=== PATIENT | male | born 1960 | race Caucasian/White ===

== ENCOUNTER → 2017-02-03 | Outpatient (CLI) | payer MEDICARE, OTHER ==
--- NOTE | 2017-02-03 13:26 | XR ---
EXAMINATION TYPE: XR chest 2V DATE OF EXAM: 02/03/2017 1:07 PM COMPARISON: NONE HISTORY: COPD exacerbation, cough TECHNIQUE: Frontal and lateral views of the chest are obtained. FINDINGS: There is no focal air space opacity, pleural effusion, or pneumothorax seen. The cardiac silhouette size is within normal limits. Lung volumes are increased. The osseous structures are inta ct. IMPRESSION: No acute cardiopulmonary process.
== END | disposition home or self-care (01) ==
LOC: RADXRMAIN 12:55
PROVIDERS: ATTEND Nurse Practitioner Family
DX: J44.1 Chronic obstructive pulmonary disease with (acute) exacerbation (principal)
CPT/HCPCS: 71020

== ENCOUNTER → 2018-01-22 | Outpatient (CLI) | payer MEDICARE, OTHER ==
--- NOTE | 2018-01-22 08:31 | CT ---
EXAMINATION TYPE: CT chest w con DATE OF EXAM: 01/22/2018 COMPARISON: NONE HISTORY: Cough CT DLP: 235.2 mGycm Automated exposure control for dose reduction was used. CONTRAST: CT scan of the chest is performed with IV Contrast, patient injected with 100 mL of Omnipaque 300. FINDINGS: LUNGS: The lungs are grossly clear, there is no concerning parenchymal mass or nodule identified. Mi ld upper lobe emphysematous change. There is no pleural effusion or pneumothorax seen. The tracheobr onchial tree is patent. MEDIASTINUM: There are no greater than 1 cm hilar or mediastinal lymph nodes. No pericardial effusi on is seen. Thoracic aorta is of normal caliber. The heart is not enlarged. UPPER ABDOMEN: Posterior segment right hepatic lobe hemangioma measuring 1.3 cm. Nonspecific 1.1 cm l esion of decreased attenuation with peripheral enhancement anterior segment right hepatic lobe may re flect hemangioma. Consider complete evaluation with the CT of the liver with hemangioma protocol. Sma ll sliding-type hiatal hernia. Hepatic steatosis. OTHER: No additional significant abnormality is seen. IMPRESSION: 1. Mild upper lobe emphysematous changes. 2. Probable hepatic hemangiomas which can be further characterized with contrast-enhanced hemangioma protocol CT.
== END | disposition home or self-care (01) ==
LOC: RADCTMAIN 07:28
PROVIDERS: ATTEND Internal Medicine Hematology & Oncology
DX: J43.9 Emphysema, unspecified (principal); Z87.891 Personal history of nicotine dependence; Z88.0 Allergy status to penicillin; Z88.8 Allergy status to other drugs, medicaments and biological substances
CPT/HCPCS: 71260; Q9967

== ENCOUNTER 2018-02-03 12:09 | Day surgery (SDC) | payer MEDICARE, OTHER ==
[2018-02-02 11:05] VITALS: BMI 22.2
[~2018-02-03 12:09] MED LIST: LIDOCAINE 1% 20 ML VIAL (10MG/ML) FOR IV START INTRADERMA PRN
[2018-02-03 13:06] VITALS: RESP 18; TEMP 97.7
[2018-02-03] MEDS: LACTATED RINGERS 1,000 ML IV SCH ×2 (13:14→13:57)
[2018-02-03] MEDS ORDERED: LIDOCAINE 1% 20 ML VIAL (10MG/ML) FOR IV START INTRADERMA ONE (13:15)
[2018-02-03] MEDS ORDERED: PROPOFOL 10 MG/ML 20 ML VIAL IV ONE (13:59)
--- NOTE | 2018-02-03 15:04 | P.PCN ---
Date of Procedure: 02/03/18 Procedure(s) Performed: Procedure: Colonoscopy and biopsy and polypectomy. Preoperative diagnosis: History of polyps and history of colitis. Postoperative diagnosis: 1. Mild sigmoid diverticulosis with no evidence of acute diverticulitis or strictures. 2. No evidence of colitis endoscopically random biopsies obtained. 3. Thee small polyps snared but no large polyps or cancer. Preparation: HalfLytely prep. Sedation: Was provided by anesthesia. Brief clinical history: The patient is a 57-year-old male who is scheduled for this evaluation because of history of colitis and history of polyps. The patient has no abdominal complaints, bleeding or anemia. His last colonoscopy was around 7 years ago. Procedure: With the patient on his left lateral decubitus position and after informed consent and adequate sedation, the perianal area was inspected and it did not show any fissures or fistulas. There were no masses felt on digital rectal examination. The Olympus CFQ 160L video colonoscope was then inserted in the rectum in the usual fashion and advanced to the cecum. I intubated the ileocecal valve and examined the terminal ileum. Terminal ileum and colon appeared healthy with no edema, erythema, friability, ulceration, exudation or spontaneous bleeding. I obtained random colon biopsies because of his history of colitis. There was occasional diverticular orifice seen in the sigmoid but no evidence of acute diverticulitis or strictures. 3 small polyps were seen to around the hepatic flexure and one in the proximal sigmoid all where snared and retrieved by suction but there were no large polyps or cancer. I retroflexed the endoscope in the rectum before the endoscope was withdrawn. The patient tolerated the procedure well. Plan: The patient was reassured. Will await pathology results. I anticipate repeating his colonoscopy in 5 years. He will follow up with you as planned.
[2018-02-03 15:20] VITALS: BP 123/80; PULSE 81
== END 2018-02-03 15:36 | disposition home or self-care (01) ==
LOC: ORWHC2ENDO 12:09
DX: D12.3 Benign neoplasm of transverse colon (principal); D12.5 Benign neoplasm of sigmoid colon; K57.30 Diverticulosis of large intestine without perforation or abscess without bleeding; Z86.010 Personal history of colon polyps; F17.210 Nicotine dependence, cigarettes, uncomplicated; J44.9 Chronic obstructive pulmonary disease, unspecified; M06.9 Rheumatoid arthritis, unspecified; Z79.899 Other long term (current) drug therapy; Z88.0 Allergy status to penicillin
CPT/HCPCS: 88305; 45380; 45385; J2704

== ENCOUNTER 2018-02-16 10:44 | Day surgery (SDC) | payer MEDICARE, OTHER ==
[2018-02-12 12:17] VITALS: BMI 22.2
[~2018-02-16 10:44] MED LIST changes: +LACTATED RINGERS 1,000 ML IV SCH; -LIDOCAINE 1% 20 ML VIAL (10MG/ML) FOR IV START INTRADERMA PRN; +Pre Op ABX Message 1 EACH MISC MISCELLANE ONE
[2018-02-16] MEDS ORDERED: LIDOCAINE 1% INJ 10MG/ML (20 ML MDV) ONE (12:17)
[2018-02-16] MEDS ORDERED: MIDAZOLAM 2 MG/2 ML VIAL ONE (12:17)
[2018-02-16] MEDS ORDERED: PROPOFOL 10 MG/ML 20 ML VIAL IV ONE (12:17)
[2018-02-16] MEDS ORDERED: fentaNYL (PF) 50 MCG/ML 2 ML AMP ONE (12:17)
--- NOTE | 2018-02-16 12:53 | PCN ---
PROCEDURE NOTE DATE OF SERVICE: 02/16/2018 PROCEDURE: Bone marrow aspirate and biopsy. INDICATION: Leukocytosis and peripheral blood was positive for BCR/ABL translocation. After obtaining consent from the patient, the procedure was performed in the endoscopy suite under general anesthesia performed by anesthesia team. The patient was put in the left lateral decubitus position. The right posterior superior iliac crest was localized. Skin was cleansed with ChloraPrep. All sterile procedures were followed. About to 2 mL of 2% Xylocaine was used for local anesthetic. Monoject needle was inserted, 15 mL aspirate and a 2 cm core biopsy was obtained without any difficulties. Pressure applied afterwards. There was negligible blood loss. Patient tolerated the procedure very well without any immediate complications. MMODL / IJN: [id number] /
[2018-02-16 12:54] VITALS: RESP 18
[2018-02-16 13:00] VITALS: BP 110/82; PULSE 64
[2018-02-16 13:02] LABS: HCT 46.9 % (39.0-53.0); HGB 16.4 gm/dL (13.0-17.5); MCH 31.2 pg (25.0-35.0); MCV 89.2 fL (80.0-100.0); Mean Platelet Volume 8.1; Platelet Count 364 k/uL (150-450); RBC 5.25 m/uL (4.30-5.90); RDW 15.9 % (11.5-15.5)
[2018-02-16 13:07] LABS: WBC 28.8 k/uL (3.8-10.6)
[2018-02-16 13:57] LABS: Neutrophils % (M) 70 %
[2018-02-16 13:58] LABS: Band Neutrophils % 2 %; Eosinophils # (M) 0.29 k/uL (0-0.7); Metamyelocytes # (M) 1.15 k/uL (0); Metamyelocytes % 4 %; Monocytes # (M) 1.15 k/uL (0-1.0); Myelocytes # (M) 1.15 k/uL (0); Myelocytes % 4 %; Nucleated Red Blood Cells 0 /100 WBC (0-0); Total Cells Counted 200; Toxic Granulation Present
== END 2018-02-16 13:24 | disposition home or self-care (01) ==
LOC: OR 10:44
PROVIDERS: ATTEND Internal Medicine Hematology & Oncology
DX: D72.828 Other elevated white blood cell count (principal); D72.820 Lymphocytosis (symptomatic); D72.821 Monocytosis (symptomatic); R71.8 Other abnormality of red blood cells; J43.9 Emphysema, unspecified; F20.9 Schizophrenia, unspecified; F32.9 Major depressive disorder, single episode, unspecified; Z86.010 Personal history of colon polyps; Z88.0 Allergy status to penicillin; F17.210 Nicotine dependence, cigarettes, uncomplicated; Z79.51 Long term (current) use of inhaled steroids; Z79.899 Other long term (current) drug therapy
CPT/HCPCS: 38222; 85025; J2250; J2001; J3010; J2704

== ENCOUNTER → 2019-02-02 | Outpatient (CLI) | payer MEDICARE, OTHER ==
--- NOTE | 2019-02-03 07:54 | XR ---
EXAMINATION TYPE: XR hand complete LT DATE OF EXAM: 02/02/2019 CLINICAL HISTORY: Fifth digit pain after remote injury. TECHNIQUE: Frontal, lateral and oblique images of the left hand are obtained. COMPARISON: None. FINDINGS: There is no acute fracture/dislocation evident in the left hand. Chronic fracture deformit y of the distal fifth metacarpal is noted. The joint spaces in the left hand appear within normal lockett its. The overlying soft tissue appears unremarkable. IMPRESSION: There is no acute fracture or dislocation in the left hand. Chronic fracture deformity o f the fifth distal left metacarpal.
== END | disposition home or self-care (01) ==
LOC: RADXRMAIN 16:52
PROVIDERS: ATTEND Pediatrics
DX: M84.442A Pathological fracture, left hand, initial encounter for fracture (principal)

== ENCOUNTER 2019-04-02 08:51 | Inpatient (IN) | payer MEDICARE, OTHER ==
[2019-04-02] MEDS ORDERED: methylPREDNISolone SOD SUCCI 125 MG/2 ML VIAL IV STA (09:09)
[2019-04-02] MEDS ORDERED: ALBUTEROL NEBULIZED 2.5 MG/3 ML INHALATION STA (09:09)
[2019-04-02] MEDS ORDERED: IPRATROPIUM 0.5 MG/2.5 ML NEBU INHALATION STA (09:09)
--- NOTE | 2019-04-02 09:12 | ED ---
General Adult HPI - General Chief complaint: Shortness of Breath Stated complaint: SOB Time Seen by Provider: 04/02/19 09:05 Source: patient, RN notes reviewed, old records reviewed Mode of arrival: ambulatory Limitations: no limitations - History of Present Illness Initial comments: 59-year-old male presents with 5 day history of cough and dyspnea. Patient has had productive cough which has worsened over the past 5 days. He was seen by his primary care physician and prescribed antibiotic and steroids. This is felt to improve his symptoms. He does endorse subjective fever and chills. No history DVT or PE. He has current history of leukemia and is being treated by oncology. Denies chest pain. Denies abdominal pain or nausea vomiting. Denies lower extremity pain or swelling. - Related Data Home Medications Medication Instructions Recorded Confirmed Sertraline HCl [Zoloft] 100 mg PO DAILY 02/02/18 04/02/19 Diphenox-Atrop 2.5-0.025 mg 1 tab PO 5XD PRN 04/02/19 04/02/19 [Lomotil] Imatinib Mesylate 400 mg PO DAILY 04/02/19 04/02/19 Allergies Allergy/AdvReac Type Severity Reaction Status Date / Time Penicillins Allergy Anaphylaxis Verified 04/02/19 09:36 Review of Systems ROS Statement: Those systems with pertinent positive or pertinent negative responses have been documented in the HPI. ROS Other: All systems not noted in ROS Statement are negative. Past Medical History Past Medical History: Cancer, COPD, Rheumatoid Arthritis (RA) Additional Past Medical History / Comment(s): SKIN CANCER, "chronic leukemia" per pt. History of Any Multi-Drug Resistant Organisms: None Reported Past Surgical History: Orthopedic Surgery Additional Past Surgical History / Comment(s): LEFT LEG- WITH OSEI, recent colonoscopy Past Anesthesia/Blood Transfusion Reactions: No Reported Reaction Past Psychological History: Depression, Schizophrenia Smoking Status: Current every day smoker Past Alcohol Use History: None Reported Past Drug Use History: None Reported - Past Family History Father Family Medical History: Cancer Additional Family Medical History / Comment(s): LEUKEMIA Brother(s) Family Medical History: Deep Vein Thrombosis (DVT) General Exam Limitations: no limitations General appearance: alert, in no apparent distress Head exam: Present: atraumatic, normocephalic Eye exam: Present: normal appearance, PERRL ENT exam: Present: normal exam Neck exam: Present: normal inspection. Absent: tenderness, meningismus Respiratory exam: Present: respiratory distress, wheezes, decreased breath sounds, prolonged expiratory Cardiovascular Exam: Present: regular rate, normal rhythm GI/Abdominal exam: Present: soft. Absent: distended, tenderness Extremities exam: Present: normal inspection, normal capillary refill. Absent: pedal edema, calf tenderness Neurological exam: Present: alert, oriented X3, CN II-XII intact. Absent: motor sensory deficit Psychiatric exam: Present: normal affect, normal mood Skin exam: Present: warm, dry, intact. Absent: cyanosis, diaphoretic Course Vital Signs 04/02/19 04/02/19 04/02/19 08:55 09:30 09:47 Temperature 97.5 F L Pulse Rate 88 77 85 Respiratory 20 20 Rate Blood Pressure 134/80 123/76 O2 Sat by Pulse 89 L 97 Oximetry 04/02/19 04/02/19 04/02/19 10:00 10:10 10:30 Temperature Pulse Rate 88 101 H 96 Respiratory 15 18 Rate Blood Pressure 113/78 122/71 O2 Sat by Pulse 99 95 Oximetry 04/02/19 10:59 Temperature Pulse Rate 94 Respiratory 16 Rate Blood Pressure 123/70 O2 Sat by Pulse 94 L Oximetry EKG Findings - EKG Comments: EKG Findings:: EKG: Normal sinus rhythm rate of 81, ND interval 148, QRS duration 102, QTC 441, suspect atrial enlargement, no ST segment elevation Medical Decision Making - Medical Decision Making 59-year-old male with cough and dyspnea. Patient has hypoxia on initial evaluation, he is wheezing and rhonchi throughout both lung thomas. Chest x-ray is obtained, negative for focal infiltrate, he has leukocytosis with a white blood cell count 15, MiraLAX and abnormalities which are replaced in the emergency department including hypokalemia and hypomagnesemia. CT is performed secondary to elevated d-dimer which shows concern for developing multifocal pneumonia. He is started on IV antibiotics. Will be admitted for COPD exacerbation. - Lab Data Result diagrams: 04/02/19 09:20 04/02/19 09:20 Lab Results 04/02/19 04/02/19 04/02/19 Range/Units 09:20 09:20 09:20 WBC 15.0 H (3.8-10.6) k/uL RBC 3.78 L (4.30-5.90) m/uL Hgb 11.9 L (13.0-17.5) gm/dL Hct 35.5 L (39.0-53.0) % MCV 93.9 (80.0-100.0) fL MCH 31.5 (25.0-35.0) pg MCHC 33.5 (31.0-37.0) g/dL RDW 15.5 (11.5-15.5) % Plt Count 343 (150-450) k/uL Neutrophils % 93 % Lymphocytes % 3 % Monocytes % 3 % Eosinophils % 1 % Basophils % 0 % Neutrophils # 14.0 H (1.3-7.7) k/uL Lymphocytes # 0.4 L (1.0-4.8) k/uL Monocytes # 0.5 (0-1.0) k/uL Eosinophils # 0.1 (0-0.7) k/uL Basophils # 0.0 (0-0.2) k/uL PT 10.2 (9.0-12.0) sec INR 0.9 (<1.2) APTT 27.2 (22.0-30.0) sec D-Dimer 0.68 H (<0.60) mg/L FEU Sodium 135 L (137-145) mmol/L Potassium 3.2 L (3.5-5.1) mmol/L Chloride 93 L (98-107) mmol/L Carbon Dioxide 35 H (22-30) mmol/L Anion Gap 7 mmol/L BUN 45 H (9-20) mg/dL Creatinine 0.45 L (0.66-1.25) mg/dL Est GFR (CKD-EPI)AfAm >90 (>60 ml/min/1.73 sqM) Est GFR (CKD-EPI)NonAf >90 (>60 ml/min/1.73 sqM) Glucose 142 H (74-99) mg/dL Plasma Lactic Acid Ortiz (0.7-2.0) mmol/L Calcium 9.6 (8.4-10.2) mg/dL Magnesium 1.5 L (1.6-2.3) mg/dL Total Bilirubin 0.3 (0.2-1.3) mg/dL AST 87 H (17-59) U/L ALT 48 (21-72) U/L Alkaline Phosphatase 51 (38-126) U/L Troponin I (0.000-0.034) ng/mL NT-Pro-B Natriuret Pep pg/mL Total Protein 6.1 L (6.3-8.2) g/dL Albumin 4.1 (3.5-5.0) g/dL 04/02/19 04/02/19 04/02/19 Range/Units 09:20 09:20 09:20 WBC (3.8-10.6) k/uL RBC (4.30-5.90) m/uL Hgb (13.0-17.5) gm/dL Hct (39.0-53.0) % MCV (80.0-100.0) fL MCH (25.0-35.0) pg MCHC (31.0-37.0) g/dL RDW (11.5-15.5) % Plt Count (150-450) k/uL Neutrophils % % Lymphocytes % % Monocytes % % Eosinophils % % Basophils % % Neutrophils # (1.3-7.7) k/uL Lymphocytes # (1.0-4.8) k/uL Monocytes # (0-1.0) k/uL Eosinophils # (0-0.7) k/uL Basophils # (0-0.2) k/uL PT (9.0-12.0) sec INR (<1.2) APTT (22.0-30.0) sec D-Dimer (<0.60) mg/L FEU Sodium (137-145) mmol/L Potassium (3.5-5.1) mmol/L Chloride (98-107) mmol/L Carbon Dioxide (22-30) mmol/L Anion Gap mmol/L BUN (9-20) mg/dL Creatinine (0.66-1.25) mg/dL Est GFR (CKD-EPI)AfAm (>60 ml/min/1.73 sqM) Est GFR (CKD-EPI)NonAf (>60 ml/min/1.73 sqM) Glucose (74-99) mg/dL Plasma Lactic Acid Ortiz 1.2 (0.7-2.0) mmol/L Calcium (8.4-10.2) mg/dL Magnesium (1.6-2.3) mg/dL Total Bilirubin (0.2-1.3) mg/dL AST (17-59) U/L ALT (21-72) U/L Alkaline Phosphatase (38-126) U/L Troponin I 0.031 (0.000-0.034) ng/mL NT-Pro-B Natriuret Pep 847 pg/mL Total Protein (6.3-8.2) g/dL Albumin (3.5-5.0) g/dL Disposition Clinical Impression: Acute exacerbation of chronic obstructive airways disease, Community acquired pneumonia Disposition: ADMITTED IP TO THIS HOSP Condition: Stable Is patient prescribed a controlled substance at d/c from ED?: No Referrals: Chava Manzo MD [Primary Care Provider] - 1-2 days Decision to Admit Reason: Admit from EC Decision Date: 04/02/19 Decision Time: 11:58
[2019-04-02 09:48] LABS: Basophils % (A) 0 %; Eosinophils # (A) 0.1 k/uL (0-0.7); Eosinophils % (A) 1 %; HCT 35.5 % (39.0-53.0); HGB 11.9 gm/dL (13.0-17.5); Lymphocytes # (A) 0.4 k/uL (1.0-4.8); Lymphocytes % (A) 3 %; MCH 31.5 pg (25.0-35.0); MCHC 33.5 g/dL (31.0-37.0); MCV 93.9 fL (80.0-100.0); Mean Platelet Volume 6.8; Monocytes # (A) 0.5 k/uL (0-1.0); Monocytes % (A) 3 %; Neutrophils % (A) 93 %; Platelet Count 343 k/uL (150-450); RBC 3.78 m/uL (4.30-5.90); RDW 15.5 % (11.5-15.5)
[2019-04-02 10:02] LABS: INR 0.9 (<1.2); Partial Thromboplastin Time 27.2 sec (22.0-30.0); Prothrombin Time 10.2 sec (9.0-12.0)
[2019-04-02 10:04] LABS: ALT 48 U/L (21-72); AST 87 U/L (17-59); Albumin 4.1 g/dL (3.5-5.0); Alkaline Phosphatase 51 U/L (38-126); Anion Gap 7 mmol/L; Blood Urea Nitrogen 45 mg/dL (9-20); Calcium 9.6 mg/dL (8.4-10.2); Carbon Dioxide 35 mmol/L (22-30); Chloride 93 mmol/L (98-107); Glucose 142 mg/dL (74-99); Magnesium 1.5 mg/dL (1.6-2.3); Potassium 3.2 mmol/L (3.5-5.1); Sodium 135 mmol/L (137-145); Total Bilirubin 0.3 mg/dL (0.2-1.3); Total Protein 6.1 g/dL (6.3-8.2)
[2019-04-02 10:30] LABS: D-Dimer 0.68 mg/L FEU (<0.60)
[2019-04-02] MEDS ORDERED: POTASSIUM CHLORIDE ER 20 MEQ TAB.ER PO STA (10:30)
[2019-04-02] MEDS ORDERED: AZITHROMYCIN 500 MG in SODIUM CHLORIDE 0.9% 250 ML IVPB STA (10:30)
--- NOTE | 2019-04-02 10:34 | XR ---
EXAMINATION TYPE: XR chest 2V DATE OF EXAM: 04/02/2019 COMPARISON: 02/03/2017 HISTORY: Shortness of breath TECHNIQUE: Frontal and lateral views of the chest are obtained. FINDINGS: Scattered senescent parenchymal changes noted. Hyperinflation compatible with COPD. No evidence for infiltrate. No evidence for atelectasis. Heart size is stable. Mediastinal structures are stable and grossly unremarkable. No evidence for hilar prominence. Degenerative changes dorsal spine. IMPRESSION: 1. No evidence for acute pulmonary disease.
--- NOTE | 2019-04-02 11:38 | CT ---
EXAMINATION TYPE: CT angio chest DATE OF EXAM: 04/02/2019 COMPARISON: CT chest January 22, 2018 HISTORY: Shortness of breath on exertion CT DLP: 266.1 mGycm. Automated Exposure Control for Dose Reduction was Utilized. CONTRAST: CTA scan of the thorax is performed with IV Contrast, patient injected with 100 mL of Isovue 370, pul monary embolism protocol. MIP Images are created on CT scanner and reviewed. FINDINGS: LUNGS: Moderate underlying emphysematous change is present most prominent in the lung apices. There i s nodular consolidation with small nodularity anterior inferior left lower lobe axial image 60 measur ing in total roughly 1.4 x 0.8 cm though the nodular component is smaller at roughly 4 mm coronal manas ge 58 for reference. Additional area of focal reticulonodular infiltrate left lower lobe posteriorly axial image 127 is noted. This is new from prior study. There is respiratory motion artifact degradat ion anterior right lung base limiting evaluation for subcentimeter nodularity. There is some compress sarah atelectasis in the posterior aspect of both lower lungs just above diaphragm axial image 147 for reference. No pleural effusion or pneumothorax is evident. Mild central peribronchial wall thickening is noted bilaterally. MEDIASTINUM: There is satisfactory enhancement of the pulmonary artery and its branches, there is no CT evidence for pulmonary embolism. There are no greater than 1 cm hilar or mediastinal lymph nodes. Prominent but subcentimeter prevascular lymph node axial image 62 is stable or slightly more promine nt from prior study image 23. No cardiomegaly or pericardial effusion is seen. OTHER: There is 1.9 cm low dense lesion right hepatic lobe axial image 149. Right greater than left b ilateral subareolar gynecomastia is redemonstrated. IMPRESSION: 1. No CT evidence for acute pulmonary embolism. 2. Mild to moderate underlying emphysematous change with suggestion of small areas of multifocal acut e infiltrate involving the left lower lobe, correlate clinically for developing pneumonia. Because of slight small nodularity, advise CT follow-up in 6 months time after treatment to reassess.
[2019-04-02] MEDS ORDERED: MAGNESIUM SULFATE-D5W PMX 1 GM in DEXTROSE/WATER 1 100ML.BAG IVPB ONE (11:44)
[2019-04-02] MEDS ORDERED: IPRATROPIUM-ALBUTEROL 3 ML NEB INHALATION PRN (11:55)
[2019-04-02] MEDS: methylPREDNISolone SOD SUCCI 125 MG/2 ML VIAL IV SCH ×2 (11:59→18:21)
[2019-04-02] MEDS: IPRATROPIUM-ALBUTEROL 3 ML NEB INHALATION SCH ×4 (12:10→23:54)
[2019-04-02] MEDS ORDERED: LEVOFLOXACIN 500MG-D5W PMX 500 MG in DEXTROSE/WATER 1 100ML.BAG IVPB SCH (13:00)
[2019-04-02] MEDS ORDERED: PNEUMOCOCCAL VACC-PNEUMOVAX 23 25 MCG/0.5 ML VIAL IM ONE (14:51)
[2019-04-02] MEDS: NICOTINE 21MG/24HR PATCH TRANSDERM SCH (22:13)
[2019-04-02] MEDS: ENOXAPARIN 40 MG/0.4 ML SYRINGE SQ SCH (22:27)
[2019-04-02] MEDS: guaiFENesin 600 MG TABLET.ER PO SCH (22:27)
[2019-04-02] MEDS: BUDESONIDE 1 MG/2 ML NEBU INHALATION SCH (23:54)
[2019-04-02] MEDS ORDERED: IPRATROPIUM-ALBUTEROL 3 ML NEB ONE (23:59)
[2019-04-03] MEDS: methylPREDNISolone SOD SUCCI 125 MG/2 ML VIAL IV SCH ×5 (00:18→23:54)
[2019-04-03] MEDS: IPRATROPIUM-ALBUTEROL 3 ML NEB INHALATION SCH ×6 (00:20→20:32)
--- NOTE | 2019-04-03 07:22 | HP ---
HISTORY AND PHYSICAL DATE OF ADMISSION: April 02, 2019 DATE OF SERVICE: April 02, 2019 PRESENTING COMPLAINT: Short of breath, cough. HISTORY OF PRESENT ILLNESS: Pleasant 59-year-old patient of Dr. Manzo. Chronic stable medical conditions include rheumatoid arthritis, CML, depression. Longstanding COPD who has continued to smoke. The patient started off a few days of increasing cough, shortness of breath, went down to Dr. Manzo's office, was given steroids, antibiotics, really did not get better. The patient was really wheezing quite a bit, very short of breath at rest. The cough is green sputum. He has had some fever, though no chills. Appetite is very poor. Admitted with COPD exacerbation. REVIEW OF SYSTEMS: CONSTITUTIONAL: Weak, tired, fever. HEENT: None. RESPIRATORY as above. CARDIOVASCULAR: None. GASTROINTESTINAL: None. GENITOURINARY: None. MUSCULOSKELETAL: Some pain in joints. DERMATOLOGICAL, HEMATOLOGIC, LYMPHATIC: None. PSYCHIATRY: Anxious. NEUROLOGICAL: None. PAST MEDICAL HISTORY: Rheumatoid arthritis, CML, schizophrenia, depression, COPD, benign colon polyps, skin cancer. PAST SURGICAL HISTORY: Surgical history of skin cancer removed, left upper leg with rods. PSYCH HISTORY: Schizophrenia, depression. SOCIAL HISTORY: Lives by himself. Smoking 1 1/2 packs a day since 1976. Alcohol none. FAMILY HISTORY: Of leukemia. HOME MEDICATIONS: 1. Zoloft 100 mg daily. 2. Imatinib 400 mg p.o. daily. 3. Lomotil 1 tab 5 times a day p.r.n. ALLERGIES: PENICILLIN. PHYSICAL EXAMINATION: VITAL SIGNS: Vital signs on presentation, temperature 97.5, pulse 88. Respiratory rate 20, blood pressure 134/80, pulse ox 89 percent on room air. GENERAL APPEARANCE: Thin build, sitting up, short of breath, somewhat dishevelled. EYES: Pupils equal. Conjunctivae normal. HEENT: External appearance of nose and ears normal. Oral cavity normal. NECK: JVD not raised. Mass not palpable. RESPIRATORY: Effort increased. LUNGS: Diminished breath sounds. Prolonged expiration, accessory muscles are working, not able to speak to speak in full sentences. CARDIOVASCULAR: 1st and 2nd sounds normal. No edema. ABDOMEN: Soft, nontender. Liver and spleen not palpable. LYMPHATIC: No lymph nodes palpable in the neck and axilla. PSYCHIATRY: Alert and oriented x3. Mood and affect anxious-appearing. NEUROLOGICAL: Pupils equal. Cranial nerves grossly intact. Power and sensation grossly intact. INVESTIGATIONS: White count 15, hemoglobin 11.9. Increased neutrophils. Potassium 3.2, BUN 45, creatinine 0.45, albumin poor 4.1. EKG tracing personally reviewed by me shows normal sinus rhythm. Chest x-ray film, personally reviewed by me shows severe hyperinflation. No obvious infiltrate. Chest CTA report is not seen. ASSESSMENT: 1. Acute severe chronic obstructive pulmonary disease exacerbation in a current smoker. 2. Chronic nicotine dependence patient is a cigarette smoker. 3. Acute tracheobronchitis. 4. Chronic rheumatoid arthritis. 5. Chronic myeloid leukemia takes oral pill for the same. 6. Depression, not otherwise specified. 7. Acute hypoxic respiratory failure underlying chronic obstructive pulmonary disease. PLAN: Patient will be started on nebulized bronchodilators, IV steroids, inhaled steroids. Also put the patient on oral antibiotics. We will consult Pulmonary and Hematology. The patient is advised against smoking. Given a nicotine patch. Lovenox for DVT prophylaxis. Copy to Dr. Manzo. MMROSINAL / DAYAN: [id number] /
[2019-04-03] MEDS: BUDESONIDE 1 MG/2 ML NEBU INHALATION SCH ×2 (08:38→20:32)
[2019-04-03 08:52] LABS: Basophils % (A) 0 %; Eosinophils % (A) 0 %; HCT 35.7 % (39.0-53.0); HGB 11.6 gm/dL (13.0-17.5); Lymphocytes # (A) 0.4 k/uL (1.0-4.8); Lymphocytes % (A) 4 %; MCH 31.1 pg (25.0-35.0); MCHC 32.6 g/dL (31.0-37.0); MCV 95.4 fL (80.0-100.0); Mean Platelet Volume 6.9; Monocytes # (A) 0.3 k/uL (0-1.0); Monocytes % (A) 3 %; Neutrophils # (A) 10.3 k/uL (1.3-7.7); Neutrophils % (A) 93 %; Platelet Count 350 k/uL (150-450); RBC 3.74 m/uL (4.30-5.90); RDW 15.9 % (11.5-15.5); WBC 11.1 k/uL (3.8-10.6)
[2019-04-03] MEDS ORDERED: CEFDINIR 300 MG CAP PO SCH (09:00)
[2019-04-03 09:14] LABS: ALT 49 U/L (21-72); AST 58 U/L (17-59); Albumin 3.7 g/dL (3.5-5.0); Alkaline Phosphatase 44 U/L (38-126); Anion Gap 7 mmol/L; Blood Urea Nitrogen 23 mg/dL (9-20); Carbon Dioxide 38 mmol/L (22-30); Chloride 91 mmol/L (98-107); Glucose 205 mg/dL (74-99); Magnesium 1.7 mg/dL (1.6-2.3); Potassium 3.1 mmol/L (3.5-5.1); Sodium 136 mmol/L (137-145); Total Bilirubin 0.3 mg/dL (0.2-1.3); Total Protein 5.7 g/dL (6.3-8.2)
[2019-04-03] MEDS: NICOTINE 21MG/24HR PATCH TRANSDERM SCH (10:13)
[2019-04-03] MEDS: IMATINIB MESYLATE 400 MG PO SCH ×2 (10:13→13:38)
[2019-04-03] MEDS: ENOXAPARIN 40 MG/0.4 ML SYRINGE SQ SCH (10:16)
[2019-04-03] MEDS: SERTRALINE 100 MG TAB PO SCH (10:16)
[2019-04-03] MEDS: guaiFENesin 600 MG TABLET.ER PO SCH ×2 (10:16→21:13)
[2019-04-03] MEDS ORDERED: Potassium Replacement Protocol 1 EACH MISC MISCELLANE PRN ×2 (10:45→13:07)
[2019-04-03] MEDS: FORMOTEROL FUMARATE 20 MCG/2 ML NEBU INHALATION SCH ×2 (11:49→20:32)
--- NOTE | 2019-04-03 12:01 | P.CNPUL ---
History of Present Illness Consult date: 04/03/19 Reason for consult: dyspnea, COPD Chief complaint: Shortness of breath History of present illness: This is a 59-year-old gentleman who presented emergency department complaining of shortness of breath and wheezing. He states he went to his primary care physician's office and they did a breathing treatment and gave him antibiotics and steroids. He states it did not seem to help him and he was becoming more short of breath. The patient does not wear home oxygen. He states he has been told he has COPD in the past but has never had a pulmonary function test. He was on Ventolin inhaler at home but states he ran out of it. He does have a nebulizer at home that he just got a few days ago. He states he stopped smoking 4 days ago when he started feeling bad. He used to smoke 1-1/2 packs per day since 15 years old. He states that many years ago he was in the hospital and on the ventilator because of a penicillin ALLERGY. The patient currently does not wear he is on disability. However he states that he was exposed to asbestos insulation when he was younger and working. He does have seasonal ALLERGIES as well. He has 1 dog that is mostly outdoor dog. Review of Systems All systems: negative Past Medical History Past Medical History: Cancer, COPD, Rheumatoid Arthritis (RA) Additional Past Medical History / Comment(s): CML-takes oral chemo, skin cancer with removals, benign colon polyps History of Any Multi-Drug Resistant Organisms: None Reported Past Surgical History: Orthopedic Surgery Additional Past Surgical History / Comment(s): Colonoscopy/benign polypectomy, skin cancer removals, L upper leg with kira, BMB. Past Anesthesia/Blood Transfusion Reactions: No Reported Reaction, Motion S ickness Smoking Status: Current every day smoker - Past Family History Father Family Medical History: Cancer Additional Family Medical History / Comment(s): LEUKEMIA Brother(s) Family Medical History: Deep Vein Thrombosis (DVT) Mother Family Medical History: No Reported History Additional Family Medical History / Comment(s): Mother was healthy. Medications and Allergies Home Medications Medication Instructions Recorded Confirmed Type Sertraline HCl [Zoloft] 100 mg PO DAILY 02/02/18 04/02/19 History Diphenox-Atrop 2.5-0.025 mg 1 tab PO 5XD PRN 04/02/19 04/02/19 History [Lomotil] Imatinib Mesylate 400 mg PO DAILY 04/02/19 04/02/19 History Allergies Allergy/AdvReac Type Severity Reaction Status Date / Time Penicillins Allergy Anaphylaxis Verified 04/02/19 09:36 Physical Exam Osteopathic Statement: *. No significant issues noted on an osteopathic structural exam other than those noted in the History and Physical/Consult. Vitals: Vital Signs Temp Pulse Pulse Resp BP BP Pulse Ox 04/03/19 11:49 88 04/03/19 08:56 87 04/03/19 08:38 86 04/03/19 05:03 92 04/03/19 04:45 98.7 F 83 24 135/74 96 04/03/19 00:42 96 04/03/19 00:29 96 97 04/02/19 20:52 100 04/02/19 20:40 100 04/02/19 20:10 98.2 F 77 22 122/61 97 04/02/19 16:33 96 04/02/19 16:20 96 04/02/19 13:18 98.1 F 91 17 115/69 93 L 04/02/19 12:30 99 18 110/68 04/02/19 12:22 92 04/02/19 12:10 87 04/02/19 12:00 85 20 115/66 Intake and Output 04/02/19 04/03/19 04/03/19 22:59 06:59 14:59 Intake Total 590 Balance 590 Intake: Oral 590 Other: Voiding Method Toilet Toilet Urinal Urinal # Voids 1 2 # Bowel Movements 1 Gen.: Patient is alert and oriented 3, no acute distress Cardiovascular: Regular rate and rhythm, S1/S2 Lungs: Diminished breath sounds bilaterally with scattered expiratory wheezing Abdomen: Soft nontender nondistended positive bowel sounds Extremities: No edema Results - Laboratory Findings CBC and BMP: 04/03/19 08:21 04/03/19 08:21 PT/INR, D-dimer PT 10.2 sec (9.0-12.0) 04/02/19 09:20 INR 0.9 (<1.2) 04/02/19 09:20 D-Dimer 0.68 mg/L FEU (<0.60) H 04/02/19 09:20 Abnormal lab findings: Abnormal Labs 04/02/19 04/02/19 04/02/19 09:20 09:20 09:20 WBC 15.0 H RBC 3.78 L Hgb 11.9 L Hct 35.5 L RDW Neutrophils # 14.0 H Lymphocytes # 0.4 L D-Dimer 0.68 H Sodium 135 L Potassium 3.2 L Chloride 93 L Carbon Dioxide 35 H BUN 45 H Creatinine 0.45 L Glucose 142 H Magnesium 1.5 L AST 87 H Total Protein 6.1 L 04/03/19 04/03/19 08:21 08:21 WBC 11.1 H RBC 3.74 L Hgb 11.6 L Hct 35.7 L RDW 15.9 H Neutrophils # 10.3 H Lymphocytes # 0.4 L D-Dimer Sodium 136 L Potassium 3.1 L Chloride 91 L Carbon Dioxide 38 H BUN 23 H Creatinine 0.42 L Glucose 205 H Magnesium AST Total Protein 5.7 L - Diagnostic Findings Chest x-ray: report reviewed, image reviewed CT scan - chest: report reviewed, image reviewed Assessment and Plan Assessment: Acute hypoxic respiratory failure Acute exacerbation of COPD/emphysema Leukocytosis Left lower lobe she was 80 acquired pneumonia Pulmonary nodules Active tobacco abuse Chronic rheumatoid arthritis, could be contributing to pulmonary nodules Chronic myeloid leukemia Depression Normochromic normocytic anemia Hyponatremia with dehydration Hypokalemia Hypomagnesemia O2 to maintain saturation greater than or equal to 90% Pulmicort and Perforomist Duo nebs Singulair Steroid taper Incentive spirometry and pulmonary hygiene Sputum culture Mucinex Antibiotics: Levaquin Replace K and Mg IVF hydration, monitor Na GI and DVT prophylaxis Check leginella, mycoplasma, IgE, allergy panel, A1AT Outpatient pulmonary function test Smoking cessation is highly recommended, patient asking to try Patria Thank you for this consultation we'll continue to follow along
[2019-04-03] MEDS ORDERED: SODIUM CHLORIDE 0.9% 1,000 ML IV SCH (12:15)
[2019-04-03] MEDS: LEVOFLOXACIN 500MG-D5W PMX 500 MG in DEXTROSE/WATER 1 100ML.BAG IVPB SCH (13:17)
[2019-04-03] MEDS: POTASSIUM CHLORIDE ER 20 MEQ TAB.ER PO SCH ×3 (13:40→17:49)
[2019-04-03] MEDS ORDERED: DIPHENOX-ATROP 2.5-0.025 MG 1 EACH TAB PO PRN (14:55)
[2019-04-03 16:03] VITALS: BMI 20.5
[2019-04-03 16:56] LABS: Potassium 3.1 mmol/L (3.5-5.1)
[2019-04-03 17:11] LABS: Glucose,Whole Blood 182 mg/dL (75-99)
[2019-04-03] MEDS: INSULIN ASPART (NovoLOG) 100 UNIT/ML VIAL SQ SCH ×2 (17:49→21:12)
[2019-04-03] MEDS: 0.9% NACL WITH KCL 40 MEQ/L 1,000 ML IV SCH (17:57)
--- NOTE | 2019-04-03 18:33 | PN ---
PROGRESS NOTE DATE OF SERVICE: 04/03/2019 59-year-old gentleman admitted with COPD acute exacerbation also had possibly acute purulent tracheobronchitis. Patient on penicillin. Chest CTA showed no acute CT evidence of pulmonary embolus, but the patient had small areas of focal pneumonia in the left lower lobe and also clinically developed pneumonia. Patient on broad- spectrum IV antibiotics. PAST MEDICAL HISTORY: Reviewed. REVIEW OF SYSTEMS: CARDIOVASCULAR: No angina or palpitations. RESPIRATION: As mentioned earlier. GI: As mentioned earlier. : No dysuria. CENTRAL NERVOUS SYSTEM: No numbness or weakness. CURRENT MEDICATIONS: Reviewed and include: 1. DuoNeb q.i.d. and p.r.n. 2. Pulmicort 1 mg b.i.d. 3. Lovenox 40 mg subcu. 4. Perforomist 20 mg b.i.d. 5. Levaquin. 6. Solu-Medrol 60 IV q.6h. 7. Replacement protocols. PHYSICAL EXAM: Patient is alert, oriented x3. Pulse is 99, blood pressure 120/70, respirations 16, temperature 98.2, pulse ox 98% on 2 L. HEENT is conjunctivae normal. Oral mucosa moist. NECK is no jugular venous distention. No carotid bruit. No lymph node enlargement. CARDIOVASCULAR: S1, S2 muffled. RESPIRATORY: Breath sounds diminished in the bases. Bilateral scattered rhonchi and crackles. ABDOMEN: Soft, nontender. LEGS are no edema, no swelling. CENTRAL NERVOUS SYSTEM: No focal deficits. LAB STUDIES: WBC 11.8, hemoglobin ntd, sodium 130, potassium 3.1, glucose 205, magnesium is 1.7. ASSESSMENT: 1. Chronic obstructive pulmonary disease exacerbation with acute left lower pneumonia with acute hypoxic respiratory failure present on admission. 2. Hypokalemia. 3. History of nicotine dependence. 4. Chronic rheumatoid arthritis. 5. Chronic myeloid leukemia. 6. Depression. 7. Hyponatremia. 8. Increased WBC. 9. History of depression. 10.Schizophrenia. 11.Continued ongoing nicotine dependence. RECOMMENDATIONS AND DISCUSSION: This 59-year-old gentleman who presented with multiple complex medical issues, we will monitor the patient closely. Continue the current medications, management and symptomatic treatment. Continue the IV steroids. I would recommend broad- spectrum IV antibiotics. Otherwise, closely follow with Pulmonary. Repeat lytes. Guarded prognosis because of multiple complex medical issues. Further recommendations to follow. Repeat potassium. Repeat lytes, repeat magnesium. MMODL / IJN: [id number] / RAFAEL
[2019-04-03 20:14] LABS: Appearance,Urine Clear (Clear); Bilirubin,Urine Negative (Negative); Blood,Urine Negative (Negative); Color,Urine Yellow; Glucose,Urine (UA) 3+ (Negative); Ketones,Urine Negative (Negative); Leukocyte Esterase,Urine Negative (Negative); Nitrite,Urine Negative (Negative); PH, Urine 6.5 (5.0-8.0); Protein,Urine Trace (Negative); Specific Gravity,Urine 1.023 (1.001-1.035); Urobilinogen,Urine <2.0 mg/dL (<2.0)
[2019-04-03 20:52] LABS: Glucose,Whole Blood 194 mg/dL (75-99)
--- NOTE | 2019-04-03 23:37 | P.CONS ---
History of Present Illness - Reason for Consult Consult date: 04/03/19 CML on Gleevec. Acute respiratory failure - History of Present Illness The patient is a 9-year-old white male, well known to our service. The patient was initially evaluated in 02/09 for persistent leukocytosis, and diagnosed with chronic myeloid leukemia, chronic phase. He was placed on Gleevec, and achieved CHR an MMR. He continues on the same with good tolerance. The patient has a known history of COPD, and chronic smoking, 1.5 packs per day. He does have an inhaler, but ran out of it recently. He does not use oxygen at home, and does not have any regular follow-up with pulmonary medicine. The patient has been having increasing shortness of breath over the past week, with increased cough. He did not respond to outpatient steroids and antibiotics and therefore came into the hospital where he was admitted for further management. Chest x-ray was negative. CTA was negative for PE but showed COPD, with possible developing infiltrate in the left lower lobe. WBC has noted to be mildly increased, with normal differential. Hemoglobin and platelets were normal. Review of Systems Constitutional: Reports fatigue Eyes: denies blurred vision, denies pain Ears: deny: decreased hearing, ear discharge, earache, tinnitus Ears, nose, mouth and throat: Denies headache, Denies sore throat Cardiovascular: Reports dyspnea on exertion Respiratory: Reports cough, Reports dyspnea Gastrointestinal: Denies abdominal pain, Denies diarrhea, Denies nausea, Denies vomiting Genitourinary: Reports as per HPI Musculoskeletal: Reports muscle weakness, Denies myalgias Integumentary: Denies pruritus, Denies rash Neurological: Reports weakness, Denies numbness Psychiatric: Denies anxiety, Denies depression Endocrine: Denies fatigue, Denies weight change Hematologic/Lymphatic: Reports as per HPI Past Medical History Past Medical History: Cancer, COPD, Rheumatoid Arthritis (RA) Additional Past Medical History / Comment(s): CML-takes oral chemo, skin cancer with removals, benign colon polyps History of Any Multi-Drug Resistant Organisms: None Reported Past Surgical History: Orthopedic Surgery Additional Past Surgical History / Comment(s): Colonoscopy/benign polypectomy, skin cancer removals, L upper leg with kira, BMB. Past Anesthesia/Blood Transfusion Reactions: No Reported Reaction, Motion Sickness Smoking Status: Current every day smoker - Past Family History Father Family Medical History: Cancer Additional Family Medical History / Comment(s): LEUKEMIA Brother(s) Family Medical History: Deep Vein Thrombosis (DVT) Mother Family Medical History: No Reported History Additional Family Medical History / Comment(s): Mother was healthy. Medications and Allergies Home Medications Medication Instructions Recorded Confirmed Type Sertraline HCl [Zoloft] 100 mg PO DAILY 02/02/18 04/02/19 History Diphenox-Atrop 2.5-0.025 mg 1 tab PO 5XD PRN 04/02/19 04/02/19 History [Lomotil] Imatinib Mesylate 400 mg PO DAILY 04/02/19 04/02/19 History Allergies Allergy/AdvReac Type Severity Reaction Status Date / Time Penicillins Allergy Anaphylaxis Verified 04/02/19 09:36 Physical Exam Vitals: Vital Signs Temp Pulse Pulse Resp BP Pulse Ox 04/03/19 16:52 90 18 04/03/19 16:42 84 18 04/03/19 13:29 98.3 F 99 16 120/70 92 L 04/03/19 12:01 90 04/03/19 11:49 88 04/03/19 08:56 87 04/03/19 08:38 86 04/03/19 05:03 92 04/03/19 04:45 98.7 F 83 24 135/74 96 04/03/19 00:42 96 04/03/19 00:29 96 97 04/02/19 20:52 100 04/02/19 20:40 100 Intake and Output 04/03/19 04/03/19 04/03/19 06:59 14:59 22:59 Intake Total 1100 Balance 1100 Intake: Oral 1100 Other: Voiding Method Toilet Toilet Toilet Urinal Urinal Urinal # Voids 2 3 1 Weight 64.864 kg - Constitutional General appearance: mild distress - EENT Eyes: EOMI, PERRLA ENT: hearing grossly normal, normal oropharynx - Neck Neck: no lymphadenopathy Thyroid: bilateral: normal size - Respiratory Respiratory: bilateral: diminished, wheezing, prolonged expiration - Cardiovascular Rhythm: regular Heart sounds: normal: S1, S2 - Gastrointestinal General gastrointestinal: normal bowel sounds, soft - Integumentary Integumentary: normal - Neurologic Neurologic: CNII-XII intact - Musculoskeletal Musculoskeletal: generalized weakness, strength equal bilaterally - Psychiatric Psychiatric: A&O x's 3, appropriate affect Results CBC & Chem 7: 04/03/19 08:21 04/03/19 16:35 Labs: Abnormal Lab Results - Last 24 Hours (Table) 04/03/19 04/03/19 04/03/19 Range/Units 08:21 08:21 08:21 WBC 11.1 H (3.8-10.6) k/uL RBC 3.74 L (4.30-5.90) m/uL Hgb 11.6 L (13.0-17.5) gm/dL Hct 35.7 L (39.0-53.0) % RDW 15.9 H (11.5-15.5) % Neutrophils # 10.3 H (1.3-7.7) k/uL Lymphocytes # 0.4 L (1.0-4.8) k/uL Sodium 136 L (137-145) mmol/L Potassium 3.1 L (3.5-5.1) mmol/L Chloride 91 L (98-107) mmol/L Carbon Dioxide 38 H (22-30) mmol/L BUN 23 H (9-20) mg/dL Creatinine 0.42 L (0.66-1.25) mg/dL Glucose 205 H (74-99) mg/dL POC Glucose (mg/dL) (75-99) mg/dL Total Protein 5.7 L (6.3-8.2) g/dL IgE 256.00 H (0.00-114.00) IU/mL 04/03/19 04/03/19 Range/Units 16:35 17:08 WBC (3.8-10.6) k/uL RBC (4.30-5.90) m/uL Hgb (13.0-17.5) gm/dL Hct (39.0-53.0) % RDW (11.5-15.5) % Neutrophils # (1.3-7.7) k/uL Lymphocytes # (1.0-4.8) k/uL Sodium 134 L (137-145) mmol/L Potassium 3.1 L (3.5-5.1) mmol/L Chloride 90 L (98-107) mmol/L Carbon Dioxide 36 H (22-30) mmol/L BUN (9-20) mg/dL Creatinine (0.66-1.25) mg/dL Glucose (74-99) mg/dL POC Glucose (mg/dL) 182 H (75-99) mg/dL Total Protein (6.3-8.2) g/dL IgE (0.00-114.00) IU/mL Microbiology - Last 24 Hours (Table) 04/03/19 00:37 Gram Stain - Preliminary Sputum Sputum Culture - Preliminary 04/02/19 09:20 Blood Culture - Preliminary Blood No Growth after 24 hours Chest x-ray: report reviewed CT scan - chest: report reviewed ( ) Assessment and Plan (1) Acute exacerbation of chronic obstructive airways disease Narrative/Plan: The patient has a known history of COPD, as described. He has not been compliant with optimal treatment. He is presenting with COPD exacerbation with possible left-sided pneumonia. This is unrelated to his CML, or CML treatment. Defer to the admitting service and pulmonary medicine for continued management Current Visit: Yes Status: Acute Code(s): J44.1 - CHRONIC OBSTRUCTIVE PULMONARY DISEASE W (ACUTE) EXACERBATION SNOMED Code(s): 176930214 (2) CML (chronic myelocytic leukemia) Narrative/Plan: patient is currently on Gleevec, in remission. He reports good compliance with his medication. As noted, his current presentation is unrelated to his CML or CML treatment. WBC is mildly elevated, with predominant neutrophilia, due to acute illness and steroid use. The patient was advised that this does not represent CML recurrence. There is no cord medication to the patient continuing Gleevec while in the hospital. He can use his own supply from home. This was discussed with nursing. Current Visit: No Status: Acute Code(s): C92.10 - CHRONIC MYELOID LEUK, BCR /ABL-POSITIVE, NOT ACHIEVE REMIS SNOMED Code(s): 38513376
[2019-04-04] MEDS: IPRATROPIUM-ALBUTEROL 3 ML NEB INHALATION SCH ×7 (00:28→23:51)
[2019-04-04] MEDS: methylPREDNISolone SOD SUCCI 125 MG/2 ML VIAL IV SCH ×2 (06:11→12:23)
[2019-04-04 06:49] LABS: Glucose,Whole Blood 173 mg/dL (75-99)
[2019-04-04] MEDS: FORMOTEROL FUMARATE 20 MCG/2 ML NEBU INHALATION SCH ×2 (07:53→19:11)
[2019-04-04] MEDS: BUDESONIDE 1 MG/2 ML NEBU INHALATION SCH ×2 (08:01→19:11)
[2019-04-04 08:08] LABS: Basophils % (A) 0 %; Eosinophils % (A) 0 %; HCT 36.4 % (39.0-53.0); HGB 11.6 gm/dL (13.0-17.5); Lymphocytes # (A) 0.6 k/uL (1.0-4.8); Lymphocytes % (A) 5 %; MCH 30.3 pg (25.0-35.0); MCV 94.8 fL (80.0-100.0); Mean Platelet Volume 6.4; Monocytes # (A) 0.4 k/uL (0-1.0); Monocytes % (A) 4 %; Neutrophils # (A) 10.9 k/uL (1.3-7.7); Neutrophils % (A) 90 %; Platelet Count 396 k/uL (150-450); RBC 3.84 m/uL (4.30-5.90); RDW 15.8 % (11.5-15.5)
[2019-04-04 08:26] LABS: Anion Gap 7 mmol/L; Blood Urea Nitrogen 19 mg/dL (9-20); Carbon Dioxide 36 mmol/L (22-30); Chloride 92 mmol/L (98-107); Glucose 160 mg/dL (74-99); Magnesium 1.6 mg/dL (1.6-2.3); Sodium 135 mmol/L (137-145)
[2019-04-04] MEDS: guaiFENesin 600 MG TABLET.ER PO SCH ×2 (09:54→20:23)
[2019-04-04] MEDS: SERTRALINE 100 MG TAB PO SCH (09:54)
[2019-04-04] MEDS: INSULIN ASPART (NovoLOG) 100 UNIT/ML VIAL SQ SCH ×4 (09:55→20:23)
[2019-04-04] MEDS: ENOXAPARIN 40 MG/0.4 ML SYRINGE SQ SCH (09:55)
[2019-04-04] MEDS: PANTOPRAZOLE 40 MG TABLET PO SCH (09:55)
[2019-04-04] MEDS: NICOTINE 21MG/24HR PATCH TRANSDERM SCH (09:56)
[2019-04-04] MEDS: IMATINIB MESYLATE 400 MG PO SCH (09:56)
[2019-04-04 11:33] LABS: Glucose,Whole Blood 163 mg/dL (75-99)
[2019-04-04] MEDS: 0.9% NACL WITH KCL 40 MEQ/L 1,000 ML IV SCH (12:22)
[2019-04-04] MEDS: LEVOFLOXACIN 500MG-D5W PMX 500 MG in DEXTROSE/WATER 1 100ML.BAG IVPB SCH (12:23)
--- NOTE | 2019-04-04 12:36 | P.PN ---
Subjective Progress Note Date: 04/04/19 04/04/2018: Patient seen and examined. Patient states he is feeling a little bit better but he is still coughing and bringing up phlegm. The patient states he thought his pneumonia would be gone by now. It is explained to the patient that he could take several weeks for pneumonia to clear up and for him to feel back to self. The patient complains of continued wheezing. He is currently doing a breathing treatment. Objective - Vital Signs Vital signs: Vital Signs Temp 98.4 F 04/04/19 06:00 Pulse 90 04/04/19 12:21 Resp 20 04/04/19 06:00 BP 112/71 04/04/19 06:00 Pulse Ox 90 L 04/04/19 12:21 Intake & Output 04/03/19 04/04/19 04/04/19 18:59 06:59 18:59 Intake Total 1100 800 Balance 1100 800 Weight 64.864 kg Intake: Intake, IV Titration 450 Amount 0.9% NaCl with KCl 40 Meq 450 /l 1,000 ml @ 50 mls/hr IV .Q20H [facility] Rx#: [id number] Oral 1100 350 Other: Voiding Method Toilet Toilet Toilet Urinal Urinal Urinal # Voids 3 1 - Exam Gen.: Patient is alert and oriented 3, no acute distress Cardiovascular: Regular rate and rhythm, S1/S2 Lungs: Diminished breath sounds bilaterally with diffuse bilateral expiratory wheezing Abdomen: Soft nontender nondistended positive bowel sounds Extremities: No edema - Labs CBC & Chem 7: 04/04/19 07:26 04/04/19 07:26 Labs: Abnormal Lab Results - Last 24 Hours (Table) 04/03/19 04/03/19 04/03/19 Range/Units 08:21 14:55 16:35 WBC (3.8-10.6) k/uL RBC (4.30-5.90) m/uL Hgb (13.0-17.5) gm/dL Hct (39.0-53.0) % RDW (11.5-15.5) % Neutrophils # (1.3-7.7) k/uL Lymphocytes # (1.0-4.8) k/uL Sodium 134 L (137-145) mmol/L Potassium 3.1 L (3.5-5.1) mmol/L Chloride 90 L (98-107) mmol/L Carbon Dioxide 36 H (22-30) mmol/L Creatinine (0.66-1.25) mg/dL Glucose (74-99) mg/dL POC Glucose (mg/dL) (75-99) mg/dL Urine Protein Trace H (Negative) Urine Glucose (UA) 3+ H (Negative) IgE 256.00 H (0.00-114.00) IU/mL 04/03/19 04/03/19 04/04/19 Range/Units 17:08 20:51 06:47 WBC (3.8-10.6) k/uL RBC (4.30-5.90) m/uL Hgb (13.0-17.5) gm/dL Hct (39.0-53.0) % RDW (11.5-15.5) % Neutrophils # (1.3-7.7) k/uL Lymphocytes # (1.0-4.8) k/uL Sodium (137-145) mmol/L Potassium (3.5-5.1) mmol/L Chloride (98-107) mmol/L Carbon Dioxide (22-30) mmol/L Creatinine (0.66-1.25) mg/dL Glucose (74-99) mg/dL POC Glucose (mg/dL) 182 H 194 H 173 H (75-99) mg/dL Urine Protein (Negative) Urine Glucose (UA) (Negative) IgE (0.00-114.00) IU/mL 04/04/19 04/04/19 04/04/19 Range/Units 07:26 07:26 11:31 WBC 12.0 H (3.8-10.6) k/uL RBC 3.84 L (4.30-5.90) m/uL Hgb 11.6 L (13.0-17.5) gm/dL Hct 36.4 L (39.0-53.0) % RDW 15.8 H (11.5-15.5) % Neutrophils # 10.9 H (1.3-7.7) k/uL Lymphocytes # 0.6 L (1.0-4.8) k/uL Sodium 135 L (137-145) mmol/L Potassium (3.5-5.1) mmol/L Chloride 92 L (98-107) mmol/L Carbon Dioxide 36 H (22-30) mmol/L Creatinine 0.46 L (0.66-1.25) mg/dL Glucose 160 H (74-99) mg/dL POC Glucose (mg/dL) 163 H (75-99) mg/dL Urine Protein (Negative) Urine Glucose (UA) (Negative) IgE (0.00-114.00) IU/mL Microbiology - Last 24 Hours (Table) 04/02/19 09:20 Blood Culture - Preliminary Blood No Growth after 48 hours 04/03/19 14:50 Gram Stain - Preliminary Sputum 04/03/19 00:37 Gram Stain - Preliminary Sputum Sputum Culture - Preliminary Assessment and Plan Assessment: Acute hypoxic respiratory failure Acute exacerbation of COPD/emphysema Leukocytosis Left lower lobe she was 80 acquired pneumonia Pulmonary nodules Elevated IgE at 256 Active tobacco abuse Chronic rheumatoid arthritis, could be contributing to pulmonary nodules Chronic myeloid leukemia Depression Normochromic normocytic anemia Hyponatremia with dehydration Hypokalemia Hypomagnesemia O2 to maintain saturation greater than or equal to 90% Pulmicort and Perforomist Duo nebs Singulair Steroid taper Incentive spirometry and pulmonary hygiene Sputum culture Mucinex Antibiotics: Levaquin Replace K and Mg IVF hydration, monitor Na GI and DVT prophylaxis Check legionella, mycoplasma, allergy panel, A1AT Outpatient pulmonary function test Smoking cessation is highly recommended, patient asking to try Zyban
[2019-04-04] MEDS: buPROPion SR 150 MG TABLET.ER PO SCH (12:47)
[2019-04-04 17:08] LABS: Glucose,Whole Blood 284 mg/dL (75-99)
[2019-04-04] MEDS: methylPREDNISolone SOD SUCCI 40 MG/ML 1 ML VIAL IV SCH (17:46)
--- NOTE | 2019-04-04 18:49 | XR ---
EXAMINATION TYPE: XR chest 1V portable DATE OF EXAM: 04/04/2019 COMPARISON: 04/02/2019 HISTORY: Short of breath TECHNIQUE: Single frontal view of the chest is obtained. FINDINGS: Heart and mediastinum are normal. Lungs are clear of infiltrate. There is no heart failure . There are mild emphysematous changes in the upper lobes. There is no pleural effusion. Bony thorax is intact. IMPRESSION: No active cardiopulmonary disease. There is probably COPD. No change.
[2019-04-04 19:59] LABS: Glucose,Whole Blood 131 mg/dL (75-99)
--- NOTE | 2019-04-04 20:57 | PN ---
PROGRESS NOTE DATE OF SERVICE: 04/04/2019 This is a 59-year-old gentleman who was admitted with COPD acute exacerbation, also possible left lower lobe pneumonia. The patient clinically appears to be improving. The patient is started on IV antibiotics now. No chest pain. No palpitations. No fever. EXAM: Alert and oriented x3. Pulse 91, blood pressure 130/60, respirations 17, temperature 98.8, pulse ox 98% on 2 L. After walking the pulse ox drops to 86. HEENT: Conjunctivae normal. Oral mucosa moist. NECK: No jugular venous distention. No lymph node enlargement. CARDIOVASCULAR: S1, S2. RESPIRATORY: Diminished breath sounds at the bases. Bilateral scattered rhonchi and crackles. ABDOMEN: Soft, nontender. LEGS: No swelling. NERVOUS SYSTEM: No focal deficits. LABS: WBC 12, hemoglobin 11.2, sodium 135. ASSESSMENT: 1. Chronic obstructive pulmonary disease acute exacerbation with acute left lower lobe pneumonia with acute hypoxic respiratory present on admission. 2. Possible chronic hypoxic respiratory failure. 3. Hypokalemia. 4. History of nicotine dependence. 5. History of rheumatoid arthritis. 6. History of chronic myeloid leukemia. 7. Depression. 8. Hypernatremia. 9. Increased WBC. 10.History of depression. 11.Schizophrenia. 12.Continued ongoing nicotine dependence. RECOMMENDATIONS AND DISCUSSION: Recommend to continue current management, continue symptomatic treatment, continue with bronchodilators, continue empiric antibiotics. I would also recommend to continue to monitor for oxygen, patient might qualify for home O2 because of the chronic hypoxic respiratory failure, which was demonstrated by pulse ox of 86% on ambulation. Prognosis guarded. Repeat chest x-ray. Possible home within the next 24-48 hours if he continues to improve. MMODL / IJN: [id number] /
[2019-04-05] MEDS: methylPREDNISolone SOD SUCCI 40 MG/ML 1 ML VIAL IV SCH ×2 (00:04→05:52)
[2019-04-05] MEDS: IPRATROPIUM-ALBUTEROL 3 ML NEB INHALATION SCH ×3 (03:54→11:03)
[2019-04-05 04:17] LABS: Mycoplasma IgM Antibody 0.16 INDEX (<=0.90)
[2019-04-05 05:52] VITALS: BP 104/66; TEMP 97.7
[2019-04-05] MEDS: 0.9% NACL WITH KCL 40 MEQ/L 1,000 ML IV SCH (05:53)
[2019-04-05 07:19] LABS: Glucose,Whole Blood 144 mg/dL (75-99)
[2019-04-05] MEDS: BUDESONIDE 1 MG/2 ML NEBU INHALATION SCH (07:35)
[2019-04-05] MEDS: FORMOTEROL FUMARATE 20 MCG/2 ML NEBU INHALATION SCH (07:35)
[2019-04-05 08:00] LABS: Anisocytosis Slight; Basophils % (A) 0 %; Eosinophils % (A) 0 %; HCT 35.3 % (39.0-53.0); HGB 11.8 gm/dL (13.0-17.5); Lymphocytes # (A) 0.8 k/uL (1.0-4.8); Lymphocytes % (A) 6 %; MCH 31.1 pg (25.0-35.0); MCHC 33.5 g/dL (31.0-37.0); Mean Platelet Volume 6.8; Monocytes # (A) 0.4 k/uL (0-1.0); Monocytes % (A) 3 %; Neutrophils # (A) 11.1 k/uL (1.3-7.7); Neutrophils % (A) 89 %; Platelet Count 373 k/uL (150-450); RBC 3.79 m/uL (4.30-5.90); RDW 16.3 % (11.5-15.5); WBC 12.5 k/uL (3.8-10.6)
[2019-04-05] MEDS: INSULIN ASPART (NovoLOG) 100 UNIT/ML VIAL SQ SCH (08:08)
[2019-04-05] MEDS: guaiFENesin 600 MG TABLET.ER PO SCH (08:08)
[2019-04-05] MEDS: PANTOPRAZOLE 40 MG TABLET PO SCH (08:08)
[2019-04-05] MEDS: ENOXAPARIN 40 MG/0.4 ML SYRINGE SQ SCH (08:09)
[2019-04-05] MEDS: buPROPion SR 150 MG TABLET.ER PO SCH (08:09)
[2019-04-05] MEDS: IMATINIB MESYLATE 400 MG PO SCH (08:09)
[2019-04-05] MEDS: SERTRALINE 100 MG TAB PO SCH (08:10)
[2019-04-05] MEDS: NICOTINE 21MG/24HR PATCH TRANSDERM SCH (08:18)
[2019-04-05 08:22] LABS: Anion Gap 3 mmol/L; Blood Urea Nitrogen 19 mg/dL (9-20); Calcium 8.6 mg/dL (8.4-10.2); Carbon Dioxide 35 mmol/L (22-30); Chloride 91 mmol/L (98-107); Glucose 133 mg/dL (74-99); Sodium 129 mmol/L (137-145)
[2019-04-05 10:47] VITALS: RESP 17
[2019-04-05 11:06] LABS: Glucose,Whole Blood 162 mg/dL (75-99)
[2019-04-05 11:39] VITALS: PULSE 92
[2019-04-05] MEDS ORDERED: LEVOFLOXACIN 500 MG TAB PO SCH (13:00)
--- NOTE | 2019-04-05 14:14 | P.PN ---
Subjective Progress Note Date: 04/05/19 Principal diagnosis: Acute hypoxic respiratory failure, acute COPD exacerbation, pulmonary nodules, rheumatoid arthritis, CML, chronic anemia, hypo-magnesium you and hypokalemia 04/05/2019, patient seen and evaluated during the rounds clinically she is doing much better cough congestion improved he wants to quit his smoking he has been smoking free since his been admitted into the hospital, further plan of care has been discussed with the patient will follow-up in the office This is a 59-year-old gentleman who presented emergency department complaining of shortness of breath and wheezing. He states he went to his primary care physician's office and they did a breathing treatment and gave him antibiotics and steroids. He states it did not seem to help him and he was becoming more short of breath. The patient does not wear home oxygen. He states he has been told he has COPD in the past but has never had a pulmonary function test. He was on Ventolin inhaler at home but states he ran out of it. He does have a nebulizer at home that he just got a few days ago. He states he stopped smoking 4 days ago when he started feeling bad. He used to smoke 1-1/2 packs per day since 15 years old. He states that many years ago he was in the hospital and on the ventilator because of a penicillin ALLERGY. The patient currently does not wear he is on disability. However he states that he was exposed to asbestos insulation when he was younger and working. He does have seasonal ALLERGIES as well. He has 1 dog that is mostly outdoor dog. Objective - Vital Signs Vital signs: Vital Signs Temp 97.7 F 04/05/19 05:51 Pulse 92 04/05/19 11:38 Resp 17 04/05/19 07:30 BP 104/66 04/05/19 05:51 Pulse Ox 96 04/05/19 05:51 Intake & Output 04/04/19 04/05/19 04/05/19 18:59 06:59 18:59 Intake Total 1200 1240 Balance 1200 1240 Intake: Intake, IV Titration 400 400 Amount 0.9% NaCl with KCl 40 Meq 400 400 /l 1,000 ml @ 50 mls/hr IV .Q20H RAYMUNDO Rx#: [id number] Oral 800 840 Other: Voiding Method Toilet Toilet Toilet Urinal # Voids 1 - Exam Gen.: Patient is alert and oriented 3, no acute distress Cardiovascular: Regular rate and rhythm, S1/S2 Lungs: Diminished breath sounds bilaterally with scattered expiratory wheezing Abdomen: Soft nontender nondistended positive bowel sounds Extremities: No edema - Labs CBC & Chem 7: 04/05/19 07:39 04/05/19 07:39 Labs: Abnormal Lab Results - Last 24 Hours (Table) 04/03/19 04/04/19 04/04/19 Range/Units 08:21 17:04 19:58 WBC (3.8-10.6) k/uL RBC (4.30-5.90) m/uL Hgb (13.0-17.5) gm/dL Hct (39.0-53.0) % RDW (11.5-15.5) % Neutrophils # (1.3-7.7) k/uL Lymphocytes # (1.0-4.8) k/uL Sodium (137-145) mmol/L Chloride (98-107) mmol/L Carbon Dioxide (22-30) mmol/L Creatinine (0.66-1.25) mg/dL Glucose (74-99) mg/dL POC Glucose (mg/dL) 284 H 131 H (75-99) mg/dL Mycoplasma pneumon IgG 1.18 H (<=0.90) INDEX 04/05/19 04/05/19 04/05/19 Range/Units 07:17 07:39 07:39 WBC 12.5 H (3.8-10.6) k/uL RBC 3.79 L (4.30-5.90) m/uL Hgb 11.8 L (13.0-17.5) gm/dL Hct 35.3 L (39.0-53.0) % RDW 16.3 H (11.5-15.5) % Neutrophils # 11.1 H (1.3-7.7) k/uL Lymphocytes # 0.8 L (1.0-4.8) k/uL Sodium 129 L (137-145) mmol/L Chloride 91 L (98-107) mmol/L Carbon Dioxide 35 H (22-30) mmol/L Creatinine 0.48 L (0.66-1.25) mg/dL Glucose 133 H (74-99) mg/dL POC Glucose (mg/dL) 144 H (75-99) mg/dL Mycoplasma pneumon IgG (<=0.90) INDEX 04/05/19 Range/Units 11:04 WBC (3.8-10.6) k/uL RBC (4.30-5.90) m/uL Hgb (13.0-17.5) gm/dL Hct (39.0-53.0) % RDW (11.5-15.5) % Neutrophils # (1.3-7.7) k/uL Lymphocytes # (1.0-4.8) k/uL Sodium (137-145) mmol/L Chloride (98-107) mmol/L Carbon Dioxide (22-30) mmol/L Creatinine (0.66-1.25) mg/dL Glucose (74-99) mg/dL POC Glucose (mg/dL) 162 H (75-99) mg/dL Mycoplasma pneumon IgG (<=0.90) INDEX Microbiology - Last 24 Hours (Table) 04/02/19 09:20 Blood Culture - Preliminary Blood No Growth after 72 hours 04/03/19 14:50 Gram Stain - Final Sputum Sputum Culture - Final 04/03/19 00:37 Gram Stain - Preliminary Sputum Sputum Culture - Preliminary Streptococcus pneumoniae Assessment and Plan Assessment: Acute hypoxic respiratory failure Acute exacerbation of COPD Purulent tracheobronchitis related to his strep pneumonia repeat his sputum cultures are negative Leukocytosis Pulmonary nodules Elevated IgE at 256 Active tobacco abuse Chronic rheumatoid arthritis, could be contributing to pulmonary nodules Chronic myeloid leukemia Depression Normochromic normocytic anemia Hyponatremia with dehydration Hypokalemia Hypomagnesemia Plan: Overall plan includes Patient will not require home oxygen as saturation is over 93% in addition patient does not want to smoke anymore Continue Pulmicort and Perforomist Continue Duo nebs Singulair Steroid taper can be done as outpatient setting Incentive spirometry and pulmonary hygiene Sputum culture results reviewed Continue Levaquin Replace K and Mg Time with Patient: Greater than 30
--- NOTE | 2019-04-06 06:15 | DS ---
DISCHARGE SUMMARY DATE OF SERVICE: 04/05/2019 FINAL DIAGNOSES: 1. Chronic obstructive pulmonary disease acute exacerbation with acute left lower lobe pneumonia with acute hypoxic respiratory failure, present on admission. 2. Possible chronic hypoxic respiratory failure. 3. Hypokalemia. 4. History of nicotine dependence. 5. History of rheumatoid arthritis. 6. History of chronic myeloid leukemia. 7. Depression. 8. Hyponatremia. 9. Increased WBC. 10.History of depression. 11.History of schizophrenia. 12.Continued ongoing nicotine dependence. DISCHARGE DISPOSITION: The patient will be discharged in stable condition with guarded prognosis. HISTORY OF PRESENT ILLNESS: This 59-year-old gentleman with a past medical history of multiple medical problems was admitted with multiple complex medical issues. Patient treated with antibiotics. Patient improved significantly. On exam, vitals are stable. CARDIOVASCULAR: S1, S2 muffled. RESPIRATORY: A few scattered rhonchi. ABDOMEN: Soft. NERVOUS SYSTEM: No focal deficits. DISCHARGE ADVICE: 1. Diet is cardiac. 2. Activity limited until followup. 3. Follow up with Dr. Manzo in 2 to 3 days. 4. Follow up with Dr. Jacobson in one week. Medications are: 1. Imatinib 400 mg p.o. daily. 2. Lomotil 1 p.o. q. p.r.n. 5 times p.r.n. 3. Zoloft 100 mg p.o. daily. 4. DuoNeb q.8. 5. Habitrol 21 daily. 6. Levaquin 500 mg p.o. daily. 7. Mucinex 1200 mg p.o. b.i.d. 8. Prednisone 40 mg daily for 3 days, 30 for 3 days, 20 for 3 days, and 10 for 3 days. 9. Symbicort 160/4.5 one puff b.i.d. 10.Wellbutrin SR 150 mg p.o. daily. Once again, the patient will be discharged in stable condition with guarded prognosis. MMODL / IJN: [id number] /
== END 2019-04-05 14:50 | disposition home or self-care (01) | DRG 190 ==
LOC: EC 08:51 → 3NMEDONC 11:55
PROVIDERS: ADMIT Hospitalist; ATTEND Hospitalist
DX: J44.1 Chronic obstructive pulmonary disease with (acute) exacerbation (principal); J18.9 Pneumonia, unspecified organism; J96.21 Acute and chronic respiratory failure with hypoxia; C92.10 Chronic myeloid leukemia, BCR/ABL-positive, not having achieved remission; E87.1 Hypo-osmolality and hyponatremia; J44.0 Chronic obstructive pulmonary disease with (acute) lower respiratory infection; J20.9 Acute bronchitis, unspecified; D64.9 Anemia, unspecified; E83.42 Hypomagnesemia; E86.0 Dehydration; E87.6 Hypokalemia; F17.210 Nicotine dependence, cigarettes, uncomplicated; F20.9 Schizophrenia, unspecified; F32.9 Major depressive disorder, single episode, unspecified; J30.2 Other seasonal allergic rhinitis; M06.9 Rheumatoid arthritis, unspecified; Z77.090 Contact with and (suspected) exposure to asbestos; Z79.899 Other long term (current) drug therapy; Z80.6 Family history of leukemia; Z85.828 Personal history of other malignant neoplasm of skin; Z86.010 Personal history of colon polyps; Z88.0 Allergy status to penicillin; Z91.19 Patient's noncompliance with other medical treatment and regimen; Z60.2 Problems related to living alone; Z83.2 Family history of diseases of the blood and blood-forming organs and certain disorders involving the immune mechanism; R91.8 Other nonspecific abnormal finding of lung field
CPT/HCPCS: 36415; 71045; 71046; 71275; 80048; 80051; 80053; 81003; 82103; 82785; 83605; 83735; 83880; 84484; 85025; 85379; 85610; 85730; 86001; 86003; 86606; 86609; 86738; 87040; 87070; 87077; 87186; 87205; 87449; 93005; 94640; 94667; 94760; 96365; 96366; 96368; 96375; 99285

== ENCOUNTER → 2019-09-27 | Outpatient (CLI) | payer MEDICARE, OTHER ==
--- NOTE | 2019-09-27 15:04 | XR ---
EXAMINATION TYPE: XR chest 2V DATE OF EXAM: 09/27/2019 COMPARISON: 04/04/2019 HISTORY: Presurgical evaluation. Tobacco abuse. TECHNIQUE: Frontal and lateral views of the chest are obtained. FINDINGS: There is no focal air space opacity, pleural effusion, or pneumothorax seen. COPD is seen with flattening of the diaphragms laterally and pulmonary hyperinflation. Right apical nodule measure s 4 mm. The cardiac silhouette size is within normal limits. The osseous structures are intact. IMPRESSION: 1. No acute cardiopulmonary process. 2. Radiographic sequela of COPD. 3. 4 mm right apical pulmonary nodule. This could be further evaluated with CT.
== END | disposition home or self-care (01) ==
LOC: RADXRMAIN 14:45
PROVIDERS: ATTEND Pediatrics
DX: Z01.818 Encounter for other preprocedural examination (principal); R91.1 Solitary pulmonary nodule
CPT/HCPCS: 71046

== ENCOUNTER → 2019-10-28 | Outpatient (CLI) | payer MEDICARE, OTHER ==
[2019-10-28 17:16] LABS: African American GFR (CKD) >90 (>60 ml/min/1.73 sqM); Blood Urea Nitrogen 18 mg/dL (9-20); Non-African American GFR(CKD) >90 (>60 ml/min/1.73 sqM)
--- NOTE | 2019-10-28 21:28 | CT ---
EXAMINATION TYPE: CT chest w con DATE OF EXAM: 10/28/2019 COMPARISON: CT chest April 02, [address] January 22, 2018 HISTORY: Solitary pulmonary nodule. Hx leukemia CT DLP: 212.70 mGycm. Automated Exposure Control for Dose Reduction was Utilized. TECHNIQUE: CT scan of the thorax is performed following with IV Contrast, patient injected with 100 mL of Isovue 300. FINDINGS: LUNGS: Background moderate underlying emphysematous change is redemonstrated. There is interval impro vement in nodular infiltrate left midlung and more prominent reticulonodular infiltrates bilateral lo wer lungs. No new or persistent greater than 4 mm parenchymal nodules are present bilaterally. No ple ural effusion or pneumothorax is noted. MEDIASTINUM: There are no new greater than 1 cm hilar or mediastinal lymph nodes. Diminished size to prominent prevascular lymph node on prior study. No cardiomegaly or pericardial effusion is seen. Th ere is fairly diffuse wall thickening of the esophagus most prominent mid to distal aspects. OTHER: Bilateral subareolar gynecomastia is redemonstrated. Stable nearly 2 cm hypodense lesion hepat ic lobe axial image 60. Persistent stable size left adrenal mass axial image 61. IMPRESSION: Moderate emphysematous change with resolved left mid lung and bilateral lower lung infilt rates. No new or persistent suspicious nodules. Moderate to severe diffuse wall thickening mid to dis shari esophagus. Correlate clinically for possible esophagitis. Consider direct visualization as neopla sm though felt less likely is not entirely excluded.
== END | disposition home or self-care (01) ==
LOC: RADCTMAIN 16:15
PROVIDERS: ATTEND Pediatrics
DX: J43.9 Emphysema, unspecified (principal); K22.8 Other specified diseases of esophagus; C95.12 Chronic leukemia of unspecified cell type, in relapse
CPT/HCPCS: 82565; 84520; 71260; 36415; Q9967

== ENCOUNTER 2020-02-08 11:03 | Day surgery (SDC) | payer MEDICARE, OTHER ==
[2020-02-04 10:32] VITALS: BMI 20.7
[~2020-02-08 11:03] MED LIST changes: -Pre Op ABX Message 1 EACH MISC MISCELLANE ONE
[2020-02-08 11:28] VITALS: TEMP 98.3
[2020-02-08] MEDS ORDERED: LIDOCAINE 1% (10MG/ML) FOR IV START INTRADERMA ONE (11:42)
[2020-02-08] MEDS ORDERED: PROPOFOL 10 MG/ML 20 ML VIAL IV ONE (12:02)
[2020-02-08] MEDS ORDERED: MIDAZOLAM 2 MG/2 ML VIAL ONE (12:02)
[2020-02-08] MEDS ORDERED: KETAMINE 10 MG/ML 20 ML VIAL ONE (12:02)
[2020-02-08 12:41] VITALS: BP 126/78; PULSE 77; RESP 18
[2020-02-08 13:46] LABS: Basophils % (A) 0 %; Eosinophils # (A) 0.1 k/uL (0-0.7); Eosinophils % (A) 1 %; HCT 41.2 % (39.0-53.0); HGB 13.8 gm/dL (13.0-17.5); Lymphocytes # (A) 1.3 k/uL (1.0-4.8); Lymphocytes % (A) 19 %; MCH 31.9 pg (25.0-35.0); MCHC 33.5 g/dL (31.0-37.0); MCV 95.3 fL (80.0-100.0); Mean Platelet Volume 7.5; Monocytes # (A) 0.3 k/uL (0-1.0); Monocytes % (A) 4 %; Neutrophils # (A) 5.3 k/uL (1.3-7.7); Neutrophils % (A) 75 %; Platelet Count 379 k/uL (150-450); RBC 4.32 m/uL (4.30-5.90); RDW 15.2 % (11.5-15.5)
[2020-02-08 18:46] LABS: Reticulocyte % 0.89 % (0.10-1.80)
--- NOTE | 2020-02-08 21:49 | OP ---
OPERATIVE REPORT PROCEDURE: Bone marrow aspirate and biopsy. INDICATION: Chronic myelogenous leukemia. The patient lost molecular response and a bone marrow biopsy is done to assess cytogenetic response. DESCRIPTION OF THE PROCEDURE: After obtaining consent from the patient, the procedure was performed in the endoscopy suite under anesthesia performed by the anesthesia team. The patient was put in left lateral decubitus position. The right posterior iliac crest was localized. Skin was cleansed with ChloraPrep. All sterile procedures were followed. Two milliliters of 2% Xylocaine was used for local anesthetic. Then the bone marrow needle was inserted, and 10 mL aspirate and 1.5 cm core biopsy was obtained without any difficulties. Pressure was applied afterwards. There was negligible blood loss. Patient tolerated the procedure very well without any immediate complications. MMODL / IJN: [id number] /
== END 2020-02-08 13:02 | disposition home or self-care (01) ==
LOC: OR 11:03
PROVIDERS: ATTEND Internal Medicine Hematology & Oncology
DX: C92.11 Chronic myeloid leukemia, BCR/ABL-positive, in remission (principal); J43.9 Emphysema, unspecified; K63.5 Polyp of colon; F20.9 Schizophrenia, unspecified; F32.9 Major depressive disorder, single episode, unspecified; J30.1 Allergic rhinitis due to pollen; F17.210 Nicotine dependence, cigarettes, uncomplicated; Z88.0 Allergy status to penicillin; Z79.899 Other long term (current) drug therapy; Z79.51 Long term (current) use of inhaled steroids; Z98.890 Other specified postprocedural states; Z86.19 Personal history of other infectious and parasitic diseases; Z87.19 Personal history of other diseases of the digestive system; Z80.6 Family history of leukemia; Z97.2 Presence of dental prosthetic device (complete) (partial)
CPT/HCPCS: 38222; 85025; 85045; J2250; J2704

== ENCOUNTER 2020-09-06 17:35 | Inpatient (IN) | payer MEDICARE, OTHER ==
--- NOTE | 2020-09-06 17:55 | ED ---
General Adult HPI - General Chief complaint: Psychiatric Symptoms Stated complaint: Mental Health Time Seen by Provider: 09/06/20 17:37 Source: patient, EMS, RN notes reviewed Mode of arrival: EMS Limitations: no limitations - History of Present Illness Initial comments: Patient is a pleasant 60-year-old male presenting to the emergency Department with concerns for depression. Patient states he has been off his medications for months. Patient states he feels paranoid. Patient states he has a difficult time concentrating. Patient does have suicidal thoughts without plan. Patient denies hallucinations. Patient has a history of alcohol and drug use however none in years. No new physical complaints. - Related Data Home Medications Medication Instructions Recorded Confirmed Sertraline HCl [Zoloft] 100 mg PO DAILY 02/02/18 09/06/20 Imatinib Mesylate [Gleevec] 400 mg PO DAILY 02/04/20 09/06/20 Albuterol Sulfate [Ventolin HFA] 1 - 2 puff INHALATION RT-QID PRN 09/06/20 09/06/20 Haloperidol Decanoate [Haldol D] 50 mg IM Q28D 09/06/20 09/06/20 Allergies Allergy/AdvReac Type Severity Reaction Status Date / Time Penicillins Allergy Anaphylaxis Verified 09/06/20 20:01 Review of Systems ROS Statement: Those systems with pertinent positive or pertinent negative responses have been documented in the HPI. ROS Other: All systems not noted in ROS Statement are negative. Constitutional: Denies: fever Eyes: Denies: eye pain ENT: Denies: ear pain Respiratory: Denies: cough Cardiovascular: Denies: chest pain Endocrine: Denies: fatigue Gastrointestinal: Denies: abdominal pain Genitourinary: Denies: dysuria Musculoskeletal: Denies: back pain Skin: Denies: rash Neurological: Denies: weakness Psychiatric: Reports: depression, suicidal thoughts Past Medical History Past Medical History: Cancer, COPD, Rheumatoid Arthritis (RA) Additional Past Medical History / Comment(s): CML-takes oral chemo, skin cancer with removals, benign colon polyps History of Any Multi-Drug Resistant Organisms: None Reported Past Surgical History: Orthopedic Surgery Additional Past Surgical History / Comment(s): Colonoscopy/benign polypectomy, skin cancer removals, L upper leg with kira, Bone marrow bx. Past Anesthesia/Blood Transfusion Reactions: Motion Sickness Past Psychological History: Depression, Schizophrenia Smoking Status: Current every day smoker, Heavy tobacco smoker Past Alcohol Use History: None Reported Past Drug Use History: None Reported - Past Family History Father Family Medical History: Cancer Additional Family Medical History / Comment(s): LEUKEMIA Brother(s) Family Medical History: Deep Vein Thrombosis (DVT) Mother Family Medical History: No Reported History Additional Family Medical History / Comment(s): Mother was healthy. General Exam Limitations: no limitations General appearance: alert, in no apparent distress, other (Disheveled appearance) Head exam: Present: normocephalic Eye exam: Present: normal appearance Neck exam: Present: normal inspection Respiratory exam: Present: normal lung sounds bilaterally Cardiovascular Exam: Present: regular rate, normal rhythm GI/Abdominal exam: Present: soft. Absent: tenderness Extremities exam: Present: normal inspection Neurological exam: Present: alert Psychiatric exam: Present: normal affect, normal mood Skin exam: Present: other (Nicotine stained fingers) Course Vital Signs 09/06/20 09/06/20 09/06/20 17:39 17:40 20:30 Temperature 99.1 F Pulse Rate 75 87 Respiratory 16 16 Rate Blood Pressure 113/80 113/80 98/65 O2 Sat by Pulse 95 95 Oximetry 09/06/20 21:00 Temperature Pulse Rate 99 Respiratory 18 Rate Blood Pressure 103/71 O2 Sat by Pulse 97 Oximetry Medical Decision Making - Medical Decision Making Patient daughter arrived and was more concerned about patient's generalized weakness rather than his mental health and didn't want patient to be checked for possible exacerbation of his CML. Blood work was done. I did attempt to talk to daughter twice however she was not present. Patient was reevaluated and updated. Case was discussed with Dr. Valenzuela, who will admit for hospital call. Case also discussed with Dr. Lovelace who does request 3% sodium 4 25 mL per hour and then recheck and call her back at that time. She also requests urine osmolarity and urine sodium. - Lab Data Result diagrams: 09/06/20 19:58 09/06/20 19:58 Lab Results 09/06/20 09/06/20 09/06/20 Range/Units 19:46 19:51 19:58 WBC 11.8 H (3.8-10.6) k/uL RBC 3.99 L (4.30-5.90) m/uL Hgb 12.9 L (13.0-17.5) gm/dL Hct 37.1 L (39.0-53.0) % MCV 92.9 (80.0-100.0) fL MCH 32.4 (25.0-35.0) pg MCHC 34.8 (31.0-37.0) g/dL RDW 13.7 (11.5-15.5) % Plt Count 225 (150-450) k/uL Neutrophils % 68 % Lymphocytes % 24 % Monocytes % 6 % Eosinophils % 0 % Basophils % 1 % Neutrophils # 8.1 H (1.3-7.7) k/uL Lymphocytes # 2.8 (1.0-4.8) k/uL Monocytes # 0.7 (0-1.0) k/uL Eosinophils # 0.1 (0-0.7) k/uL Basophils # 0.1 (0-0.2) k/uL PT (9.0-12.0) sec INR (<1.2) APTT (22.0-30.0) sec Sodium (137-145) mmol/L Potassium (3.5-5.1) mmol/L Chloride (98-107) mmol/L Carbon Dioxide (22-30) mmol/L Anion Gap mmol/L BUN (9-20) mg/dL Creatinine (0.66-1.25) mg/dL Est GFR (CKD-EPI)AfAm (>60 ml/min/1.73 sqM) Est GFR (CKD-EPI)NonAf (>60 ml/min/1.73 sqM) Glucose (74-99) mg/dL Plasma Lactic Acid Ortiz (0.7-2.0) mmol/L Calcium (8.4-10.2) mg/dL Phosphorus (2.5-4.5) mg/dL Magnesium (1.6-2.3) mg/dL Total Bilirubin (0.2-1.3) mg/dL AST (17-59) U/L ALT (4-49) U/L Alkaline Phosphatase (38-126) U/L Troponin I (0.000-0.034) ng/mL Total Protein (6.3-8.2) g/dL Albumin (3.5-5.0) g/dL Urine Color Yellow Urine Appearance Clear (Clear) Urine pH 6.5 (5.0-8.0) Ur Specific [place] 1.006 (1.001-1.035) Urine Protein Negative (Negative) Urine Glucose (UA) Negative (Negative) Urine Ketones Negative (Negative) Urine Blood Negative (Negative) Urine Nitrite Negative (Negative) Urine Bilirubin Negative (Negative) Urine Urobilinogen <2.0 (<2.0) mg/dL Ur Leukocyte Esterase Negative (Negative) Urine Opiates Screen Not Detected (NotDetected) Ur Oxycodone Screen Not Detected (NotDetected) Urine Methadone Screen Not Detected (NotDetected) Ur Propoxyphene Screen Not Detected (NotDetected) Ur Barbiturates Screen Not Detected (NotDetected) U Tricyclic Antidepress Not Detected (NotDetected) Ur Phencyclidine Scrn Not Detected (NotDetected) Ur Amphetamines Screen Not Detected (NotDetected) U Methamphetamines Scrn Not Detected (NotDetected) U Benzodiazepines Scrn Not Detected (NotDetected) Urine Cocaine Screen Not Detected (NotDetected) U Marijuana (THC) Screen Not Detected (NotDetected) 09/06/20 09/06/20 09/06/20 Range/Units 19:58 19:58 19:58 WBC (3.8-10.6) k/uL RBC (4.30-5.90) m/uL Hgb (13.0-17.5) gm/dL Hct (39.0-53.0) % MCV (80.0-100.0) fL MCH (25.0-35.0) pg MCHC (31.0-37.0) g/dL RDW (11.5-15.5) % Plt Count (150-450) k/uL Neutrophils % % Lymphocytes % % Monocytes % % Eosinophils % % Basophils % % Neutrophils # (1.3-7.7) k/uL Lymphocytes # (1.0-4.8) k/uL Monocytes # (0-1.0) k/uL Eosinophils # (0-0.7) k/uL Basophils # (0-0.2) k/uL PT 10.1 (9.0-12.0) sec INR 1.0 (<1.2) APTT 26.0 (22.0-30.0) sec Sodium 113 L* (137-145) mmol/L Potassium 2.4 L* (3.5-5.1) mmol/L Chloride 67 L* (98-107) mmol/L Carbon Dioxide 39 H (22-30) mmol/L Anion Gap 7 mmol/L BUN 9 (9-20) mg/dL Creatinine 0.58 L (0.66-1.25) mg/dL Est GFR (CKD-EPI)AfAm >90 (>60 ml/min/1.73 sqM) Est GFR (CKD-EPI)NonAf >90 (>60 ml/min/1.73 sqM) Glucose 109 H (74-99) mg/dL Plasma Lactic Acid Ortiz 2.4 H* (0.7-2.0) mmol/L Calcium 8.7 (8.4-10.2) mg/dL Phosphorus 3.3 (2.5-4.5) mg/dL Magnesium 1.4 L (1.6-2.3) mg/dL Total Bilirubin 0.8 (0.2-1.3) mg/dL AST 127 H (17-59) U/L ALT 105 H (4-49) U/L Alkaline Phosphatase 62 (38-126) U/L Troponin I (0.000-0.034) ng/mL Total Protein 5.4 L (6.3-8.2) g/dL Albumin 3.7 (3.5-5.0) g/dL Urine Color Urine Appearance (Clear) Urine pH (5.0-8.0) Ur Specific [place] (1.001-1.035) Urine Protein (Negative) Urine Glucose (UA) (Negative) Urine Ketones (Negative) Urine Blood (Negative) Urine Nitrite (Negative) Urine Bilirubin (Negative) Urine Urobilinogen (<2.0) mg/dL Ur Leukocyte Esterase (Negative) Urine Opiates Screen (NotDetected) Ur Oxycodone Screen (NotDetected) Urine Methadone Screen (NotDetected) Ur Propoxyphene Screen (NotDetected) Ur Barbiturates Screen (NotDetected) U Tricyclic Antidepress (NotDetected) Ur Phencyclidine Scrn (NotDetected) Ur Amphetamines Screen (NotDetected) U Methamphetamines Scrn (NotDetected) U Benzodiazepines Scrn (NotDetected) Urine Cocaine Screen (NotDetected) U Marijuana (THC) Screen (NotDetected) 09/06/20 Range/Units 19:58 WBC (3.8-10.6) k/uL RBC (4.30-5.90) m/uL Hgb (13.0-17.5) gm/dL Hct (39.0-53.0) % MCV (80.0-100.0) fL MCH (25.0-35.0) pg MCHC (31.0-37.0) g/dL RDW (11.5-15.5) % Plt Count (150-450) k/uL Neutrophils % % Lymphocytes % % Monocytes % % Eosinophils % % Basophils % % Neutrophils # (1.3-7.7) k/uL Lymphocytes # (1.0-4.8) k/uL Monocytes # (0-1.0) k/uL Eosinophils # (0-0.7) k/uL Basophils # (0-0.2) k/uL PT (9.0-12.0) sec INR (<1.2) APTT (22.0-30.0) sec Sodium (137-145) mmol/L Potassium (3.5-5.1) mmol/L Chloride (98-107) mmol/L Carbon Dioxide (22-30) mmol/L Anion Gap mmol/L BUN (9-20) mg/dL Creatinine (0.66-1.25) mg/dL Est GFR (CKD-EPI)AfAm (>60 ml/min/1.73 sqM) Est GFR (CKD-EPI)NonAf (>60 ml/min/1.73 sqM) Glucose (74-99) mg/dL Plasma Lactic Acid Ortiz (0.7-2.0) mmol/L Calcium (8.4-10.2) mg/dL Phosphorus (2.5-4.5) mg/dL Magnesium (1.6-2.3) mg/dL Total Bilirubin (0.2-1.3) mg/dL AST (17-59) U/L ALT (4-49) U/L Alkaline Phosphatase (38-126) U/L Troponin I 0.027 (0.000-0.034) ng/mL Total Protein (6.3-8.2) g/dL Albumin (3.5-5.0) g/dL Urine Color Urine Appearance (Clear) Urine pH (5.0-8.0) Ur Specific [place] (1.001-1.035) Urine Protein (Negative) Urine Glucose (UA) (Negative) Urine Ketones (Negative) Urine Blood (Negative) Urine Nitrite (Negative) Urine Bilirubin (Negative) Urine Urobilinogen (<2.0) mg/dL Ur Leukocyte Esterase (Negative) Urine Opiates Screen (NotDetected) Ur Oxycodone Screen (NotDetected) Urine Methadone Screen (NotDetected) Ur Propoxyphene Screen (NotDetected) Ur Barbiturates Screen (NotDetected) U Tricyclic Antidepress (NotDetected) Ur Phencyclidine Scrn (NotDetected) Ur Amphetamines Screen (NotDetected) U Methamphetamines Scrn (NotDetected) U Benzodiazepines Scrn (NotDetected) Urine Cocaine Screen (NotDetected) U Marijuana (THC) Screen (NotDetected) - Radiology Data Radiology results: image reviewed (Chest x-ray shows no acute process) Critical Care Time Critical Care Time: Yes Total Critical Care Time: 31 Disposition Clinical Impression: Hyponatremia, Hypokalemia Disposition: ADMITTED IP TO THIS [facility] Condition: Serious Is patient prescribed a controlled substance at d/c from ED?: No Referrals: None,Stated [Primary Care Provider] - 1-2 days Decision Time: 21:16
[2020-09-06] MEDS ORDERED: SODIUM CHLORIDE 0.9% 1,000 ML IV STA (19:45)
[2020-09-06 20:11] LABS: Basophils # (A) 0.1 k/uL (0-0.2); Basophils % (A) 1 %; Eosinophils # (A) 0.1 k/uL (0-0.7); Eosinophils % (A) 0 %; HCT 37.1 % (39.0-53.0); HGB 12.9 gm/dL (13.0-17.5); Lymphocytes # (A) 2.8 k/uL (1.0-4.8); Lymphocytes % (A) 24 %; MCH 32.4 pg (25.0-35.0); MCHC 34.8 g/dL (31.0-37.0); MCV 92.9 fL (80.0-100.0); Mean Platelet Volume 6.6; Monocytes # (A) 0.7 k/uL (0-1.0); Monocytes % (A) 6 %; Neutrophils # (A) 8.1 k/uL (1.3-7.7); Neutrophils % (A) 68 %; Platelet Count 225 k/uL (150-450); RBC 3.99 m/uL (4.30-5.90); RDW 13.7 % (11.5-15.5); WBC 11.8 k/uL (3.8-10.6)
[2020-09-06 20:11] LABS: Appearance,Urine Clear (Clear); Bilirubin,Urine Negative (Negative); Blood,Urine Negative (Negative); Color,Urine Yellow; Glucose,Urine (UA) Negative (Negative); Ketones,Urine Negative (Negative); Leukocyte Esterase,Urine Negative (Negative); Nitrite,Urine Negative (Negative); PH, Urine 6.5 (5.0-8.0); Protein,Urine Negative (Negative); Specific Gravity,Urine 1.006 (1.001-1.035); Urobilinogen,Urine <2.0 mg/dL (<2.0)
--- NOTE | 2020-09-06 20:16 | XR ---
EXAMINATION TYPE: XR chest 2V DATE OF EXAM: 09/06/2020 COMPARISON: 09/27/2019 HISTORY: Weakness TECHNIQUE: FINDINGS: Heart and mediastinum are normal. Lungs are clear. Diaphragm is normal. Bony thorax appears normal. IMPRESSION: Normal chest. No change.
[2020-09-06 20:21] LABS: Amphetamine Screen,Urine Not Detected (NotDetected); Barbiturate Screen,Urine Not Detected (NotDetected); Benzodiazepines Screen,Urine Not Detected (NotDetected); Cocaine Screen,Urine Not Detected (NotDetected); Methadone Screen, Urine Not Detected (NotDetected); Opiate Screen,Urine Not Detected (NotDetected); Oxycodone Screen, Urine Not Detected (NotDetected); Phencyclidine Screen,Urine Not Detected (NotDetected); Tricyclic Antidepressant,Urine Not Detected (NotDetected); Urn Cannabinoid Scrn Not Detected (NotDetected)
[2020-09-06 20:26] LABS: Prothrombin Time 10.1 sec (9.0-12.0)
[2020-09-06 20:28] LABS: ALT 105 U/L (4-49); AST 127 U/L (17-59); African American GFR (CKD) >90 (>60 ml/min/1.73 sqM); Albumin 3.7 g/dL (3.5-5.0); Alkaline Phosphatase 62 U/L (38-126); Blood Urea Nitrogen 9 mg/dL (9-20); Calcium 8.7 mg/dL (8.4-10.2); Glucose 109 mg/dL (74-99); Magnesium 1.4 mg/dL (1.6-2.3); Non-African American GFR(CKD) >90 (>60 ml/min/1.73 sqM); Phosphorus 3.3 mg/dL (2.5-4.5); Total Bilirubin 0.8 mg/dL (0.2-1.3); Total Protein 5.4 g/dL (6.3-8.2)
[2020-09-06 20:34] LABS: Anion Gap 7 mmol/L; Carbon Dioxide 39 mmol/L (22-30)
[2020-09-06 20:46] LABS: Sodium 113 mmol/L (137-145)
[2020-09-06 20:47] LABS: Chloride 67 mmol/L (98-107); Potassium 2.4 mmol/L (3.5-5.1)
[2020-09-06] MEDS ORDERED: Potassium Replacement Protocol 1 EACH MISC MISCELLANE PRN (21:16)
[2020-09-06] MEDS ORDERED: POTASSIUM CHLORIDE 20 MEQ in WATER FOR INJECTION 1 100ML.BAG IVPB STA (21:17)
[2020-09-06] MEDS ORDERED: POTASSIUM CHLORIDE ER 20 MEQ TAB.ER PO STA (21:17)
[2020-09-06] MEDS ORDERED: MAGNESIUM OXIDE 400 MG TAB PO STA (21:17)
[2020-09-06] MEDS ORDERED: ALPRAZolam 0.25 MG TAB PO PRN (21:20)
[2020-09-06] MEDS ORDERED: NALOXONE 0.4 MG/ML 1 ML VIAL IV PRN (21:20)
[2020-09-06] MEDS ORDERED: SODIUM CHLORIDE 3%(HYPERTONIC) 500 ML IV SCH (22:00)
[2020-09-06 22:45] LABS: Glucose,Whole Blood 159 mg/dL (75-99)
[2020-09-07 02:57] LABS: African American GFR (CKD) >90 (>60 ml/min/1.73 sqM); Anion Gap 3 mmol/L; Blood Urea Nitrogen 8 mg/dL (9-20); Calcium 8.3 mg/dL (8.4-10.2); Carbon Dioxide 37 mmol/L (22-30); Chloride 77 mmol/L (98-107); Glucose 104 mg/dL (74-99); Non-African American GFR(CKD) >90 (>60 ml/min/1.73 sqM)
[2020-09-07 03:06] LABS: Sodium 117 mmol/L (137-145)
[2020-09-07 03:07] LABS: Potassium 2.6 mmol/L (3.5-5.1)
[2020-09-07] MEDS: POTASSIUM CHLORIDE 20 MEQ in WATER FOR INJECTION 1 100ML.BAG IVPB SCH ×2 (03:26→05:53)
[2020-09-07] MEDS: POTASSIUM CHLORIDE ER 20 MEQ TAB.ER PO SCH ×7 (03:28→22:08)
[2020-09-07 05:27] LABS: HCT 34.3 % (39.0-53.0); HGB 12.1 gm/dL (13.0-17.5); MCH 33.3 pg (25.0-35.0); MCHC 35.3 g/dL (31.0-37.0); MCV 94.4 fL (80.0-100.0); Mean Platelet Volume 7.2; Platelet Count 182 k/uL (150-450); RBC 3.63 m/uL (4.30-5.90); RDW 13.8 % (11.5-15.5); WBC 10.3 k/uL (3.8-10.6)
--- NOTE | 2020-09-07 08:58 | P.HPIM ---
History of Present Illness This is a pleasant 60 years old male with past medical history of chronic myelogenous leukemia, status post bone marrow biopsy on 01/2020. He follows up with his psychiatrist at [facility]. He used to see Dr. Manzo but he stopped b ecause he did not like him. He does not have a PCP and he follow-up with Dr. Mendoza for his leukemia.patient came to the hospital because he feels depressed and he cannot function for a while, he cannot take care of himself, he cannot leave the house especially he lives by himself and the daughter wants him to to go facility so he can get better care. patient denies specific suicidal attempts however he states that "I want GOD to take me" he also complains of some headache about 8/10 with generalized weakness. he denies drinking plenty fluid. However he has 1-2 loose bowel movement since he started taking his chemotherapy imatinib for his CML he denies chest pain or dyspnea. He has occasional covering He smokes about 1 pack per day and he consult and he does not want nicotine patch. He denies alcohol or illicit drugs No nausea vomiting, no change in his urine habits. No fever In the emergency room patient was found to be hyponatremic Sodium is 117, potassium is 2.6, creatinine normal 0.5, lactic acid is elevated at 2.4, back to normal at 1.5. WBC is 10.3 K, hemoglobin 12.2. Chest x-ray: No acute process by radiologist. The emergency team were consulted as per ED attending note ( Case also discussed with Dr. Lovelace who does request 3% sodium 4 25 mL per hour and then recheck and call her back ). Currently hypertonic saline 3% is discontinued And patient is on normal saline at 130 milliliter/hour Review of Systems CONSTITUTIONAL: No fever, no malaise, no fatigue. HEENT: No recent visual problems or hearing problems. Denied any sore throat. CARDIOVASCULAR: No orthopnea, PND, no palpitations, no syncope. PULMONARY: No shortness of breath, no cough, no hemoptysis. GASTROINTESTINAL: No diarrhea, no nausea, no vomiting, no abdominal pain. Normoactive bowel sounds. NEUROLOGICAL: No headaches, no weakness, no numbness. HEMATOLOGICAL: Denies any bleeding or petechiae. GENITOURINARY: Denies any burning micturition, frequency, or urgency. MUSCULOSKELETAL/RHEUMATOLOGICAL: Denies any joint pain, swelling, or any muscle pain. ENDOCRINE: Denies any polyuria or polydipsia. Past Medical History Past Medical History: Cancer, COPD, Rheumatoid Arthritis (RA) Additional Past Medical History / Comment(s): CML-takes oral chemo, skin cancer with removals, benign colon polyps, closed head injury History of Any Multi-Drug Resistant Organisms: None Reported Past Surgical History: Orthopedic Surgery Additional Past Surgical History / Comment(s): Colonoscopy/benign polypectomy, skin cancer removals, L upper leg with kira, Bone marrow bx. Past Anesthesia/Blood Transfusion Reactions: Motion Sickness Past Psychological History: Depression, Schizophrenia Additional Psychological History / Comment(s): Pt resides alone. He has a nebulizer. He uses no assistive devices. He drives. He is medically disabled. Smoking Status: Current every day smoker, Heavy tobacco smoker Past Alcohol Use History: None Reported Additional Past Alcohol Use History / Comment(s): Pt started smoking in 1976. Smokes 1 ppd. Past Drug Use History: None Reported Additional Drug Use History / Comment(s): - MARIJUANA - A TEEN - Past Family History Father Family Medical History: Cancer Additional Family Medical History / Comment(s): LEUKEMIA Brother(s) Family Medical History: Deep Vein Thrombosis (DVT) Mother Family Medical History: No Reported History Additional Family Medical History / Comment(s): Mother was healthy. Medications and Allergies Home Medications Medication Instructions Recorded Confirmed Type Sertraline HCl [Zoloft] 100 mg PO DAILY 02/02/18 09/06/20 History Imatinib Mesylate [Gleevec] 400 mg PO DAILY 02/04/20 09/06/20 History Albuterol Sulfate [Ventolin HFA] 1 - 2 puff INHALATION RT-QID PRN 09/06/20 09/06/20 History Haloperidol Decanoate [Haldol D] 50 mg IM Q28D 09/06/20 09/06/20 History Allergies Allergy/AdvReac Type Severity Reaction Status Date / Time Penicillins Allergy Anaphylaxis Verified 09/06/20 20:01 Physical Exam Vitals: Vital Signs Temp Pulse Resp BP BP Pulse Ox 09/07/20 07:00 79 17 93/63 98 09/07/20 06:30 63 93/63 97 09/07/20 06:00 78 16 114/68 94 L 09/07/20 05:30 64 13 114/68 09/07/20 05:00 64 11 L 96/65 95 09/07/20 04:30 65 10 L 96/65 09/07/20 04:00 97.8 F 69 12 101/65 92 L 09/07/20 03:30 80 11 L 101/65 94 L 09/07/20 03:00 68 11 L 89 L 09/07/20 02:30 65 8 L 106/85 93 L 09/07/20 02:00 82 12 103/62 09/07/20 01:30 68 12 103/62 09/07/20 01:00 70 11 L 102/56 09/07/20 00:30 72 17 102/56 09/07/20 00:02 66 14 102/56 09/07/20 00:00 97.9 F 68 16 129/78 09/06/20 22:30 68 15 137/80 94 L 09/06/20 21:35 98.2 F 82 16 136/90 97 09/06/20 21:32 97.9 F 12 126/78 98 09/06/20 21:00 99 18 103/71 97 09/06/20 20:30 87 16 98/65 95 09/06/20 17:40 99.1 F 75 16 113/80 95 09/06/20 17:39 113/80 Intake and Output 09/06/20 09/07/20 09/07/20 22:59 06:59 14:59 Intake Total 475 25 Output Total 300 0 Balance 175 25 Intake: IV 375 25 Potassium Chloride 20 meq 200 In Water For Injection 1 100ml.bag @ 50 mls/hr IVPB ONCE STA Rx#: [id number] Sodium Chloride 3%( 175 25 Hypertonic) 500 ml @ 25 mls/hr IV .Q20H [facility] Rx#: [id number] Oral 100 Output: Urine 300 0 Other: Voiding Method Urinal # Voids 0 0 Weight 69.853 kg 65.3 kg GENERAL: The patient is alert and oriented x3, not in any acute distress. Well developed, well nourished. HEENT: Pupils are round and equally reacting to light. EOMI. No scleral icterus. No conjunctival pallor. Normocephalic, atraumatic. No pharyngeal erythema. No thyromegaly. CARDIOVASCULAR: S1 and S2 present. No murmurs, rubs, or gallops. PULMONARY: Chest is clear to auscultation, no wheezing or crackles. ABDOMEN: Soft, nontender, nondistended, normoactive bowel sounds. No palpable organomegaly. MUSCULOSKELETAL: No joint swelling or deformity. EXTREMITIES: No cyanosis, clubbing, or pedal edema. NEUROLOGICAL: Gross neurological examination did not reveal any focal deficits. SKIN: No rashes. no petechiae. Results CBC & Chem 7: 09/07/20 02:26 09/07/20 02:26 Labs: Abnormal Lab Results - Last 24 Hours (Table) 09/06/20 09/06/20 09/06/20 Range/Units 19:58 19:58 19:58 WBC 11.8 H (3.8-10.6) k/uL RBC 3.99 L (4.30-5.90) m/uL Hgb 12.9 L (13.0-17.5) gm/dL Hct 37.1 L (39.0-53.0) % Neutrophils # 8.1 H (1.3-7.7) k/uL Sodium 113 L* (137-145) mmol/L Potassium 2.4 L* (3.5-5.1) mmol/L Chloride 67 L* (98-107) mmol/L Carbon Dioxide 39 H (22-30) mmol/L BUN (9-20) mg/dL Creatinine 0.58 L (0.66-1.25) mg/dL Glucose 109 H (74-99) mg/dL POC Glucose (mg/dL) (75-99) mg/dL Plasma Lactic Acid Ortiz 2.4 H* (0.7-2.0) mmol/L Calcium (8.4-10.2) mg/dL Magnesium 1.4 L (1.6-2.3) mg/dL AST 127 H (17-59) U/L ALT 105 H (4-49) U/L Total Protein 5.4 L (6.3-8.2) g/dL 09/06/20 09/06/20 09/07/20 Range/Units 22:44 23:00 02:26 WBC (3.8-10.6) k/uL RBC (4.30-5.90) m/uL Hgb (13.0-17.5) gm/dL Hct (39.0-53.0) % Neutrophils # (1.3-7.7) k/uL Sodium 117 L* (137-145) mmol/L Potassium 2.6 L* (3.5-5.1) mmol/L Chloride 77 L (98-107) mmol/L Carbon Dioxide 37 H (22-30) mmol/L BUN 8 L (9-20) mg/dL Creatinine 0.56 L (0.66-1.25) mg/dL Glucose 104 H (74-99) mg/dL POC Glucose (mg/dL) 159 H (75-99) mg/dL Plasma Lactic Acid Ortiz 2.4 H* (0.7-2.0) mmol/L Calcium 8.3 L (8.4-10.2) mg/dL Magnesium (1.6-2.3) mg/dL AST (17-59) U/L ALT (4-49) U/L Total Protein (6.3-8.2) g/dL 09/07/20 Range/Units 02:26 WBC (3.8-10.6) k/uL RBC 3.63 L (4.30-5.90) m/uL Hgb 12.1 L (13.0-17.5) gm/dL Hct 34.3 L (39.0-53.0) % Neutrophils # (1.3-7.7) k/uL Sodium (137-145) mmol/L Potassium (3.5-5.1) mmol/L Chloride (98-107) mmol/L Carbon Dioxide (22-30) mmol/L BUN (9-20) mg/dL Creatinine (0.66-1.25) mg/dL Glucose (74-99) mg/dL POC Glucose (mg/dL) (75-99) mg/dL Plasma Lactic Acid Ortiz (0.7-2.0) mmol/L Calcium (8.4-10.2) mg/dL Magnesium (1.6-2.3) mg/dL AST (17-59) U/L ALT (4-49) U/L Total Protein (6.3-8.2) g/dL Thrombosis Risk Factor Assmnt - Choose All That Apply Any of the Below Risk Factors Present?: Yes Each Factor Represents 1 point: Abnormal pulmonary function (COPD), Age 41-60 years Other Risk Factors: No Other congenital or acquired thrombophilia - If yes, enter type in comment: No Thrombosis Risk Factor Assessment Total Risk Factor Score: 2 Thrombosis Risk Factor Assessment Level: Low Risk Assessment and Plan Assessment: Severe hyponatremia on admission. Most likely SIADH , which could be secondary to Zoloft Depression and suicidal ideation Elevated lactic acid, came back to normal Hypokalemia Chronic myelogenous leukemia and he follows with oncologist as an outpatient nicotine dependence Plan: This is a pleasant 6 years old male who presents with depression, as I and hyponatremia. Patient was admitted to the ICU with close monitoring of sodium, nephrology team were consulted for hyponatremia and we will follow their recommendation. Continue with IV fluid as per nephrology team recommendation. monitor sodium closely. Also pulmonary/critical care consult. Patient was placed on suicidal precautions and with psychiatric consult consult social workerfor placement Labs and medication were reviewed.. Continue same treatment. Continue with symptomatic treatment. Resume home medication. Monitor lytes and vitals. DVT and GI prophylaxis. Further recommendationsas per clinical course of the patient DVT prophylaxis: Subcutaneous heparin GI Prophylaxis: Pepcid PT/OT: Pending Prognosis is guarded
[2020-09-07] MEDS ORDERED: FAMOTIDINE 20 MG/2 ML VIAL IV SCH (09:00)
[2020-09-07 09:22] LABS: Potassium 3.2 mmol/L (3.5-5.1)
[2020-09-07] MEDS: HEPARIN SODIUM,PORCINE 5,000 UNIT/ML 1 ML VIAL SQ SCH ×2 (12:09→21:11)
[2020-09-07] MEDS: SODIUM CHLORIDE TAB 1 GM TAB PO SCH ×3 (13:56→22:08)
--- NOTE | 2020-09-07 13:58 | P.CN ---
Psychiatric Consult - . Consult date: 09/07/20 Consult:: IDENTIFYING DATA: This patient is a 60-year-old male significant history of chronic myelogenous leukemia currently being treated for hyponatremia. HISTORY OF PRESENT ILLNESS: The patient presented to the hospital on 09/06/2020 and was brought to the emergency department by EMS after expressing significant depression and paranoia to his sister. Patient reports that he has been off his medications for months. He states that he has been feeling increasingly depressed with symptoms of low motivation, low appetite, low self-esteem, low energy, poor sleep, and suicidal ideation. He does report prior attempts at suicide with the last being when he was 18 years old when he attempts to drive off a gemini. He states that he does not have any active desire to commit suicide but is hoping that "God would just take me." He reports numerous stressors in his life as reasons for his depression including losing multiple family members as well as reminiscing about his divorce from his back in 1988. Patient is open to [facility] in [place] and reports that he has been off his medications for months. In regards to manic symptoms, the patient reports a period of time where he was 3-4 days without any sleep. He reports feeling high energy and extremely happy at the time. He states that this last occurred in the early . In regards to psychotic symptoms, the patient is not endorsing any auditory or visual hallucinations at this time. He is not reporting any delusions. He was noted in the emergency department to endorse some paranoia but is denying any paranoia at this time. In regards to substance use, the patient smokes one pack per day of tobacco. He denies any alcohol use. He reports occasional marijuana use. He denies any illicit drug use. PAST PSYCHIATRIC HISTORY: Patient has a a history of major depressive disorder, schizophrenia, bipolar disorder. He is only able to recall being on Zoloft and Haldol. He reports that he has been receiving monthly injections of Haldol Decanoate with the last one being a few months ago. He reports 2-3 psychiatric inpatient admissions which she states have been for depression with suicidal ideation. He is currently open with [facility] in [place]. He reports one prior suicide attempt in the past. PAST MEDICAL HISTORY: COPD, rheumatoid arthritis, CML. ALLERGIES: as per EMR. CHEMICAL DEPENDENCY HISTORY: as per HPI. FAMILY PSYCHIATRIC/SUBSTANCE USE HISTORY: Patient denies any psychiatric family history. SOCIAL HISTORY: Patient was born and raised in [place], [place]. He currently lives in [place], [place] by himself. He receives Social Security disability. He was a member of [employer]. He reports his father and brother were journeyman freeman's. He states he is the sixth child of 9. He has one biological daughter who is 34 years old whom he is close to. MENTAL STATUS EXAM: General Appearance: Patient appears to be stated age is alert, pleasant, and cooperative. Patient appears to have poor hygiene and grooming wearing hospital gown with intermittent eye contact. Behavior: Patient is lying in bed, psychomotor activity appears slightly elevated. Speech: Patient's speech is fluent and nonpressured. Mood/Affect: Patient reports their mood is "depressed", affect is congruent, sad Suicidality/Homicidality: Patient reports suicidal ideation but denies any homicidal ideation, intention, and/or plan. Perceptions: Patient denies any visual hallucinations and denies any auditory hallucinations Though content/process: There is no evidence of any delusional thought content and thought process is linear and goal-directed. Memory and concentration: AOX3, grossly intact for the purposes of this session. Can spell "WORLD" backwards Judgment and insight: Fair IMPRESSIONS: Major depressive disorder, recurrent Tobacco use Rule out schizophrenia PLAN: -At this time patient DOES meet criteria for inpatient psychiatric admission. -Delirium precautions recommended with patient including - avoiding use of narcotics and SPECIFICATIONS WRITER sedatives, limit anticholinergic medications when possible, frequent re-orientation, minimize use of restraints, open window shades during the day and close them at night -Would recommend the following medication changes/additions: We will hold Zoloft at this time as the patient has significant hyponatremia. We will hold Haldol at this time until we confirm with [facility] patient's home medication regimen. -Continue 1:1 sitter for safety -Cannot leave AMA at this time. Patient will need a petition and certification if attempting to leave AMA. -When medically stable, patient is eligible for transfer to a psych bed when available. -Psychiatry will sign off at this point, please contact with any questions. 09/07/20 13:49
--- NOTE | 2020-09-07 14:56 | P.CNPUL ---
History of Present Illness Consult date: 09/07/20 Requesting physician: Don Chung Reason for consult: other (Hyponatremia) Chief complaint: Feeling depressed. History of present illness: This is a 60-year-old white male with history of multiple medical problems including chronic myelogenous leukemia, on maintenance chemotherapy, presently in remission. Patient is also known to have history of COPD, rheumatoid arthritis, and history of depression. Patient came into the ER yesterday complaining of feeling depressed, however he had no suicidal ideations, and had no homicidal thoughts. In the ER, workup included a complete metabolic profile, and the patient was noted to have a low-sodium. His sodium was as low as 113. Patient denies any history of hyponatremia. Denies any history of bronchogenic carcinoma. Patient is a smoker, and has known history of COPD. Patient denies any history of alcohol abuse. However has been complaining of chronic diarrhea. Denies any nausea or vomiting. Denies any abdominal pain. Patient has multiple loose bowel movements on a daily basis. At any rate considering his low-sodium, patient was admitted, placed on 3% saline, I was asked to see him on consultation in the ICU. Follow-up sodium this morning is 122, correcting on the average of less than 1 mEq per hour. Hence his 3% saline was discontinued. And the patient will be switched to 0.9 normal saline. His other labs were also abnormal including a low potassium of 2.6, he had a normal cortisol level and normal thyroid profile. Review of Systems CONSTITUTIONAL: Generalized weakness fatigue malaise. Denies any significant weight loss. HEENT: Negative. CARDIOVASCULAR: He didn't. PULMONARY: Negative. GASTROINTESTINAL: As noted in HPI. Mostly diarrhea. NEUROLOGICAL: Negative. HEMATOLOGICAL: No clotting bleeding or bruising. GENITOURINARY: No dysuria hematuria frequency or urgency. MUSCULOSKELETAL/RHEUMATOLOGICAL: Vague aches and pains. ENDOCRINE: No heat or cold intolerance. Psychiatric: As noted in HPI. Skin: Negative. Past Medical History Past Medical History: Cancer, COPD, Rheumatoid Arthritis (RA) Additional Past Medical History / Comment(s): CML-takes oral chemo, skin cancer with removals, benign colon polyps, closed head injury History of Any Multi-Drug Resistant Organisms: None Reported Past Surgical History: Orthopedic Surgery Additional Past Surgical History / Comment(s): Colonoscopy/benign polypectomy, skin cancer removals, L upper leg with kira, Bone marrow bx. Past Anesthesia/Blood Transfusion Reactions: Motion Sickness Past Psychological History: Depression, Schizophrenia Additional Psychological History / Comment(s): Pt resides alone. He has a ne bulizer. He uses no assistive devices. He drives. He is medically disabled. Smoking Status: Current every day smoker, Heavy tobacco smoker Past Alcohol Use History: None Reported Additional Past Alcohol Use History / Comment(s): Pt started smoking in 1976. Smokes 1 ppd. Past Drug Use History: None Reported Additional Drug Use History / Comment(s): - MARIJUANA - A TEEN - Past Family History Father Family Medical History: Cancer Additional Family Medical History / Comment(s): LEUKEMIA Brother(s) Family Medical History: Deep Vein Thrombosis (DVT) Mother Family Medical History: No Reported History Additional Family Medical History / Comment(s): Mother was healthy. Medications and Allergies Home Medications Medication Instructions Recorded Confirmed Type Sertraline HCl [Zoloft] 100 mg PO DAILY 02/02/18 09/06/20 History Imatinib Mesylate [Gleevec] 400 mg PO DAILY 02/04/20 09/06/20 History Albuterol Sulfate [Ventolin HFA] 1 - 2 puff INHALATION RT-QID PRN 09/06/20 09/06/20 History Haloperidol Decanoate [Haldol D] 50 mg IM Q28D 09/06/20 09/06/20 History Allergies Allergy/AdvReac Type Severity Reaction Status Date / Time Penicillins Allergy Anaphylaxis Verified 09/06/20 20:01 Physical Exam Vitals: Vital Signs Temp Pulse Resp BP BP Pulse Ox 09/07/20 10:00 70 12 107/73 92 L 09/07/20 09:00 71 14 96/72 95 09/07/20 08:00 98.4 F 73 12 108/68 96 09/07/20 07:00 79 17 93/63 98 09/07/20 06:30 63 93/63 97 09/07/20 06:00 78 16 114/68 94 L 09/07/20 05:30 64 13 114/68 09/07/20 05:00 64 11 L 96/65 95 09/07/20 04:30 65 10 L 96/65 09/07/20 04:00 97.8 F 69 12 101/65 92 L 09/07/20 03:30 80 11 L 101/65 94 L 09/07/20 03:00 68 11 L 89 L 09/07/20 02:30 65 8 L 106/85 93 L 09/07/20 02:00 82 12 103/62 09/07/20 01:30 68 12 103/62 09/07/20 01:00 70 11 L 102/56 09/07/20 00:30 72 17 102/56 09/07/20 00:02 66 14 102/56 09/07/20 00:00 97.9 F 68 16 129/78 09/06/20 22:30 68 15 137/80 94 L 09/06/20 21:35 98.2 F 82 16 136/90 97 09/06/20 21:32 97.9 F 12 126/78 98 09/06/20 21:00 99 18 103/71 97 09/06/20 20:30 87 16 98/65 95 09/06/20 17:40 99.1 F 75 16 113/80 95 09/06/20 17:39 113/80 Intake and Output 09/06/20 09/07/20 09/07/20 22:59 06:59 14:59 Intake Total 475 350 Output Total 300 475 Balance 175 -125 Intake: IV 375 50 Potassium Chloride 20 meq 200 In Water For Injection 1 100ml.bag @ 50 mls/hr IVPB ONCE STA Rx#: [id number] Sodium Chloride 3%( 175 50 Hypertonic) 500 ml @ 25 mls/hr IV .Q20H [facility] Rx#: [id number] Oral 100 300 Output: Urine 300 475 Other: Voiding Method Urinal Urinal # Voids 0 0 Weight 69.853 kg 65.3 kg Physical Exam: Revealed a 60-year-old white male, frail looking, cachectic, in no distress. Head: Atraumatic, normocephalic. HEENT:[Neck is supple.] [No neck masses.] [No thyromegaly.] [No JVD.] PERRLA, EOMI, no icterus. Chest: [Symmetrical chest expansion. Clear throughout, no crackles, no rhonchi, no wheezes.] Cardiac Exam: [Normal S1 and S2, no S3 gallop, no murmur.] Abdomen: [Soft, nontender, no megaly, no rebound, no guarding, normal bowel so unds.] Extremities: [No clubbing, no edema, no cyanosis.] Good pulses bilaterally. Neurological Exam: [No focal neurologic deficit.] Alert oriented 3. Psychiatric: Depressed mood, blunt affect, normal mental status otherwise. Skin: No rashes. Lymphatics: No adenopathy. Results - Laboratory Findings CBC and BMP: 09/07/20 02:26 09/07/20 08:28 PT/INR, D-dimer PT 10.1 sec (9.0-12.0) 09/06/20 19:58 INR 1.0 (<1.2) 09/06/20 19:58 Abnormal lab findings: Abnormal Labs 09/06/20 09/06/20 09/06/20 19:58 19:58 19:58 WBC 11.8 H RBC 3.99 L Hgb 12.9 L Hct 37.1 L Neutrophils # 8.1 H Sodium 113 L* Potassium 2.4 L* Chloride 67 L* Carbon Dioxide 39 H BUN Creatinine 0.58 L Glucose 109 H POC Glucose (mg/dL) Plasma Lactic Acid Ortiz 2.4 H* Calcium Magnesium 1.4 L AST 127 H ALT 105 H Total Protein 5.4 L 09/06/20 09/06/20 09/07/20 22:44 23:00 02:26 WBC RBC Hgb Hct Neutrophils # Sodium 117 L* Potassium 2.6 L* Chloride 77 L Carbon Dioxide 37 H BUN 8 L Creatinine 0.56 L Glucose 104 H POC Glucose (mg/dL) 159 H Plasma Lactic Acid Ortiz 2.4 H* Calcium 8.3 L Magnesium AST ALT Total Protein 09/07/20 09/07/20 02:26 08:28 WBC RBC 3.63 L Hgb 12.1 L Hct 34.3 L Neutrophils # Sodium 122 L Potassium 3.2 L Chloride Carbon Dioxide BUN Creatinine Glucose POC Glucose (mg/dL) Plasma Lactic Acid Ortiz Calcium Magnesium AST ALT Total Protein - Diagnostic Findings Chest x-ray: image reviewed (Chest x-ray consistent with COPD otherwise unremarkable.) Assessment and Plan Assessment: Impression: Acute hyponatremia, exact etiology is not clear, I believe it is hypovolemic in nature especially with his history of diarrhea. Although the possibility of hyponatremia secondary to Zoloft or secondary to SIADH is not entirely ruled out. But felt to be less likely based on the clinical history. I believe this is mostly hypovolemic hyponatremia. Patient is being followed by nephrology is addressing his hyponatremia. History of chronic myelogenous leukemia, maintained on chemotherapy. History of COPD, relatively asymptomatic. History of depression, patient is depressed but he denies any suicidal or yohana icidal thoughts, best to be seen and evaluated fully by psychiatry. Hypokalemia also felt to be hypovolemic in nature. Recommendation: Continue present supportive care measures. Switch 3% saline 2.9 normal saline at a very slow rate. Psychiatric consultation. Consider transfer out of the ICU today. Continue GI and DVT prophylaxis. Consider GI consultation for chronic diarrhea. We'll continue to follow. Time with Patient: Greater than 30
[2020-09-07 15:00] LABS: Magnesium 1.5 mg/dL (1.6-2.3)
--- NOTE | 2020-09-07 16:49 | CONS ---
CONSULTATION REASON FOR CONSULT: Hyponatremia. HISTORY OF PRESENT ILLNESS: Patient is a 60-year-old male who was brought in by his daughter with mental status changes, increased fatigue. Apparently, patient has been depressed and started Zoloft. I am not sure if this was a new medication or an increase in the dose of his previous medication. He stated that he has had low sodium levels previously. Patient denies any diarrhea, nausea, or vomiting. He may have been drinking large amounts of water, but he is a poor historian. Serum sodium was 113 on initial admission. Patient was started on 3% saline as there was suspicion for mental status changes and his serum sodium this morning was 122 and the 3% saline is discontinued. Urine osmolality was sent out and it was 180. Random urine sodium is less than 10. The patient's blood pressure is around 100 or 93 mmHg systolic. He is not on any thiazide diuretics at home. PAST MEDICAL HISTORY: Significant for rheumatoid arthritis, COPD, history of CML, maintained on oral chemo, history of colon polyps, closed-head injury, depression, schizophrenia. PAST SURGICAL HISTORY: Colonoscopy, polypectomy, skin cancer surgery, bone marrow biopsy. SOCIAL HISTORY: Patient is a current smoker. No history of alcohol abuse. He does use marijuana. He did use marijuana as a teenager. MEDICATIONS: Prior to admission include Zoloft, Clevex, Haldol, Ventolin inhaler. ALLERGIES: Include PENICILLIN, which causes anaphylaxis. REVIEW OF SYSTEMS: As per HPI. Other systems negative. PHYSICAL EXAMINATION: Patient is comfortable, awake. He is not in any acute distress. He is agitated from many people asking multiple questions. He seems to be answering questions appropriately. Blood pressure this morning 96/72, heart rate 71 per minute, he is afebrile. Examination of the heart S1, S2. Examination of the lungs, bilateral breath sounds are heard. Abdomen is soft, nontender. Examination of the lower extremities shows no evidence of edema. PUBLIC RELATIONS PLAYER exam is grossly intact. LABS: Show sodium 122, potassium 3.2, BUN 8, serum creatinine 0.56. Lactic acid was 2.4. ASSESSMENT: 1. Hyponatremia appears to be hypovolemic. The patient is status post 3% saline initially secondary to mental status changes. His serum sodium are up to 122. I will discontinue the 3% saline and I will add sodium chloride tabs. His urine osmolality is low and appears to be hypovolemic hyponatremia which should improve with saline. 2. Hypokalemia associated with decreased oral intake. Will replace. 3. Lactic acidosis, possibly related to some degree of hypoperfusion and use of beta agonists at home prior to admission for nebulizer. 4. History of depression and schizophrenia. PLAN: Continue potassium replacement, DC 3% saline, add sodium chloride tabs. Increase oral intake. Repeat sodium this evening. Thank you for this consultation. Will continue to follow the patient with you during his hospitalization. MMROSINAL / IJN: [id number] /
[2020-09-07] MEDS ORDERED: Magnesium Replacement Protocol 1 EACH MISC MISCELLANE PRN (16:55)
[2020-09-07] MEDS: MAGNESIUM SULFATE-D5W PMX 1 GM in DEXTROSE/WATER 1 100ML.BAG IVPB SCH ×2 (17:35→19:14)
[2020-09-07 18:57] LABS: Potassium 3.5 mmol/L (3.5-5.1)
[2020-09-07] MEDS ORDERED: Potassium Replacement Protocol 1 EACH MISC MISCELLANE PRN (20:37)
[2020-09-07] MEDS: FAMOTIDINE 20 MG TAB PO SCH (21:11)
[2020-09-08] MEDS ORDERED: Potassium Replacement Protocol 1 EACH MISC MISCELLANE PRN (00:18)
[2020-09-08] MEDS ORDERED: POTASSIUM CHLORIDE ER 20 MEQ TAB.ER PO SCH (01:00)
[2020-09-08 06:11] LABS: HCT 38.2 % (39.0-53.0); HGB 12.4 gm/dL (13.0-17.5); MCH 31.5 pg (25.0-35.0); MCHC 32.4 g/dL (31.0-37.0); MCV 97.3 fL (80.0-100.0); Mean Platelet Volume 6.9; Platelet Count 168 k/uL (150-450); RBC 3.92 m/uL (4.30-5.90); RDW 14.5 % (11.5-15.5); WBC 10.7 k/uL (3.8-10.6)
[2020-09-08 07:19] LABS: Glucose,Whole Blood 90 mg/dL (75-99)
[2020-09-08] MEDS: SODIUM CHLORIDE TAB 1 GM TAB PO SCH ×2 (08:43→15:53)
[2020-09-08] MEDS: HEPARIN SODIUM,PORCINE 5,000 UNIT/ML 1 ML VIAL SQ SCH ×2 (08:43→22:03)
[2020-09-08] MEDS: FAMOTIDINE 20 MG TAB PO SCH ×2 (08:43→21:51)
[2020-09-08 10:18] LABS: African American GFR (CKD) 136.5 (60.0-200.0); Anion Gap 5.2 mmol/L (4.00-12.00); Calcium 8.3 mg/dL (8.7-10.3); Carbon Dioxide 32.8 mmol/L (21.6-31.8); Magnesium 1.5 mg/dL (1.5-2.4); Non-African American GFR(CKD) 117.8 (60.0-200.0); Potassium 4.1 mmol/L (3.5-5.5)
[2020-09-08] MEDS ORDERED: Magnesium Replacement Protocol 1 EACH MISC MISCELLANE PRN (10:24)
[2020-09-08 11:18] LABS: Glucose,Whole Blood 94 mg/dL (75-99)
[2020-09-08] MEDS: MAGNESIUM SULFATE-D5W PMX 1 GM in DEXTROSE/WATER 1 100ML.BAG IVPB SCH ×2 (11:36→13:27)
--- NOTE | 2020-09-08 12:06 | CDI ---
Documentation Clarification Form Date: 09/08/2020 11:40:52 AM From: Serenity Garrett RN, CCDS Admit Date: 09/06/2020 09:24:00 PM Patient Name: Ricci Arana Visit Number: [id number] Discharge Date: ATTENTION: The Clinical Documentation Specialists (CDI) and [facility] Coding Staff appreciate your assistance in clarifying documentation. Please respond to the clarification below the line at the bottom and electronically sign. The CDI & [facility] Coding staff will review the response and follow-up if needed. Please note: Queries are made part of the Legal Health Record. If you have any questions, please contact the author of this message via ITS. Dr. Ochoa E Sheldon Altered Mental Status was documented in the history of present illness by Nephrology and abnormal sodium on admission 113. Please render your opinion of these findings. History/Risk Factors: CML, COPD, Current every day smoker Clinical Indicators: 60-year-old male present to ED on 09/06 with difficult time concentration, suicidal thoughts, feels paranoid. Nephrology consult had noted mental status changes, increased fatigue. 09/06 Labs: Sodium 113, Potassium 2.4, Chloride 67, Lactic acid 2.4 Treatment: .3 % 500 mls@25 mls/hr IV (09/06) Sodium Chloride 1 gm po tid (start 09/07) K-dur 20 meq po q 1hr x3 In your professional opinion, please clarify the etiology of the Altered Mental Status, if known. Metabolic Encephalopathy Other condition (please specify) Unable to determine (Last Revision: February 2018) Metabolic Encephalopathy MTDD
--- NOTE | 2020-09-08 13:03 | P.PN ---
Progress Note - Text Progress Note Date: 09/08/20 Interval History: Patient was seen accompanied by her daughter. He reports he is okay to share his history with her.at this time, the patient is not endorsing any suicidal or homicidal ideations, intentions, and/or plan. He is not endorsing auditory or visual hallucinations. Denies any paranoia or delusions. After discussion with the patient's daughter, the plan is for the patient to return home under close supervision by his daughter and brothers.The patient is agreeable to this plan at this time. Patient states that he is feeling well and feels safe to return home as he has his family around him. He reports wanting to live for his family. His daughter reports concern that when he is off his haldol he experiences agitation and paranoia which he is not exhibiting at this time. She reports he has follow-up with [place] [facility] early next week. They are open to starting oral haldol in the meantime to bridge from this admission to his follow-up at [facility]. Mental Status Exam: General Appearance: Patient appears to be stated age is alert, directable, and cooperative. Behavior: Patient is calmly seated without any agitated behavior. Eating his meals comfortably. Speech: Patient's speech is fluent and nonpressured. Mood/Affect: Mood is improving mildly, affect is congruent and constricted. Suicidality/Homicidality: Patient denies having any suicidal or homicidal ideation intent or plan. Perceptions: Patient denies any visual hallucinations and denies any auditory hallucinations Though content/process: There is no evidence of any delusional thought content and thought process is linear and goal-directed. Memory and concentration: AOX3, grossly intact for the purposes of this session Judgment and insight: Improving mildly Assessment Major Depressive Disorder, recurrent Schizophrenia by history Plan: -At this time patient DOES NOT meet criteria for inpatient psychiatric admission. -Delirium precautions recommended with patient including - avoiding use of narcotics and CHEMISTRY LAB INSTRUCTOR sedatives, limit anticholinergic medications when possible, frequent re-orientation, minimize use of restraints, open window shades during the day and close them at night -Would recommend the following medication changes/additions: We will hold Zoloft at this time as the patient has significant hyponatremia. We will start haldol 2.5 mg at bedtime to bridge patient from this admission to his follow-up with [facility]. -Discontinue 1:1 sitter. -Patient may be discharged home with supervision by his daughter and family. -Psychiatry will sign off at this point, please contact with any questions.
[2020-09-08] MEDS ORDERED: HALOPERIDOL LACTATE 5 MG/ML 1 ML VIAL IM PRN (15:01)
[2020-09-08] MEDS ORDERED: LORazepam 2 MG/ML INJ IM STA (15:01)
[2020-09-08 16:56] LABS: Glucose,Whole Blood 110 mg/dL (75-99)
--- NOTE | 2020-09-08 19:59 | PN ---
PROGRESS NOTE Patient is seen for followup for hyponatremia which appears to be euvolemic with significantly low random urine sodium and urine osmolality. Patient did admit to increased free water intake. He had some mental status changes initially. Therefore he was started on 3% saline. His sodium has improved today to about 130. Patient is maintained on oral sodium chloride tablets. His blood pressure had been low and it is currently improved. PHYSICAL EXAMINATION: On examination today, blood pressure was 132/74, heart rate 94 per minute. Patient is afebrile. EXAMINATION OF THE HEART: S1 and S2. EXAMINATION OF LUNGS: Bilateral breath sounds are heard. ABDOMEN: Soft, non-tender. Examination of lower extremities shows no significant edema. ATHLETIC GEAR CUSTODIAN exam is grossly intact. LABS: Labs show serum sodium at 130 am today, potassium 4.1, BUN 5, serum creatinine 0.5. ASSESSMENT: 1. Hyponatremia, most likely hypovolemic; however, patient received 3% saline initially secondary to mental status changes. His serum sodium has improved. He was maintained on sodium chloride tabs. Today his sodium is up to 130 from 124 yesterday. I will discontinue the sodium chloride tablets and patient is advised to decrease his fluid intake. He consumes about 6 to 7 cans of diet [place]. Patient is also encouraged to increase oral protein intake. 2. History of depression and schizophrenia. 3. History of chronic obstructive pulmonary disease. 4. Hypokalemia associated with decreased oral intake, status post replacement, currently improved. PLAN: Hold sodium chloride tabs. Repeat labs in a.m. Add saline if needed. Maintain patient on free water restriction. Encourage increased oral intake. MMODL / IJN: [id number] /
--- NOTE | 2020-09-08 20:07 | P.PN ---
Subjective This is a pleasant 60 years old male with past medical history of chronic myelogenous leukemia, status post bone marrow biopsy on 01/2020. He follows up with his psychiatrist at [place]. He used to see Dr. Manzo but he stopped because he did not like him. He does not have a PCP and he follow-up with Dr. Mendoza for his leukemia.patient came to the hospital because he feels depressed and he cannot function for a while, he cannot take care of himself, he cannot leave the house especially he lives by himself and the daughter wants him to to go facility so he can get better care. patient denies specific suicidal attempts however he states that "I want GOD to take me" he also complains of some headache about 8/10 with generalized weakness. he denies drinking plenty fluid. However he has 1-2 loose bowel movement since he started taking his chemotherapy imatinib for his CML he denies chest pain or dyspnea. He has occasional covering He smokes about 1 pack per day and he consult and he does not want nicotine patch. He denies alcohol or illicit drugs No nausea vomiting, no change in his urine habits. No fever In the emergency room patient was found to be hyponatremic Sodium is 117, potassium is 2.6, creatinine normal 0.5, lactic acid is elevated at 2.4, back to normal at 1.5. WBC is 10.3 K, hemoglobin 12.2. Chest x-ray: No acute process by radiologist. The emergency team were consulted as per ED attending note ( Case also discussed with Dr. Lovelace who does request 3% sodium 4 25 mL per hour and then recheck and call her back ). Currently hypertonic saline 3% is discontinued And patient is on normal saline at 130 milliliter/hour 09/08/2020 Patient sodium improved up to 1:30, patient today with no headache or with gene ralized weakness. He was moved out of the ICU to the general medical floor when I saw the patient he was sitting at bedside, walking in the room with no difficulty and easily and he was a pleasant and able to joke, however after grounds patient got agitated with the staff and has to be restrained as he was psychiatrist to self and others, medication as provided for the patient in the form of Haldol and Ativan. Psychiatry follow-up is appreciated and they started him on Haldol 2.5 mg at bedtime, discontinue sitter and they cleared him for discharge with close supervision by daughter and family. Review of Systems CONSTITUTIONAL: No fever, no malaise, no fatigue. HEENT: No recent visual problems or hearing problems. Denied any sore throat. CARDIOVASCULAR: No orthopnea, PND, no palpitations, no syncope. PULMONARY: No shortness of breath, no cough, no hemoptysis. GASTROINTESTINAL: No diarrhea, no nausea, no vomiting, no abdominal pain. Normoactive bowel sounds. NEUROLOGICAL: No headaches, no weakness, no numbness. HEMATOLOGICAL: Denies any bleeding or petechiae. GENITOURINARY: Denies any burning micturition, frequency, or urgency. MUSCULOSKELETAL/RHEUMATOLOGICAL: Denies any joint pain, swelling, or any muscle pain. ENDOCRINE: Denies any polyuria or polydipsia. Objective - Vital Signs Vital signs: Vital Signs Temp 97.4 F L 09/08/20 07:00 Pulse 94 09/08/20 07:00 Resp 18 09/08/20 07:00 BP 132/74 09/08/20 07:00 Pulse Ox 94 L 09/08/20 07:00 Intake & Output 09/07/20 09/08/20 09/08/20 18:59 06:59 18:59 Intake Total 730 Output Total 475 Balance 255 Intake: IV 50 Sodium Chloride 3%( 50 Hypertonic) 500 ml @ 25 mls/hr IV .Q20H [facility] Rx#: [id number] Oral 680 Output: Urine 475 Other: Voiding Method Urinal Urinal # Voids 1 1 3 # Bowel Movements 1 - Exam GENERAL: The patient is alert and oriented x3, not in any acute distress. Well developed, well nourished. HEENT: Pupils are round and equally reacting to light. EOMI. No scleral icterus. No conjunctival pallor. Normocephalic, atraumatic. No pharyngeal erythema. No thyromegaly. CARDIOVASCULAR: S1 and S2 present. No murmurs, rubs, or gallops. PULMONARY: Chest is clear to auscultation, no wheezing or crackles. ABDOMEN: Soft, nontender, nondistended, normoactive bowel sounds. No palpable organomegaly. MUSCULOSKELETAL: No joint swelling or deformity. EXTREMITIES: No cyanosis, clubbing, or pedal edema. NEUROLOGICAL: Gross neurological examination did not reveal any focal deficits. SKIN: No rashes. no petechiae. - Labs CBC & Chem 7: 09/08/20 05:49 09/08/20 05:49 Labs: Abnormal Lab Results - Last 24 Hours (Table) 09/07/20 09/08/20 09/08/20 Range/Units 18:24 05:49 05:49 WBC 10.7 H (3.8-10.6) k/uL RBC 3.92 L (4.30-5.90) m/uL Hgb 12.4 L (13.0-17.5) gm/dL Hct 38.2 L (39.0-53.0) % Sodium 124 L 130 L (137-145) mmol/L Chloride 92 L (96-109) mmol/L Carbon Dioxide 32.8 H (21.6-31.8) mmol/L BUN 5.0 L (9.0-27.0) mg/dL Creatinine 0.5 L (0.6-1.5) mg/dL BUN/Creatinine Ratio 10.00 L (12.00-20.00) Ratio Calcium 8.3 L (8.7-10.3) mg/dL Assessment and Plan Assessment: Severe hyponatremia on admission. could be secondary to Zoloft which is discontinued Depression and agitated. Psychiatric table with the patient Elevated lactic acid, came back to normal Hypokalemia Chronic myelogenous leukemia and he follows with oncologist as an outpatient nicotine dependence Plan: This is a pleasant 6 years old male who presents with depression, as I and hyponatremia. Moved to the general medical floor pulmonary and nephrology team evaluated the patient. Psychiatry on the case and start him on hold all of the same time he got cleared by psychiatrist for discharge consult social workerfor placement Labs and medication were reviewed.. Continue same treatment. Continue with symptomatic treatment. Resume home medication. Monitor lytes and vitals. DVT and GI prophylaxis. Further recommendations as per clinical course of the patient DVT prophylaxis: Subcutaneous heparin GI Prophylaxis: Pepcid Prognosis is guarded
[2020-09-08 20:35] LABS: Glucose,Whole Blood 116 mg/dL (75-99)
[2020-09-08] MEDS: haloperidoL 5 MG TAB PO SCH (21:52)
[2020-09-09 06:30] LABS: Basophils % (A) 0 %; Eosinophils # (A) 0.1 k/uL (0-0.7); Eosinophils % (A) 1 %; HCT 41.4 % (39.0-53.0); HGB 13.3 gm/dL (13.0-17.5); Lymphocytes # (A) 1.7 k/uL (1.0-4.8); Lymphocytes % (A) 18 %; MCH 31.8 pg (25.0-35.0); MCV 99.5 fL (80.0-100.0); Mean Platelet Volume 7.2; Monocytes # (A) 0.3 k/uL (0-1.0); Monocytes % (A) 3 %; Neutrophils # (A) 7.3 k/uL (1.3-7.7); Neutrophils % (A) 77 %; Platelet Count 151 k/uL (150-450); RBC 4.16 m/uL (4.30-5.90); RDW 14.7 % (11.5-15.5); WBC 9.5 k/uL (3.8-10.6)
--- NOTE | 2020-09-09 07:04 | XR ---
EXAMINATION TYPE: XR chest 1V DATE OF EXAM: 09/09/2020 COMPARISON: 09/06/2020 HISTORY: Shortness of breath TECHNIQUE: Single frontal view of the chest is obtained. FINDINGS: Diffuse hyperinflation. Suggest rib deformity. No pneumothorax. Right-sided focal pneumoni a. IMPRESSION: No acute process correlate for COPD.
[2020-09-09 07:52] LABS: Glucose,Whole Blood 127 mg/dL (75-99)
[2020-09-09] MEDS: HEPARIN SODIUM,PORCINE 5,000 UNIT/ML 1 ML VIAL SQ SCH ×2 (08:10→22:01)
[2020-09-09] MEDS: FAMOTIDINE 20 MG TAB PO SCH ×2 (08:10→22:01)
[2020-09-09 09:07] LABS: African American GFR (CKD) 126.7 (60.0-200.0); Anion Gap 6.7 mmol/L (4.00-12.00); BUN/Creat Ratio 13.33 Ratio (12.00-20.00); Calcium 8.9 mg/dL (8.7-10.3); Carbon Dioxide 32.3 mmol/L (21.6-31.8); Magnesium 1.7 mg/dL (1.5-2.4); Non-African American GFR(CKD) 109.3 (60.0-200.0); Potassium 4.7 mmol/L (3.5-5.5)
[2020-09-09 11:27] LABS: Glucose,Whole Blood 101 mg/dL (75-99)
--- NOTE | 2020-09-09 13:26 | P.PN ---
Subjective Progress Note Date: 09/09/20 Principal diagnosis: Impression 1. Hyponatremia secondary to combination of low intake and tea and taost syndrome with hypokalemia improved with her intake, sodium is 132 2. History of depression 3. History of chronic myeloid leukemia on Gleevec 4. Cachexia 5. Hypokalemia secondary to low intake improved to 4.7 Recommendation Maintain adequate nutritional support Objective - Vital Signs Vital signs: Vital Signs Temp 97.8 F 09/09/20 01:00 Pulse 76 09/09/20 01:00 Resp 16 09/09/20 08:00 BP 129/73 09/09/20 01:00 Pulse Ox 94 L 09/09/20 01:00 Intake & Output 09/08/20 09/09/20 09/09/20 18:59 06:59 18:59 Other: Voiding Method Urinal # Voids 3 2 # Bowel Movements 1 - Labs CBC & Chem 7: 09/09/20 06:00 09/09/20 06:00 Labs: Abnormal Lab Results - Last 24 Hours (Table) 09/08/20 09/08/20 09/09/20 Range/Units 16:52 20:33 06:00 RBC (4.30-5.90) m/uL Sodium 132 L (135-145) mmol/L Chloride 93 L (96-109) mmol/L Carbon Dioxide 32.3 H (21.6-31.8) mmol/L BUN 8.0 L (9.0-27.0) mg/dL POC Glucose (mg/dL) 110 H 116 H (75-99) mg/dL 09/09/20 09/09/20 09/09/20 Range/Units 06:00 07:29 11:25 RBC 4.16 L (4.30-5.90) m/uL Sodium (135-145) mmol/L Chloride (96-109) mmol/L Carbon Dioxide (21.6-31.8) mmol/L BUN (9.0-27.0) mg/dL POC Glucose (mg/dL) 127 H 101 H (75-99) mg/dL
[2020-09-09 17:15] LABS: Glucose,Whole Blood 112 mg/dL (75-99)
[2020-09-09 21:10] LABS: Glucose,Whole Blood 107 mg/dL (75-99)
[2020-09-09] MEDS: haloperidoL 5 MG TAB PO SCH (22:01)
--- NOTE | 2020-09-09 22:20 | P.PN ---
Subjective This is a pleasant 60 years old male with past medical history of chronic myelogenous leukemia, status post bone marrow biopsy on 01/2020. He follows up with his psychiatrist at [place]. He used to see Dr. Manzo but he stopped because he did not like him. He does not have a PCP and he follow-up with Dr. Mendoza for his leukemia.patient came to the hospital because he feels depressed and he cannot function for a while, he cannot take care of himself, he cannot leave the house especially he lives by himself and the daughter wants him to to go facility so he can get better care. patient denies specific suicidal attempts however he states that "I want GOD to take me" he also complains of some headache about 8/10 with generalized weakness. he denies drinking plenty fluid. However he has 1-2 loose bowel movement since he started taking his chemotherapy imatinib for his CML he denies chest pain or dyspnea. He has occasional covering He smokes about 1 pack per day and he consult and he does not want nicotine patch. He denies alcohol or illicit drugs No nausea vomiting, no change in his urine habits. No fever In the emergency room patient was found to be hyponatremic Sodium is 117, potassium is 2.6, creatinine normal 0.5, lactic acid is elevated at 2.4, back to normal at 1.5. WBC is 10.3 K, hemoglobin 12.2. Chest x-ray: No acute process by radiologist. The emergency team were consulted as per ED attending note ( Case also discussed with Dr. Lovelcae who does request 3% sodium 4 25 mL per hour and then recheck and call her back ). Currently hypertonic saline 3% is discontinued And patient is on normal saline at 130 milliliter/hour 09/08/2020 Patient sodium improved up to 1:30, patient today with no headache or with gene ralized weakness. He was moved out of the ICU to the general medical floor when I saw the patient he was sitting at bedside, walking in the room with no difficulty and easily and he was a pleasant and able to joke, however after grounds patient got agitated with the staff and has to be restrained as he was psychiatrist to self and others, medication as provided for the patient in the form of Haldol and Ativan. Psychiatry follow-up is appreciated and they started him on Haldol 2.5 mg at bedtime, discontinue sitter and they cleared him for discharge with close supervision by daughter and family. 09/09/2020 Patient is more calm and pleasant today. No specific complaints. Remains on hold AT at bedtime. Psychiatric team signed off His sodium is improved to 132 and nephrology input is appreciated This WBC is back to normal today We'll keep monitoring with labs and vitals for another 24-48 hours with possible discharge if he stable and keep improving Objective - Vital Signs Vital signs: Vital Signs Temp 97.4 F L 09/09/20 15:05 Pulse 70 09/09/20 16:00 Resp 18 09/09/20 16:00 BP 152/81 09/09/20 15:05 Pulse Ox 98 09/09/20 15:05 Intake & Output 09/09/20 09/09/20 09/10/20 06:59 18:59 06:59 Other: Voiding Method Urinal # Voids 2 2 # Bowel Movements 1 - Exam GENERAL: The patient is alert and oriented x3, not in any acute distress. Well developed, well nourished. HEENT: Pupils are round and equally reacting to light. EOMI. No scleral icterus. No conjunctival pallor. Normocephalic, atraumatic. No pharyngeal erythema. No thyromegaly. CARDIOVASCULAR: S1 and S2 present. No murmurs, rubs, or gallops. PULMONARY: Chest is clear to auscultation, no wheezing or crackles. ABDOMEN: Soft, nontender, nondistended, normoactive bowel sounds. No palpable organomegaly. MUSCULOSKELETAL: No joint swelling or deformity. EXTREMITIES: No cyanosis, clubbing, or pedal edema. NEUROLOGICAL: Gross neurological examination did not reveal any focal deficits. SKIN: No rashes. no petechiae. - Labs CBC & Chem 7: 09/09/20 06:00 09/09/20 06:00 Labs: Abnormal Lab Results - Last 24 Hours (Table) 09/09/20 09/09/20 09/09/20 Range/Units 06:00 06:00 07:29 RBC 4.16 L (4.30-5.90) m/uL Sodium 132 L (135-145) mmol/L Chloride 93 L (96-109) mmol/L Carbon Dioxide 32.3 H (21.6-31.8) mmol/L BUN 8.0 L (9.0-27.0) mg/dL POC Glucose (mg/dL) 127 H (75-99) mg/dL 09/09/20 09/09/20 09/09/20 Range/Units 11:25 17:13 21:08 RBC (4.30-5.90) m/uL Sodium (135-145) mmol/L Chloride (96-109) mmol/L Carbon Dioxide (21.6-31.8) mmol/L BUN (9.0-27.0) mg/dL POC Glucose (mg/dL) 101 H 112 H 107 H (75-99) mg/dL Assessment and Plan Assessment: Severe hyponatremia on admission. could be secondary to Zoloft which is discontinued Depression and agitated. Psychiatric table with the patient Elevated lactic acid, came back to normal Hypokalemia Chronic myelogenous leukemia and he follows with oncologist as an outpatient nicotine dependence Plan: This is a pleasant 6 years old male who presents with depression, as I and hy ponatremia. Moved to the general medical floor pulmonary and nephrology team evaluated the patient. Psychiatry on the case and start him on hold all of the same time he got cleared by psychiatrist for discharge consult social workerfor placement Labs and medication were reviewed.. Continue same treatment. Continue with symptomatic treatment. Resume home medication. Monitor lytes and vitals. DVT and GI prophylaxis. Further recommendations as per clinical course of the patient DVT prophylaxis: Subcutaneous heparin GI Prophylaxis: Pepcid Prognosis is guarded
[2020-09-10 06:09] LABS: Basophils % (A) 0 %; Eosinophils # (A) 0.2 k/uL (0-0.7); Eosinophils % (A) 3 %; HCT 38.5 % (39.0-53.0); HGB 12.6 gm/dL (13.0-17.5); Lymphocytes # (A) 1.5 k/uL (1.0-4.8); Lymphocytes % (A) 20 %; MCH 32.2 pg (25.0-35.0); MCHC 32.6 g/dL (31.0-37.0); MCV 98.5 fL (80.0-100.0); Mean Platelet Volume 7.2; Monocytes # (A) 0.4 k/uL (0-1.0); Monocytes % (A) 5 %; Neutrophils # (A) 5.3 k/uL (1.3-7.7); Neutrophils % (A) 71 %; Platelet Count 122 k/uL (150-450); RBC 3.91 m/uL (4.30-5.90); RDW 14.2 % (11.5-15.5); WBC 7.4 k/uL (3.8-10.6)
[2020-09-10 07:00] LABS: Glucose,Whole Blood 106 mg/dL (75-99)
[2020-09-10] MEDS: HEPARIN SODIUM,PORCINE 5,000 UNIT/ML 1 ML VIAL SQ SCH ×2 (08:07→20:44)
[2020-09-10] MEDS: FAMOTIDINE 20 MG TAB PO SCH ×2 (08:07→20:43)
--- NOTE | 2020-09-10 08:42 | P.PN ---
Subjective Progress Note Date: 09/10/20 Principal diagnosis: This is a 6-year-old male with history of chronic myeloid leukemia, psychiatric illnesses, came in because of depression and was found to have significant hypok alemia. Sodium was 117 and potassium is 2.6 with a normal creatinine 0.5. This was thought to be from hypovolemia and tea and toast syndrome. He was treated with IV fluids and has improved. He has started to eat very well. Vital signs are stable blood pressure is 105 systolic to 142 systolic. Urine output is documented 4 75 mL per day before yesterday but none for the last 24 hours. He is doing much better is happy cheerful and wants to go home. Is walking around is eating well Objective - Vital Signs Vital signs: Vital Signs Temp 98.3 F 09/10/20 08:11 Pulse 93 09/10/20 08:11 Resp 18 09/10/20 08:11 BP 116/76 09/10/20 08:11 Pulse Ox 99 09/10/20 08:11 Intake & Output 09/09/20 09/10/20 09/10/20 18:59 06:59 18:59 Other: Voiding Method Urinal Urinal # Voids 2 3 On examination is awake alert oriented comfortable HEENT exam no JVP neck is supple no facial asymmetry Lungs are clear to auscultation and good air entry bilaterally Heart sounds are unremarkable for any murmur rub gallop Abdomen soft nontender Extremity exam was no edema Neurologically awake alert oriented - Labs CBC & Chem 7: 09/10/20 05:36 09/09/20 06:00 Labs: Abnormal Lab Results - Last 24 Hours (Table) 09/09/20 09/09/20 09/09/20 Range/Units 06:00 11:25 17:13 RBC (4.30-5.90) m/uL Hgb (13.0-17.5) gm/dL Hct (39.0-53.0) % Plt Count (150-450) k/uL Sodium 132 L (135-145) mmol/L Chloride 93 L (96-109) mmol/L Carbon Dioxide 32.3 H (21.6-31.8) mmol/L BUN 8.0 L (9.0-27.0) mg/dL POC Glucose (mg/dL) 101 H 112 H (75-99) mg/dL 09/09/20 09/10/20 09/10/20 Range/Units 21:08 05:36 06:59 RBC 3.91 L (4.30-5.90) m/uL Hgb 12.6 L (13.0-17.5) gm/dL Hct 38.5 L (39.0-53.0) % Plt Count 122 L (150-450) k/uL Sodium (135-145) mmol/L Chloride (96-109) mmol/L Carbon Dioxide (21.6-31.8) mmol/L BUN (9.0-27.0) mg/dL POC Glucose (mg/dL) 107 H 106 H (75-99) mg/dL Assessment and Plan Assessment: Impression 1. Hyponatremia secondary to combination of low intake and tea and taost syndrome with hypokalemia, resolving with improved intake, sodium is 132 as of yesterday last today are pending 2. Hypokalemia secondary to low intake improved to 4.7 as of yesterday lasted are pending 3. History of chronic myeloid leukemia on Gleevec 4. Cachexia 5. History of depression Recommendation Maintain adequate nutritional support. Patient can be discharged home and followed up with repeat labs in a week
[2020-09-10 09:28] LABS: African American GFR (CKD) 126.7 (60.0-200.0); Anion Gap 4.3 mmol/L (4.00-12.00); Calcium 9.4 mg/dL (8.7-10.3); Carbon Dioxide 33.7 mmol/L (21.6-31.8); Non-African American GFR(CKD) 109.3 (60.0-200.0); Potassium 4.9 mmol/L (3.5-5.5)
[2020-09-10 11:40] LABS: Glucose,Whole Blood 121 mg/dL (75-99)
[2020-09-10] MEDS ORDERED: HALOPERIDOL LACTATE 5 MG/ML 1 ML VIAL IM ONE (16:19)
[2020-09-10] MEDS ORDERED: SERTRALINE 50 MG TAB PO STA (16:20)
[2020-09-10] MEDS ORDERED: HALOPERIDOL DECANOATE 50 MG/ML 1 ML VIAL IM STA (16:26)
[2020-09-10 17:03] LABS: Glucose,Whole Blood 120 mg/dL (75-99)
--- NOTE | 2020-09-10 17:23 | P.PN ---
Subjective This is a pleasant 60 years old male with past medical history of chronic myelogenous leukemia, status post bone marrow biopsy on 01/2020. He follows up with his psychiatrist at [facility]. He used to see Dr. Manzo but he stopped because he did not like him. He does not have a PCP and he follow-up with Dr. Mendoza for his leukemia.patient came to the hospital because he feels depressed and he cannot function for a while, he cannot take care of himself, he cannot leave the house especially he lives by himself and the daughter wants him to to go facility so he can get better care. patient denies specific suicidal attempts however he states that "I want GOD to take me" he also complains of some headache about 8/10 with generalized weakness. he denies drinking plenty fluid. However he has 1-2 loose bowel movement since he started taking his chemotherapy imatinib for his CML he denies chest pain or dyspnea. He has occasional covering He smokes about 1 pack per day and he consult and he does not want nicotine patch. He denies alcohol or illicit drugs No nausea vomiting, no change in his urine habits. No fever In the emergency room patient was found to be hyponatremic Sodium is 117, potassium is 2.6, creatinine normal 0.5, lactic acid is elevated at 2.4, back to normal at 1.5. WBC is 10.3 K, hemoglobin 12.2. Chest x-ray: No acute process by radiologist. The emergency team were consulted as per ED attending note ( Case also discussed with Dr. Lovelace who does request 3% sodium 4 25 mL per hour and then recheck and call her back ). Currently hypertonic saline 3% is discontinued And patient is on normal saline at 130 milliliter/hour 09/08/2020 Patient sodium improved up to 1:30, patient today with no headache or with gene ralized weakness. He was moved out of the ICU to the general medical floor when I saw the patient he was sitting at bedside, walking in the room with no difficulty and easily and he was a pleasant and able to joke, however after grounds patient got agitated with the staff and has to be restrained as he was psychiatrist to self and others, medication as provided for the patient in the form of Haldol and Ativan. Psychiatry follow-up is appreciated and they started him on Haldol 2.5 mg at bedtime, discontinue sitter and they cleared him for discharge with close supervision by daughter and family. 09/09/2020 Patient is more calm and pleasant today. No specific complaints. Remains on hold AT at bedtime. Psychiatric team signed off His sodium is improved to 132 and nephrology input is appreciated This WBC is back to normal today We'll keep monitoring with labs and vitals for another 24-48 hours with possible discharge if he stable and keep improving 09/10/2020 Patient is awake and alert. No chest pain or dyspnea vital looks stable Sodium today is slightly worse at 129. However we'll check sodium tomorrow for metastases. We'll then consider discharge home Objective - Vital Signs Vital signs: Vital Signs Temp 98.3 F 09/10/20 08:11 Pulse 93 09/10/20 16:00 Resp 18 09/10/20 16:00 BP 116/76 09/10/20 08:11 Pulse Ox 99 09/10/20 08:11 Intake & Output 09/09/20 09/10/20 09/10/20 18:59 06:59 18:59 Other: Voiding Method Urinal Urinal Urinal # Voids 2 3 2 - Exam GENERAL: The patient is alert and oriented x3, not in any acute distress. Well developed, well nourished. HEENT: Pupils are round and equally reacting to light. EOMI. No scleral icterus. No conjunctival pallor. Normocephalic, atraumatic. No pharyngeal erythema. No thyromegaly. CARDIOVASCULAR: S1 and S2 present. No murmurs, rubs, or gallops. PULMONARY: Chest is clear to auscultation, no wheezing or crackles. ABDOMEN: Soft, nontender, nondistended, normoactive bowel sounds. No palpable organomegaly. MUSCULOSKELETAL: No joint swelling or deformity. EXTREMITIES: No cyanosis, clubbing, or pedal edema. NEUROLOGICAL: Gross neurological examination did not reveal any focal deficits. SKIN: No rashes. no petechiae. - Labs CBC & Chem 7: 09/10/20 05:36 09/10/20 05:36 Labs: Abnormal Lab Results - Last 24 Hours (Table) 09/09/20 09/10/20 09/10/20 Range/Units 21:08 05:36 05:36 RBC 3.91 L (4.30-5.90) m/uL Hgb 12.6 L (13.0-17.5) gm/dL Hct 38.5 L (39.0-53.0) % Plt Count 122 L (150-450) k/uL Sodium 129 L (135-145) mmol/L Chloride 91 L (96-109) mmol/L Carbon Dioxide 33.7 H (21.6-31.8) mmol/L POC Glucose (mg/dL) 107 H (75-99) mg/dL 09/10/20 09/10/20 09/10/20 Range/Units 06:59 11:34 17:02 RBC (4.30-5.90) m/uL Hgb (13.0-17.5) gm/dL Hct (39.0-53.0) % Plt Count (150-450) k/uL Sodium (135-145) mmol/L Chloride (96-109) mmol/L Carbon Dioxide (21.6-31.8) mmol/L POC Glucose (mg/dL) 106 H 121 H 120 H (75-99) mg/dL Assessment and Plan Assessment: Severe hyponatremia on admission. could be secondary to Zoloft which is discontinued Depression and agitated. Psychiatric table with the patient Elevated lactic acid, came back to normal Hypokalemia Chronic myelogenous leukemia and he follows with oncologist as an outpatient nicotine dependence Plan: This is a pleasant 6 years old male who presents with depression, as I and hyponatremia. Moved to the general medical floor pulmonary and nephrology team evaluated the patient. Psychiatry on the case and start him on hold all of the same time he got cleared by psychiatrist for discharge consult social workerfor placement Labs and medication were reviewed.. Continue same treatment. Continue with symptomatic treatment. Resume home medication. Monitor lytes and vitals. DVT and GI prophylaxis. Further recommendations as per clinical course of the patient DVT prophylaxis: Subcutaneous heparin GI Prophylaxis: Pepcid Prognosis is guarded
[2020-09-10 20:35] LABS: Glucose,Whole Blood 108 mg/dL (75-99)
[2020-09-10] MEDS: haloperidoL 5 MG TAB PO SCH (20:43)
--- NOTE | 2020-09-11 02:38 | CONS ---
CONSULTATION DATE OF SERVICE: 09/10/2020 PURPOSE FOR CONSULTATION: Evaluate for psychosis. INTERVAL HISTORY: The patient has been seen and Friday by Dr. Ruffin. He has been having some ups and downs in his behavior. Nursing reported that he got into a situation where he was jumping up and down on his bed. He had taken his clothes off. He required restraints. Friday in the afternoon about 3 p.m. he had a situation where he apparently became quite distressed. He seemed to say that it was his understanding he would be discharged. According to the daughter, he lunged at a nurse and then ripped out his IV. When I talked to the nurse today, she said over the last 2 days he has been in a fairly even mood. He has been calm and quiet. He has not shown any difficulties. The daughter notes that he is very stable on his medications though she is concerned that recently he has gone off his Zoloft which may be contributing to some problems. Also, he receives Haldol Decanoate. His last injection was August 09 and he is due for one now, though as yet has not gotten the Haldol Decanoate 50 mg IM. The daughter is concerned because the patient has been showing anger when she has visited him in the last 2 days. Today it was especially prominent when I talked to the patient. He got quite irritated just about my asking questions of his followup through [facility]. He essentially told me to leave the room. His daughter wanted to talk to me individually and he basically said the same thing to his daughter that she should leave. The daughter shared concern that he can do very well and functions well on his own in the community. On the other hand, if his medicines are not well adjusted he can very quickly get into anger that may turn into agitation and aggressive behavior. It is noted that his only psychotropic medication since admission has been Haldol 2.5 mg a day. When I talked to the patient, he was restless. He answered questions with brief responses. Many of his responses were a little tangential. After just a few questions, he started clearly getting irritated and started making statements that he did not want to answer any more questions, that he was taught tired of talking. He got quite distressed as the interview went on, even though I made an effort to talk about fairly mundane subjects. ASSESSMENT: This 60-year-old male was diagnosed with schizophrenia. He currently is on a subtherapeutic dose of Haldol. He likely is showing breakthrough symptoms of psychosis, which has driven some significant behavioral difficulties. At this point I will order Haldol 10 mg IM now. In addition I will change his oral Haldol dosing to 10 mg twice a day. Also, I will order Haldol Decanoate 50 mg IM, which is the dose he has been on through [facility]. Apparently, he is medically stable for discharge, though the daughter is very concerned about the anger issues, which may be difficult to manage with him either being at his own home independently or temporarily coming into his daughter's home where she has children. I would recommend we continue to observe the patient for 24 to 48 hours. I will advise Dr. Ruffin to have a followup with the patient tomorrow and we can re-evaluate. MMNORMAN / DAYAN: [id number] /
[2020-09-11 06:46] LABS: Glucose,Whole Blood 100 mg/dL (75-99)
[2020-09-11 07:07] LABS: Basophils % (A) 0 %; Eosinophils # (A) 0.2 k/uL (0-0.7); Eosinophils % (A) 3 %; HCT 40.4 % (39.0-53.0); HGB 13.3 gm/dL (13.0-17.5); Lymphocytes # (A) 1.4 k/uL (1.0-4.8); Lymphocytes % (A) 25 %; MCH 32.1 pg (25.0-35.0); MCHC 32.8 g/dL (31.0-37.0); Mean Platelet Volume 7.3; Monocytes # (A) 0.3 k/uL (0-1.0); Monocytes % (A) 6 %; Neutrophils # (A) 3.4 k/uL (1.3-7.7); Neutrophils % (A) 64 %; Platelet Count 117 k/uL (150-450); RBC 4.13 m/uL (4.30-5.90); RDW 14.2 % (11.5-15.5); WBC 5.4 k/uL (3.8-10.6)
[2020-09-11] MEDS: HEPARIN SODIUM,PORCINE 5,000 UNIT/ML 1 ML VIAL SQ SCH (08:00)
[2020-09-11] MEDS: FAMOTIDINE 20 MG TAB PO SCH (08:00)
[2020-09-11] MEDS: haloperidoL 5 MG TAB PO SCH (08:01)
[2020-09-11] MEDS ORDERED: SERTRALINE 100 MG TAB PO SCH (09:00)
[2020-09-11 10:22] LABS: African American GFR (CKD) 118.9 (60.0-200.0); Anion Gap 6.7 mmol/L (4.00-12.00); BUN/Creat Ratio 12.86 Ratio (12.00-20.00); Calcium 9.6 mg/dL (8.7-10.3); Carbon Dioxide 30.3 mmol/L (21.6-31.8); Non-African American GFR(CKD) 102.6 (60.0-200.0); Potassium 4.7 mmol/L (3.5-5.5)
--- NOTE | 2020-09-11 11:10 | P.PN ---
Subjective Patient is seen in follow-up for hyponatremia. Sodium level 131 today. Oral intake improving. No vomiting or diarrhea. Vital signs are stable. General: The patient appeared well nourished and normally developed. HEENT: Head exam is unremarkable. Neck is without jugular venous distension. LUNGS: Breath sounds decreased. HEART: Rate and Rhythm are regular. ABDOMEN: Abdominal exam reveals normal bowel sounds. Non-tender and non- distended. EXTREMITITES: No clubbing, cyanosis, or edema. Objective - Vital Signs Vital signs: Vital Signs Temp 97.8 F 09/11/20 07:00 Pulse 88 09/11/20 07:00 Resp 18 09/11/20 08:00 BP 103/68 09/11/20 07:00 Pulse Ox 100 09/11/20 07:00 Intake & Output 09/10/20 09/11/20 09/11/20 18:59 06:59 18:59 Other: Voiding Method Urinal Urinal Urinal # Voids 2 2 - Labs CBC & Chem 7: 09/11/20 06:25 09/11/20 06:25 Labs: Abnormal Lab Results - Last 24 Hours (Table) 09/10/20 09/10/20 09/10/20 Range/Units 11:34 17:02 20:33 RBC (4.30-5.90) m/uL Plt Count (150-450) k/uL Sodium (135-145) mmol/L Chloride (96-109) mmol/L POC Glucose (mg/dL) 121 H 120 H 108 H (75-99) mg/dL 09/11/20 09/11/20 09/11/20 Range/Units 06:25 06:25 06:45 RBC 4.13 L (4.30-5.90) m/uL Plt Count 117 L (150-450) k/uL Sodium 131 L (135-145) mmol/L Chloride 94 L (96-109) mmol/L POC Glucose (mg/dL) 100 H (75-99) mg/dL Assessment and Plan Plan: Assessment: 1. Hyponatremia from poor solute intake. Improving. Sodium level 131 this m orning. 2. Hypokalemia from poor intake. Improved. 3. History of CML. Plan: Encourage oral intake, particularly protein. Advised to maintain 40 oz fluid resection per day. Repeat BMP and magnesium level 2-3 days postdischarge. Follow-up outpatient in 1-2 weeks.
[2020-09-11 11:32] LABS: Glucose,Whole Blood 120 mg/dL (75-99)
--- NOTE | 2020-09-11 14:14 | P.PN ---
Progress Note - Text Progress Note Date: 09/11/20 Interval History: Patient was seen resting in bed and was directable and agreeable to speak with report writer. Patient reports he is feeling better. He is not endorsing any auditory or visual hallucinations. He denies any paranoia or delusions. He has not been noted to have any significant behaviors or agitation since the incident and after receiving haldol decanoate and oral haldol. He is tolerating the medications were and is not endorsing any side effects. He reports no EPS, muscle tightness or chest pain or palpitations. At this time patient denies any suicidal or homical ideations, intent or plan. His daughter reports that the patient appears to be more at baseline. Staff has noted the patient has been well-behaved with no issues. Mental Status Exam: General Appearance: Patient appears to be stated age is alert, directable, and cooperative. Behavior: Patient is calmly seated without any agitated behavior. Speech: Patient's speech is fluent and nonpressured. Mood/Affect: Mood is improving mildly, affect is congruent and constricted. Suicidality/Homicidality: Patient denies having any suicidal or homicidal ideation intent or plan. Perceptions: Patient denies any visual hallucinations and denies any auditory hallucinations Though content/process: There is no evidence of any delusional thought content and thought process is linear and goal-directed. Memory and concentration: AOX3, grossly intact for the purposes of this session Judgment and insight: Improving mildly Assessment Schizophrenia Major Depressive Disorder Plan: -When medically stable, patient may be discharged home with close supervision from his family -Medications: Will decrease oral haldol to 5 mg BID to reduce risk of side effects. Patient received Haldol decanoate 50 mg IM on 09/10/2020. Continue Zoloft 100 mg po daily for depression/anxiety -Psychiatry will sign off at this point, please contact with any questions.
--- NOTE | 2020-09-11 14:51 | P.DS ---
Providers Date of admission: 09/06/20 21:24 Attending physician: Anca Hay Consults: 09/06/20 21:18 Consult Physician Urgent Consulting Provider: Jolene Lovelace Consult Reason/Comments: Hyponatremia Do you want consulting provider notified?: Yes 09/06/20 21:19 Consult Physician Urgent Consulting Provider: Ari Kennedy Consult Reason/Comments: Psychiatric eval Do you want consulting provider notified?: Yes 09/06/20 21:20 Consult Physician Stat Consulting Provider: Kavon Lagunas Consult Reason/Comments: Critical care Do you want consulting provider notified?: Yes 09/08/20 15:35 Consult Physician Stat Consulting Provider: Manish Camacho Consult Reason/Comments: pt violent, in 4 point restraints. Do you want consulting provider notified?: Already Contacted Primary care physician: Stated None Hospital Course: Diagnoses: Severe hyponatremia on admission. could be secondary to Zoloft which is discontinued, and polydipsia Depression and agitated. Psychiatrist adjusted his medication and patient is calm for more than 48 hours prior to discharge Elevated lactic acid, came back to normal Hypokalemia Chronic myelogenous leukemia and he follows with oncologist as an outpatient nicotine dependence Hospital course: This is a pleasant 60 years old male with past medical history of chronic myelogenous leukemia, status post bone marrow biopsy on 01/2020. He follows up with his psychiatrist at [place]. He used to see Dr. Manzo but he stopped because he did not like him. He does not have a PCP and he follow-up with Dr. Mendoza for his leukemia.patient came to the hospital because he feels depressed and he cannot function for a while, patient found to be severely hyponatremic with Sodium is 117, patient has been evaluated by air force pilot and he was treated with hypertonic saline 3% and then normal saline 0.9%, sodium improved gradually. On the day of discharge his sodium is 131. Patient was instructed to maintain fluid restriction However patient remains asymptomatic on the day of discharge with no chest pain or dizziness or weakness or headache or numbness or weakness or change in urine or bowel habits. No fever Patient was cleared for discharge by pulmonary, nephrology and psychiatric team Problems and management plan were discussed with the patient and he verbalized understanding and acceptance Patient was found stable and can be discharged home however he needs follow-up as an outpatient. Patient was instructed to follow up with PCP within one week and patient agrees (patient states he has no PCP, referred to Dr. Hancock and he agrees to call and make appointment in 1 week) Also patient was instructed to follow up with Dr. Lovelace in 2 weeks and with oncologist Dr. Mendoza in 1-2 weeks and he agrees to call and make appointment. Also I called the daughter Miss Melendrez at [phone] and I left a message to call me back Gen: patient is a AAOx3, no distress CVS: S1-S2, RRR, no murmur Lungs: B/L CTA, no wheezing Abdomen: soft, no distention, no tenderness, positive bowel sounds Extremity: no leg edema or induration Time spent more than 35 minutes Patient Condition at Discharge: Serious Plan - Discharge Summary Discharge Rx Participant: Yes New Discharge Prescriptions: New haloperidoL [Haldol] 5 mg PO BID #60 tab Continue Sertraline HCl [Zoloft] 100 mg PO DAILY Imatinib Mesylate [Gleevec] 400 mg PO DAILY Haloperidol Decanoate [Haldol D] 50 mg IM Q28D Albuterol Sulfate [Ventolin HFA] 1 - 2 puff INHALATION RT-QID PRN PRN Reason: Shortness Of Breath Discharge Medication List Sertraline HCl [Zoloft] 100 mg PO DAILY 02/02/18 [History] Imatinib Mesylate [Gleevec] 400 mg PO DAILY 02/04/20 [History] Albuterol Sulfate [Ventolin HFA] 1 - 2 puff INHALATION RT-QID PRN 09/06/20 [History] Haloperidol Decanoate [Haldol D] 50 mg IM Q28D 09/06/20 [History] haloperidoL [Haldol] 5 mg PO BID #60 tab 09/11/20 [Rx] Follow up Appointment(s)/Referral(s): Jolene Lovelace MD [STAFF PHYSICIAN] - 2 Weeks (Cylinder Die Machine Helper for your abnormal sodium) [facility], [NON-STAFF] - Christie Frank MD [REFERRING] - 1 Week Melanie Mendoza MD [STAFF PHYSICIAN] - 1 Week
[2020-09-11 14:53] VITALS: BP 119/68; PULSE 70; RESP 16; TEMP 98
[2020-09-11] MEDS ORDERED: haloperidoL 5 MG TAB PO SCH (21:00)
--- NOTE | 2020-09-12 22:07 | CDI ---
Documentation Clarification Form Date: 09/13/2020 From: Daniel Bass Phone: If you have a question about this query, please contact Chelle Dietz, Cement Storage Worker at [phone] between 8am and 5pm. Admit Date: 09/06/2020 Discharge Date: 09/11/2020 Patient Name: Ricci Arana Visit Number: [id number] ATTENTION: The Clinical Documentation Specialists (CDI) and [facility] Coding Staff appreciate your assistance in clarifying documentation. Please respond to the clarification below the line at the bottom and electronically sign. The CDI & [facility] Coding staff will review the response and follow-up if needed. Please note: Queries are made part of the Legal Health Record. If you have any questions, please contact the author of this message via ITS. Dear Don Kendrick MD., The patients principal diagnosis has not been clearly identified and requires clarification. He presented with Hyponatremia, depression History/Risk factors: COPD, Depression, Hypovolemia, Hypokalemia Lab findings: 117L Per HP states "Severe hyponatremia on admission.Most likely SIADH , which could be secondary to Zoloft". Per DS states "Severe hyponatremia on admission. could be secondary to Zoloft which is discontinued" In your professional opinion, can you please clarify which diagnosis, after study, accounted for the patients presenting symptoms and was the reason chiefly responsible for the admission? Hyponatremia secondary to SIADH Hyponatremia secondary to Zoloft Hyponatremia related to both(SIADH and Zoloft) Other, Please Specify Hyponatremia secondary to excessive drinking LIQUIDS MTDD
== END 2020-09-11 18:10 | disposition home health service (06) | DRG 640 ==
LOC: EC 17:35 → 2SICU 21:24 → 4SSUR 09-07 16:51
PROVIDERS: ADMIT Internal Medicine; ATTEND Internal Medicine
DX: E87.1 Hypo-osmolality and hyponatremia (principal); G93.41 Metabolic encephalopathy; F33.9 Major depressive disorder, recurrent, unspecified; C92.10 Chronic myeloid leukemia, BCR/ABL-positive, not having achieved remission; R45.851 Suicidal ideations; R64 Cachexia; J44.9 Chronic obstructive pulmonary disease, unspecified; F17.210 Nicotine dependence, cigarettes, uncomplicated; M06.9 Rheumatoid arthritis, unspecified; F20.9 Schizophrenia, unspecified; E86.1 Hypovolemia; E87.6 Hypokalemia; E87.2 Acidosis; T43.225A Adverse effect of selective serotonin reuptake inhibitors, initial encounter; F12.90 Cannabis use, unspecified, uncomplicated; R63.1 Polydipsia; Z88.0 Allergy status to penicillin; Z79.899 Other long term (current) drug therapy; Z85.828 Personal history of other malignant neoplasm of skin; Z86.010 Personal history of colon polyps; Z98.890 Other specified postprocedural states; Z80.6 Family history of leukemia; Z82.49 Family history of ischemic heart disease and other diseases of the circulatory system; Z68.20 Body mass index [BMI] 20.0-20.9, adult; Z78.1 Physical restraint status
CPT/HCPCS: 36415; 71045; 71046; 80048; 80053; 80306; 81003; 82533; 83605; 83735; 83935; 84100; 84132; 84295; 84300; 84443; 84484; 85025; 85027; 85610; 85730; 96361; 96365; 99291

== ENCOUNTER 2020-09-15 14:14 | Emergency (ER) | payer MEDICARE, OTHER ==
[2020-09-15 14:46] VITALS: BP 155/65; PULSE 69; RESP 16; TEMP 98
--- NOTE | 2020-09-15 15:27 | ED ---
Recheck HPI - General Chief Complaint: Recheck/Abnormal Lab/Rx Stated Complaint: Sodium Check Time Seen by Provider: 09/15/20 14:48 Source: patient Mode of arrival: ambulatory Limitations: no limitations - History of Present Illness Initial Comments: 60-year-old male presents today for recheck sodium. Patient states he was recently admitted for low sodium he states he is supposed to recheck an outpatient what was unable to say came to the ER after speaking with his daughter he states he really does not have any new symptoms he states he is taking slightly more than usual denies a known history of diabetes patient denies abdominal pain nausea vomiting headache tremors confusion diarrhea fever or additional complaints. Patient appears well nontoxic in no acute distress on arrival. Pleasant and well appearing. - Related Data Home Medications Medication Instructions Recorded Confirmed Sertraline HCl [Zoloft] 100 mg PO DAILY 02/02/18 09/15/20 Imatinib Mesylate [Gleevec] 400 mg PO DAILY 02/04/20 09/15/20 Albuterol Sulfate [Ventolin HFA] 1 - 2 puff INHALATION RT-QID PRN 09/06/20 09/15/20 Haloperidol Decanoate [Haldol D] 50 mg IM Q28D 09/06/20 09/15/20 Inulin/Chromium Picolinate [Fiber 2 tab PO DAILY 09/15/20 09/15/20 Gummies Chew] Loperamide HCl [Imodium A-D] 2 mg PO BID PRN 09/15/20 09/15/20 Previous Rx's Medication Instructions Recorded haloperidoL [Haldol] 5 mg PO BID #60 tab 09/11/20 Allergies Allergy/AdvReac Type Severity Reaction Status Date / Time Penicillins Allergy Anaphylaxis Verified 09/15/20 16:37 Review of Systems ROS Statement: Those systems with pertinent positive or pertinent negative responses have been documented in the HPI. ROS Other: All systems not noted in ROS Statement are negative. Past Medical History Past Medical History: Cancer, COPD, Rheumatoid Arthritis (RA) Additional Past Medical History / Comment(s): CML-takes oral chemo, skin cancer with removals, benign colon polyps, closed head injury History of Any Multi-Drug Resistant Organisms: None Reported Past Surgical History: Orthopedic Surgery Additional Past Surgical History / Comment(s): Colonoscopy/benign polypectomy, skin cancer removals, L upper leg with kira, Bone marrow bx. Past Anesthesia/Blood Transfusion Reactions: Motion Sickness Past Psychological History: Depression, Schizophrenia Smoking Status: Current every day smoker, Heavy tobacco smoker Past Alcohol Use History: None Reported Past Drug Use History: None Reported - Past Family History Father Family Medical History: Cancer Additional Family Medical History / Comment(s): LEUKEMIA Brother(s) Family Medical History: Deep Vein Thrombosis (DVT) Mother Family Medical History: No Reported History Additional Family Medical History / Comment(s): Mother was healthy. General Exam - General Exam Comments Initial Comments: General: The patient is awake and alert, in no distress, and does not appear acutely ill. Eye: +3 mm pupils are equal, round and reactive to light, extra-ocular movements are intact. No nystagmus. There is normal conjunctiva bilaterally. No signs of icterus. Ears, nose, mouth and throat: There are moist mucous membranes and no oral lesions. Neck: The neck is supple, there is no tenderness or JVD. Cardiovascular: There is a regular rate and rhythm. No murmur, rub or gallop is appreciated. Respiratory: Lungs are clear to auscultation, respirations are non-labored, breath sounds are equal. No wheezes, stridor, rales, or rhonchi. Gastrointestinal: Soft, non-distended, non-tender abdomen without masses or organomegaly noted. There is no rebound or guarding present Musculoskeletal: Normal ROM, no tenderness. Strength 5/5. Sensation intact. Pulses equal bilaterally 2+. Neurological: A&O x 3. CN II-XII intact, There are no obvious motor or sensory deficits. Coordination appears grossly intact. Speech is normal. NO tremors. Skin: Skin is warm and dry and no rashes or lesions are noted. Psychiatric: Cooperative, appropriate mood & affect, normal judgment. Limitations: no limitations Course Vital Signs 09/15/20 14:42 Temperature 98.0 F Pulse Rate 69 Respiratory 16 Rate Blood Pressure 155/65 O2 Sat by Pulse 100 Oximetry Medical Decision Making - Medical Decision Making Pt has significant hyponatremia, pt does not appear altered. Urine studies pending. pt refused admission until he can go drop off his car. discussed AMA in detail with nurse present (Stella Treadwell RN) patient verbalized understanding. Patient states he will come back for admission. Dr White was agreeable to admission and has already spoken to Dr. Alonso - Lab Data Result diagrams: 09/15/20 15:30 09/15/20 15:30 Lab Results 09/15/20 09/15/20 09/15/20 Range/Units 15:30 15:30 16:14 WBC 6.2 (3.8-10.6) k/uL RBC 3.74 L (4.30-5.90) m/uL Hgb 11.9 L (13.0-17.5) gm/dL Hct 36.3 L (39.0-53.0) % MCV 97.1 (80.0-100.0) fL MCH 31.9 (25.0-35.0) pg MCHC 32.8 (31.0-37.0) g/dL RDW 14.7 (11.5-15.5) % Plt Count 145 L (150-450) k/uL Neutrophils % 65 % Lymphocytes % 28 % Monocytes % 5 % Eosinophils % 1 % Basophils % 0 % Neutrophils # 4.0 (1.3-7.7) k/uL Lymphocytes # 1.8 (1.0-4.8) k/uL Monocytes # 0.3 (0-1.0) k/uL Eosinophils # 0.1 (0-0.7) k/uL Basophils # 0.0 (0-0.2) k/uL Sodium 125 L (137-145) mmol/L Potassium 3.7 (3.5-5.1) mmol/L Chloride 91 L (98-107) mmol/L Carbon Dioxide 30 (22-30) mmol/L Anion Gap 4 mmol/L BUN 3 L (9-20) mg/dL Creatinine 0.62 L (0.66-1.25) mg/dL Est GFR (CKD-EPI)AfAm >90 (>60 ml/min/1.73 sqM) Est GFR (CKD-EPI)NonAf >90 (>60 ml/min/1.73 sqM) Glucose 96 (74-99) mg/dL Calcium 8.8 (8.4-10.2) mg/dL Magnesium 1.4 L (1.6-2.3) mg/dL Total Bilirubin 0.5 (0.2-1.3) mg/dL AST 31 (17-59) U/L ALT 45 (4-49) U/L Alkaline Phosphatase 50 (38-126) U/L Total Protein 6.0 L (6.3-8.2) g/dL Albumin 3.8 (3.5-5.0) g/dL Urine Color Light Yellow Urine Appearance Clear (Clear) Urine pH 6.0 (5.0-8.0) Ur Specific Logan 1.003 (1.001-1.035) Urine Protein Negative (Negative) Urine Glucose (UA) Negative (Negative) Urine Ketones Negative (Negative) Urine Blood Negative (Negative) Urine Nitrite Negative (Negative) Urine Bilirubin Negative (Negative) Urine Urobilinogen <2.0 (<2.0) mg/dL Ur Leukocyte Esterase Negative (Negative) Disposition Clinical Impression: Hyponatremia, Increased frequency of urination Disposition: Left Against Medical Advice Condition: Undetermined Is patient prescribed a controlled substance at d/c from ED?: No Referrals: None,Stated [Primary Care Provider] - 1-2 days Time of Disposition: 16:42
[2020-09-15 15:39] LABS: Basophils % (A) 0 %; Eosinophils # (A) 0.1 k/uL (0-0.7); Eosinophils % (A) 1 %; HCT 36.3 % (39.0-53.0); HGB 11.9 gm/dL (13.0-17.5); Lymphocytes # (A) 1.8 k/uL (1.0-4.8); Lymphocytes % (A) 28 %; MCH 31.9 pg (25.0-35.0); MCHC 32.8 g/dL (31.0-37.0); MCV 97.1 fL (80.0-100.0); Mean Platelet Volume 6.9; Monocytes # (A) 0.3 k/uL (0-1.0); Monocytes % (A) 5 %; Neutrophils % (A) 65 %; Platelet Count 145 k/uL (150-450); RBC 3.74 m/uL (4.30-5.90); RDW 14.7 % (11.5-15.5); WBC 6.2 k/uL (3.8-10.6)
[2020-09-15 15:50] LABS: ALT 45 U/L (4-49); AST 31 U/L (17-59); African American GFR (CKD) >90 (>60 ml/min/1.73 sqM); Albumin 3.8 g/dL (3.5-5.0); Alkaline Phosphatase 50 U/L (38-126); Anion Gap 4 mmol/L; Blood Urea Nitrogen 3 mg/dL (9-20); Calcium 8.8 mg/dL (8.4-10.2); Carbon Dioxide 30 mmol/L (22-30); Chloride 91 mmol/L (98-107); Glucose 96 mg/dL (74-99); Magnesium 1.4 mg/dL (1.6-2.3); Non-African American GFR(CKD) >90 (>60 ml/min/1.73 sqM); Potassium 3.7 mmol/L (3.5-5.1); Sodium 125 mmol/L (137-145); Total Bilirubin 0.5 mg/dL (0.2-1.3)
[2020-09-15] MEDS ORDERED: SODIUM CHLORIDE 0.9% 1,000 ML IV SCH (16:00)
[2020-09-15 16:33] LABS: Appearance,Urine Clear (Clear); Bilirubin,Urine Negative (Negative); Blood,Urine Negative (Negative); Color,Urine Light Yellow; Glucose,Urine (UA) Negative (Negative); Ketones,Urine Negative (Negative); Leukocyte Esterase,Urine Negative (Negative); Nitrite,Urine Negative (Negative); Protein,Urine Negative (Negative); Specific Gravity,Urine 1.003 (1.001-1.035); Urobilinogen,Urine <2.0 mg/dL (<2.0)
== END 2020-09-15 16:39 | disposition left against medical advice (07) ==
LOC: EC 14:14
DX: E87.1 Hypo-osmolality and hyponatremia (principal); R35.0 Frequency of micturition; J44.9 Chronic obstructive pulmonary disease, unspecified; F32.9 Major depressive disorder, single episode, unspecified; F17.200 Nicotine dependence, unspecified, uncomplicated; Z85.828 Personal history of other malignant neoplasm of skin; Z79.899 Other long term (current) drug therapy; Z92.21 Personal history of antineoplastic chemotherapy; Z88.0 Allergy status to penicillin; Z53.29 Procedure and treatment not carried out because of patient's decision for other reasons
CPT/HCPCS: 36415; 80053; 81003; 83735; 83930; 83935; 84300; 85025; 99283

== ENCOUNTER 2021-05-21 20:32 | Observation (INO) | payer MEDICARE, OTHER ==
[2021-05-21 21:49] LABS: Basophils % (A) 0 %; Eosinophils # (A) 0.1 k/uL (0-0.7); Eosinophils % (A) 1 %; HCT 33.7 % (39.0-53.0); HGB 12.1 gm/dL (13.0-17.5); Lymphocytes # (A) 1.4 k/uL (1.0-4.8); Lymphocytes % (A) 13 %; MCHC 35.9 g/dL (31.0-37.0); MCV 91.7 fL (80.0-100.0); Mean Platelet Volume 7.2; Monocytes # (A) 0.5 k/uL (0-1.0); Monocytes % (A) 5 %; Neutrophils # (A) 8.9 k/uL (1.3-7.7); Neutrophils % (A) 81 %; Platelet Count 348 k/uL (150-450); RBC 3.67 m/uL (4.30-5.90); RDW 14.4 % (11.5-15.5)
[2021-05-21 22:02] LABS: ALT 51 U/L (4-49); AST 50 U/L (17-59); African American GFR (CKD) >90 (>60 ml/min/1.73 sqM); Albumin 3.9 g/dL (3.5-5.0); Alkaline Phosphatase 83 U/L (38-126); Blood Urea Nitrogen 10 mg/dL (9-20); Calcium 9.6 mg/dL (8.4-10.2); Chloride 82 mmol/L (98-107); Glucose 109 mg/dL (74-99); Non-African American GFR(CKD) >90 (>60 ml/min/1.73 sqM); Potassium 2.8 mmol/L (3.5-5.1); Sodium 128 mmol/L (137-145); Total Bilirubin 0.2 mg/dL (0.2-1.3); Total Protein 5.9 g/dL (6.3-8.2)
[2021-05-21 22:08] LABS: Anion Gap 9 mmol/L; Carbon Dioxide 37 mmol/L (22-30)
[2021-05-21 22:29] LABS: Appearance,Urine Clear (Clear); Bilirubin,Urine Negative (Negative); Blood,Urine Negative (Negative); Color,Urine Yellow; Glucose,Urine (UA) Negative (Negative); Ketones,Urine Negative (Negative); Leukocyte Esterase,Urine Negative (Negative); Nitrite,Urine Negative (Negative); Protein,Urine Negative (Negative); Specific Gravity,Urine 1.009 (1.001-1.035); Urobilinogen,Urine <2.0 mg/dL (<2.0)
[2021-05-21 22:47] LABS: Amphetamine Screen,Urine Not Detected (NotDetected); Barbiturate Screen,Urine Not Detected (NotDetected); Benzodiazepines Screen,Urine Not Detected (NotDetected); Cocaine Screen,Urine Not Detected (NotDetected); Methadone Screen, Urine Not Detected (NotDetected); Opiate Screen,Urine Not Detected (NotDetected); Oxycodone Screen, Urine Not Detected (NotDetected); Phencyclidine Screen,Urine Not Detected (NotDetected); Tricyclic Antidepressant,Urine Not Detected (NotDetected); Urn Cannabinoid Scrn Detected (NotDetected)
[2021-05-22] MEDS ORDERED: NALOXONE 0.4 MG/ML 1 ML VIAL IV PRN (00:30)
[2021-05-22] MEDS ORDERED: SODIUM CHLORIDE 0.9% 1,000 ML IV ONE (00:33)
[2021-05-22] MEDS ORDERED: POTASSIUM CHLORIDE ER 20 MEQ TAB.ER PO STA (00:33)
[2021-05-22] MEDS ORDERED: ALBUTEROL NEBULIZED 2.5 MG/3 ML INHALATION PRN (00:33)
--- NOTE | 2021-05-22 01:03 | CT ---
EXAMINATION TYPE: CT brain wo con DATE OF EXAM: 05/22/2021 COMPARISON: None HISTORY: AMS CT DLP: 1161.4 mGycm Automated exposure control for dose reduction was used. Ventricles of normal size. There is no mass effect nor midline shift. There is no sign of intracrania l hemorrhage. The calvarium is intact. Skull base is intact. There is fairly normal aeration of the m astoid sinuses. IMPRESSION: Head CT scan appears normal for age.
[2021-05-22] MEDS: SODIUM CHLORIDE 0.9% 1,000 ML IV SCH ×4 (01:14→23:47)
[2021-05-22] MEDS ORDERED: ALBUTEROL NEBULIZED 2.5 MG/3 ML INHALATION STA (02:36)
[2021-05-22] MEDS ORDERED: predniSONE 20 MG TAB PO STA (02:36)
--- NOTE | 2021-05-22 02:40 | XR ---
EXAMINATION TYPE: XR chest 2V DATE OF EXAM: 05/22/2021 COMPARISON: 09/09/2020 HISTORY: Hypoxemia TECHNIQUE: FINDINGS: Heart and mediastinum are normal. Lungs are clear. Diaphragm is normal. Bony thorax is inta ct. Pulmonary vascularity is normal. IMPRESSION: Normal chest. No change.
[2021-05-22 03:40] LABS: VBG PH 7.47 (7.31-7.41)
[2021-05-22] MEDS: FAMOTIDINE 20 MG TAB PO SCH ×2 (08:18→20:38)
[2021-05-22] MEDS: POTASSIUM CHLORIDE ER 20 MEQ TAB.ER PO SCH ×2 (08:18→20:38)
[2021-05-22] MEDS ORDERED: SERTRALINE 100 MG TAB PO SCH (09:00)
[2021-05-22 11:28] LABS: Glucose,Whole Blood 154 mg/dL (75-99)
--- NOTE | 2021-05-22 14:12 | P.CN ---
Psychiatric Consult - . Consult date: 05/22/21 Consult:: 05/22/21 14:10 IDENTIFYING DATA: This patient is a , on SSI, 61-year-old male with significant history of chronic myelogenous leukemia who was admitted for altered mental status. HISTORY OF PRESENT ILLNESS: The patient presented to the hospital on 05/22/2021, brought into the hospital by EMS after his daughter found him to be altered at his home. Initial diagnostic blood work revealed significant hyponatremia and hypokalemia. When evaluated by the psychiatrist, the patient is reporting that he is feeling significantly better. He is not reporting any significant symptoms of depression, anxiety, or bipolar disorder at this time. He is vehemently denying any suicidal or homicidal ideation, intention, and/or plan. He is denying any auditory or visual hallucinations. He is not reporting any paranoia or other delusions. He does report that his appetite has been low at home and that his sleep has been difficult but is otherwise not endorsing any other significant symptoms of depression. He is currently on a regimen of Zoloft which is prescribed through his provider at [facility]. He is agreeable at this time to decrease or hold his Zoloft due to the hyponatremia. The patient is alert and oriented in all spheres. PAST PSYCHIATRIC HISTORY: Patient has a history of "manic/depression/schizophrenia". The patient has been previously prescribed Haldol and Zoloft. He is currently on a home regimen of Zoloft 100 mg by mouth daily and has been receiving the Haldol decanoate injection every 4 weeks. He does report 2-3 inpatient psychiatric admissions for depression and suicidal ideation. He is currently open with [facility]. The patient does report one prior attempt at suicide in the past but states that there was a long time ago. PAST MEDICAL HISTORY: . ALLERGIES: Penicillins CHEMICAL DEPENDENCY HISTORY: The patient reports he smokes one pack per day of tobacco. He denies any alcohol use. He reports occasional marijuana use. He denies any illicit drug use. FAMILY PSYCHIATRIC/SUBSTANCE USE HISTORY: Patient does not endorse any family psychiatric or substance abuse history. SOCIAL HISTORY: Patient was born and raised [place], [place]. He is currently . He has 2 daughters named Aneesh and Miya. He currently lives by himself. He is the sixth child of 9. He currently receives Social Security. MENTAL STATUS EXAM: General Appearance: Patient appears to be stated age is alert, pleasant, and cooperative. Patient appears to have fair hygiene and grooming wearing hospital gown with fair eye contact. Behavior: Patient is calmly sitting upright in bed without any agitated b ehavior. Psychomotor activity is normal. Eye contact is appropriate. Speech: Patient's speech is fluent and nonpressured. Spontaneous, normal rate, tone, and volume. Mood/Affect: Patient reports their mood is "feeling much better", affect is congruent, euthymic to bright Suicidality/Homicidality: Patient denies having any suicidal or homicidal ideation intent or plan. Perceptions: Patient denies any visual hallucinations and denies any auditory hallucinations Though content/process: There is no evidence of any delusional thought content and thought process is linear and goal-directed. Memory and concentration: AOX3, grossly intact for the purposes of this session. Can spell "WORLD" backwards Judgment and insight: Fair Laboratory Results - Last 24 Hours 05/21/21 05/21/21 05/21/21 21:37 21:37 21:37 WBC 11.0 H RBC 3.67 L Hgb 12.1 L Hct 33.7 L MCV 91.7 MCH 33.0 MCHC 35.9 RDW 14.4 Plt Count 348 MPV 7.2 Neutrophils % 81 Lymphocytes % 13 Monocytes % 5 Eosinophils % 1 Basophils % 0 Neutrophils # 8.9 H Lymphocytes # 1.4 Monocytes # 0.5 Eosinophils # 0.1 Basophils # 0.0 VBG pH VBG pCO2 VBG HCO3 Sodium 128 L Potassium 2.8 L Chloride 82 L Carbon Dioxide 37 H Anion Gap 9 BUN 10 Creatinine 0.58 L Est GFR (CKD-EPI)AfAm >90 Est GFR (CKD-EPI)NonAf >90 Glucose 109 H POC Glucose (mg/dL) POC Glu Assistant Professor [employer] ID Calcium 9.6 Total Bilirubin 0.2 AST 50 ALT 51 H Alkaline Phosphatase 83 Total Protein 5.9 L Albumin 3.9 Urine Color Yellow Urine Appearance Clear Urine pH 7.0 Ur Specific Martha 1.009 Urine Protein Negative Urine Glucose (UA) Negative Urine Ketones Negative Urine Blood Negative Urine Nitrite Negative Urine Bilirubin Negative Urine Urobilinogen <2.0 Ur Leukocyte Esterase Negative Urine Opiates Screen Not Detected Ur Oxycodone Screen Not Detected Urine Methadone Screen Not Detected Ur Propoxyphene Screen Not Detected Ur Barbiturates Screen Not Detected U Tricyclic Antidepress Not Detected Ur Phencyclidine Scrn Not Detected Ur Amphetamines Screen Not Detected U Methamphetamines Scrn Not Detected U Benzodiazepines Scrn Not Detected Urine Cocaine Screen Not Detected U Marijuana (THC) Screen Detected H Coronavirus (PCR) 05/22/21 05/22/21 05/22/21 00:43 02:55 11:27 WBC RBC Hgb Hct MCV MCH MCHC RDW Plt Count MPV Neutrophils % Lymphocytes % Monocytes % Eosinophils % Basophils % Neutrophils # Lymphocytes # Monocytes # Eosinophils # Basophils # VBG pH 7.47 H VBG pCO2 49 VBG HCO3 36 H Sodium Potassium Chloride Carbon Dioxide Anion Gap BUN Creatinine Est GFR (CKD-EPI)AfAm Est GFR (CKD-EPI)NonAf Glucose POC Glucose (mg/dL) 154 H POC Glu Assistant Professor [employer] ID Shanthi Segura Calcium Total Bilirubin AST ALT Alkaline Phosphatase Total Protein Albumin Urine Color Urine Appearance Urine pH Ur Specific Martha Urine Protein Urine Glucose (UA) Urine Ketones Urine Blood Urine Nitrite Urine Bilirubin Urine Urobilinogen Ur Leukocyte Esterase Urine Opiates Screen Ur Oxycodone Screen Urine Methadone Screen Ur Propoxyphene Screen Ur Barbiturates Screen U Tricyclic Antidepress Ur Phencyclidine Scrn Ur Amphetamines Screen U Methamphetamines Scrn U Benzodiazepines Scrn Urine Cocaine Screen U Marijuana (THC) Screen Coronavirus (PCR) Not Detected Vital Signs Temp 97.6 F 05/22/21 08:00 Pulse 73 05/22/21 08:00 Resp 16 05/22/21 08:00 BP 127/76 05/22/21 08:00 Pulse Ox 96 05/22/21 09:14 Intake & Output 05/21/21 05/22/21 05/22/21 18:59 06:59 18:59 Intake Total 300 Balance 300 Weight 65.771 kg Intake: Oral 300 Other: # Voids 1 IMPRESSIONS: Altered mental status, resolved - suspect secondary to electrolyte abnormalities; hyponatremia/hypomania History of bipolar disorder History of schizophrenia Nicotine dependence Cannabis abuse PLAN: -At this time patient DOES NOT meet criteria for inpatient psychiatric admission. The patient is currently not actively psychotic at this time. He is not endorsing any significant symptoms of depression, bipolar disorder, or schizophrenia. He does not present with any imminent risk of harm to self or others or display an inability to care for self. The patient's change in mentation which appears to be resolved is likely secondary to his electrolyte abnormalities. -Delirium precautions recommended with patient including - avoiding use of amrita cotics and INFANTRY OFFICER sedatives, limit anticholinergic medications when possible, frequent re-orientation, minimize use of restraints, open window shades during the day and close them at night -Would recommend the following medication changes/additions: We'll decrease Zoloft to 50 mg by mouth daily and gradually taper this medication due to hyponatremia. Continue Haldol Decanoate 50 mg IM [id number] for psychosis/mood stabilization. -Psychiatry will continue to follow as we taper zoloft. 05/22/21 14:11
--- NOTE | 2021-05-22 16:26 | P.CNNES ---
History of Present Illness Consult date: 05/22/21 Requesting physician: Jesu Vicente Reason for Consult: Altered mental status History of Present Illness: Patient is a 61-year-old male, with history of chronic myelogenous leukemia, psychiatric disorder bipolar versus ?schizophrenia came to the hospital by ambulance yesterday at 8:32 PM. for altered mental status. Vital signs on arrival blood pressure 131/79, pulse rate 85, temperature 98.2. Computed tomography scan of head showed no acute process. Head CT appears normal for age. Chest x-ray is normal. Blood test shows normal platelets, WBC 11.0, hemoglobin 12.1. VBG with pH of 7.47, pCO2 49 and HCO3 36. Sodium 128 potassium 2.8, normal renal functions. AST is 50, AST is borderline 51. UA is negative urine drug screen positive for marijuana. Pollock virus PCR negative. Patient's previous hemoglobin A1c 5.6 on 09/18/2020. Patient takes Zoloft 100 mg, Gleevac, Haldol 100 mg per mL vial, 50 mg IM every 28 days, albuterol. Patient states that he had 2 episodes of mental confusion but was not able to provide a detailed history. He states that his daughter got concerned and called the ambulance and he was brought to the hospital. Patient denies diabetes hypertension. He has smoked 1 pack per day for 47 years, denies any alcohol. He smokes marijuana sometimes. I spoke to patient's daughter on the phone, who provided very detailed history. She states that patient has long-standing history of psychiatric problems. Whenever he gets mental breakdown, he does get very angry violent. Yesterday when she stopped over at his house, she found him standing naked in his roommates room. She asked him to get dressed but he would not listen. She left him there (as patient's daughter knows that if she presses on something, he gets violent, as per previous history). She brought her about 30 minutes later and he was still standing naked in the same spot. He has peed and pooped all over the house. Her tried to persuade him to get dressed and he did. Finally they called the ambulance by the time paramedics arrived, he was fully dressed and patient apparently appeared much better at that time. He almost appeared "euphoric" at that time, as described by his daughter. He greeted the paramedics and the police. He was brought to the hospital. Patient's daughter states that he has been having episodes of mood swings, in which he gets psychotic. Patient's daughter mentions that when she herself was a child, patient used to get psychotic a lot. However for the last 10 years he has been doing very well, had good relation with his daughter Sweta. However lately he has been having spells, in which he becomes upset easily, one time states that he was going to discuss on his daughter and she should leave and he has nothing to do with her. Another time patient got late getting to his house, and he states that he is going to blow his head, which she has never said before. She believes that patient is getting psychotic in and out. The same thing happened last year when he was hyponatremic, but his sodium was very low down to 113. This time it is just borderline 128, doubt as a cause of his psychosis. Review of Systems As per HPI. All other review of systems reviewed and completely unremarkable. Patient does have some left hip pain from previous accident. Past Medical History Past Medical History: Cancer, COPD, Rheumatoid Arthritis (RA) Additional Past Medical History / Comment(s): CML-takes oral chemo, skin cancer with removals, benign colon polyps, closed head injury History of Any Multi-Drug Resistant Organisms: None Reported Past Surgical History: Orthopedic Surgery Additional Past Surgical History / Comment(s): Colonoscopy/benign polypectomy, skin cancer removals, L upper leg with kira, Bone marrow bx. Past Anesthesia/Blood Transfusion Reactions: Motion Sickness Past Psychological History: Depression, Schizophrenia Additional Psychological History / Comment(s): Pt resides alone. He has a nebulizer. He uses no assistive devices. He drives. He is medically disabled. Smoking Status: Current every day smoker, Heavy tobacco smoker Past Alcohol Use History: None Reported Additional Past Alcohol Use History / Comment(s): Pt started smoking in 1976. Smokes 1 ppd. Past Drug Use History: Marijuana Additional Drug Use History / Comment(s): - MARIJUANA - A TEEN - Past Family History Father Family Medical History: Cancer Additional Family Medical History / Comment(s): LEUKEMIA Brother(s) Family Medical History: Deep Vein Thrombosis (DVT) Mother Family Medical History: No Reported History Additional Family Medical History / Comment(s): Mother was healthy. Medications and Allergies Home Medications Medication Instructions Recorded Confirmed Type Sertraline HCl [Zoloft] 100 mg PO HS 02/02/18 05/22/21 History Imatinib Mesylate [Gleevec] 400 mg PO DAILY 02/04/20 05/22/21 History Albuterol Sulfate [Ventolin HFA] 2 puff INHALATION RT-Q4H PRN 09/06/20 05/22/21 History Haloperidol Decanoate [Haldol D] 50 mg IM Q28D 09/06/20 05/22/21 History Allergies Allergy/AdvReac Type Severity Reaction Status Date / Time Penicillins Allergy Anaphylaxis Verified 09/15/20 16:37 Physical Examination - Vital Signs Vital Signs: Vital Signs Temp Pulse Pulse Resp BP BP Pulse Ox 05/22/21 14:00 97.9 F 73 16 116/69 95 05/22/21 09:14 96 05/22/21 08:00 97.6 F 73 16 127/76 93 L 05/22/21 04:03 98.2 F 85 18 131/79 97 05/22/21 03:20 83 05/22/21 03:11 83 05/22/21 02:10 97 05/21/21 20:39 98.7 F 82 19 135/75 90 L Intake and Output 05/22/21 05/22/21 05/22/21 06:59 14:59 22:59 Intake Total 300 Balance 300 Intake: Oral 300 Other: # Voids 1 Weight 65.771 kg Patient is a late middle aged male, in no distress. He appears slightly manicky. Patient is alert awake oriented to time place and person. He states it is May, then said was June and the year is 2020. He knows name of the current president and that he is in [facility]. Speech and language functions are normal. Attention, concentration and fund of knowledge is adequate. On cranial examination, pupils are round and reacting to light, visual thomas are full on confrontation, extraocular muscles are intact with no nystagmus. Face is symmetric, tongue protrudes to the midline. Palatal elevation and sensation normal, hearing and shoulder shrug normal, facial sensation normal. Shoulder shrug normal. On muscle strength testing, there is no pronator drift and the strength is normal in arms and legs distally and proximally, except left hip flexion, which is 5-as compared to the right. Deep tendon reflexes are symmetric, trace at the biceps, 0 brachioradialis, 2 at the knees 1 ankles and plantars downgoing. Sensory to touch is equal with no neglect. Cerebellar function showed no ataxia for [id number] testing. No dysdiadochokinesia. Tone and bulk of muscles normal. Gait normal. On general examination, there is no carotid bruit or murmur, S1-S2 audible. Abdomen is soft nontender. Chest is clear. Peripheral pulses are present. No edema. Results - Laboratory Findings CBC and BMP: 05/21/21 21:37 05/21/21 21:37 Abnormal Lab Findings: Abnormal Labs 05/21/21 05/21/21 05/21/21 21:37 21:37 21:37 WBC 11.0 H RBC 3.67 L Hgb 12.1 L Hct 33.7 L Neutrophils # 8.9 H VBG pH VBG HCO3 Sodium 128 L Potassium 2.8 L Chloride 82 L Carbon Dioxide 37 H Creatinine 0.58 L Glucose 109 H POC Glucose (mg/dL) ALT 51 H Total Protein 5.9 L U Marijuana (THC) Screen Detected H 05/22/21 05/22/21 02:55 11:27 WBC RBC Hgb Hct Neutrophils # VBG pH 7.47 H VBG HCO3 36 H Sodium Potassium Chloride Carbon Dioxide Creatinine Glucose POC Glucose (mg/dL) 154 H ALT Total Protein U Marijuana (THC) Screen Assessment and Plan Assessment: * Recurrent episodes of psychosis in a patient who has long-standing history of psychiatric disorder, bipolar versus ?Schizophrenia versus schizoaffective di sorder. Patient's sodium was 128 (as compared to 113 in August 2020), therefore probably not the cause of current psychotic episode. Seizure is a possibility, although very unlikely. * Tobacco use * Chronic myelogenous leukemia, currently in remission. Plan: * We will perform EEG to evaluate for any interictal epileptiform activity. If the EEG is normal, I would consider these episodes as psychotic and would recommend psychiatry follow-up. Even at this time patient appears to be pacing in the hallway, difficult to get redirected, appears more psychotic than delirious. * Patient's daughter was also recommended for patient to follow up with a neurologist as outpatient after his mentation is completely stabilized to rule out early stage of cognitive impairment. * We will check B12, folate, RPR. * Discussed with patient's daughter in detail.
[2021-05-22 20:47] LABS: Glucose,Whole Blood 125 mg/dL (75-99)
[2021-05-23 01:40] LABS: Folate, Serum 9.7 ng/mL
[2021-05-23 07:28] LABS: Glucose,Whole Blood 186 mg/dL (75-99)
[2021-05-23] MEDS: FAMOTIDINE 20 MG TAB PO SCH (07:45)
[2021-05-23] MEDS: SODIUM CHLORIDE 0.9% 1,000 ML IV SCH ×2 (07:45→17:33)
[2021-05-23] MEDS: POTASSIUM CHLORIDE ER 20 MEQ TAB.ER PO SCH ×3 (07:45→17:32)
[2021-05-23 07:53] VITALS: RESP 18
[2021-05-23] MEDS ORDERED: ENOXAPARIN 40 MG/0.4 ML SYRINGE SQ SCH (09:00)
[2021-05-23] MEDS ORDERED: SERTRALINE 50 MG TAB PO SCH (09:00)
[2021-05-23 11:27] LABS: Glucose,Whole Blood 106 mg/dL (75-99)
[2021-05-23] MEDS ORDERED: DOXYCYCLINE 100 MG CAP PO SCH (12:00)
[2021-05-23 13:34] LABS: African American GFR (CKD) 135.6 (60.0-200.0); Anion Gap 9.1 mmol/L (4.00-12.00); Calcium 8.2 mg/dL (8.7-10.3); Carbon Dioxide 30.9 mmol/L (21.6-31.8)
--- NOTE | 2021-05-23 14:11 | P.PN ---
Progress Note - Text Progress Note Date: 05/23/21 Interval History: Patient was seen in his room, eating his lunch. Currently, the patient is not reporting any suicidal or homicidal ideation, intention, and/or plan. He is not reporting any auditory or visual hallucinations. He is alert and oriented in all spheres. The patient is able to recall that he recently received his Haldol Decanoate injection and does not appear to be actively psychotic at this time. The patient expresses uncertainty as to why his sodium levels drop. He does admit that he drinks an excessive amount of Pepsi but denies any water intake. He reports that he would drink up to 2-3 L of Pepsi per day. He does admit that he has to cut back and he plans to cut down to at least 1 L per day. Furthermore, the patient does report that he wishes to quit to his tobacco use. He is tolerating the decrease in his Zoloft well and is not reporting any significant side effects of his medications. The patient is denying any issues with his sleep or appetite. As per discussion with the patient's nurse, he has been calm and cooperative on the unit. He displays self-control and is directable and pleasant. Mental Status Exam: General Appearance: Patient appears to be stated age is alert, directable, and cooperative. Fair hygiene and grooming. Behavior: Patient is calmly seated without any agitated behavior. Patient is eating his lunch. Speech: Patient's speech is fluent and nonpressured. Spontaneous, with normal rate, tone, and volume. Mood/Affect: Mood is "feeling pretty good." Affect is euthymic to bright. Suicidality/Homicidality: Patient denies having any suicidal or homicidal ideation intent or plan. Perceptions: Patient denies any visual hallucinations and denies any auditory hallucinations Though content/process: There is no evidence of any delusional thought content and thought process is linear and goal-directed. Memory and concentration: AOX4, grossly intact for the purposes of this session Judgment and insight: Improving mildly Vital Signs Temp 97.8 F 05/23/21 07:52 Pulse 65 05/23/21 07:52 Resp 18 05/23/21 07:52 BP 128/68 05/23/21 07:52 Pulse Ox 95 05/23/21 09:03 Intake & Output 05/22/21 05/23/21 05/23/21 18:59 06:59 18:59 Intake Total 1900 Balance 1900 Intake: Intake, IV Titration 1200 Amount Sodium Chloride 0.9% 1, 1200 000 ml @ 125 mls/hr IV . Q8H [facility] Rx#:[id number] Oral 700 Other: # Voids 4 Laboratory Results - Last 24 Hours 05/21/21 05/21/21 05/22/21 21:37 21:37 20:40 Sodium Potassium Chloride Carbon Dioxide Anion Gap BUN Creatinine Est GFR (CKD-EPI)AfAm Est GFR (CKD-EPI)NonAf BUN/Creatinine Ratio Glucose POC Glucose (mg/dL) 125 H POC Glu Nutrition Services Manager ID Elidia Saunders Calcium Vitamin B12 908.0 Folate 9.7 Treponema pallidum Ab Non-Reactive 05/23/21 05/23/21 05/23/21 06:59 07:27 11:26 Sodium 131 L Potassium 3.0 L Chloride 91 L Carbon Dioxide 30.9 Anion Gap 9.10 BUN 5.0 L Creatinine 0.5 L Est GFR (CKD-EPI)AfAm 135.6 Est GFR (CKD-EPI)NonAf 117.0 BUN/Creatinine Ratio 10.00 L Glucose 89 POC Glucose (mg/dL) 186 H 106 H POC Glu Nutrition Services Manager ID Oliva Baker BoldOliva martínez Calcium 8.2 L Vitamin B12 Folate Treponema pallidum Ab ASSESSMENT: Altered mental status, resolved - suspect secondary to electrolyte abnormalities; hyponatremia/hypomania Hyponatremia - improving History of bipolar disorder History of schizophrenia Nicotine dependence Cannabis abuse PLAN: -At this time patient DOES NOT meet criteria for inpatient psychiatric admission. The patient is currently not actively psychotic at this time. He is receiving the Haldol Decanoate Long acting injectible medication monthly to ensure compliance. -Delirium precautions recommended with patient including - avoiding use of narcotics and CONTESTANT COORDINATOR sedatives, limit anticholinergic medications when possible, frequent re-orientation, minimize use of restraints, open window shades during the day and close them at night -Would recommend the following medication changes/additions: Continue Zoloft 50 mg daily for depression/anxiety. Medication to be managed by his outpatient psychiatrist. Continue Haldol Decanoate 50 mg IM [id number] for psychosis/mood stabilization. -Psychiatry will sign off at this time. Recommend outpatient psychiatric follow- up if there is concern that the patient is continuously psychotic or needs further evaluation. Currently no criteria for admission is met.
[2021-05-23 15:09] VITALS: BP 145/77; PULSE 62; TEMP 97.7
--- NOTE | 2021-05-23 15:44 | P.HPIM ---
History of Present Illness H&P Date: 05/22/21 Patient is 61-year-old male with a history of myelogenous leukemia and bipolar disorder and history of hyponatremia came in with the altered mental status confused. Patient confused and significant improved by the time I evaluated the patient. Patient apparently gets up angry violent. Patient was evaluated by neurology as well as psychiatry.. Patient is also found to have sodium of 128 as opposed to extremely low sodium during his previous hospitalization. At that time patient was diagnosed with psychogenic polydipsia and a flu is a restriction was recommended at that time. Patient was started on fluid restriction as well as IV normal saline as as well with them REVIEW OF SYSTEMS: CONSTITUTIONAL: No fever, no malaise, no fatigue. HEENT: No recent visual problems or hearing problems. Denied any sore throat. CARDIOVASCULAR: No chest pain, orthopnea, PND, no palpitations, no syncope. PULMONARY: No shortness of breath, no cough, no hemoptysis. GASTROINTESTINAL: No diarrhea, no nausea, no vomiting, no abdominal pain. NEUROLOGICAL: No headaches, no weakness, no numbness. HEMATOLOGICAL: Denies any bleeding or petechiae. GENITOURINARY: Denies any burning micturition, frequency, or urgency. MUSCULOSKELETAL/RHEUMATOLOGICAL: Denies any joint pain, swelling, or any muscle pain. ENDOCRINE: Denies any polyuria or polydipsia. The rest of the 14-point review of systems is negative. PHYSICAL EXAMINATION: GENERAL: The patient is alert and oriented x3, not in any acute distress. Well developed, well nourished. HEENT: Pupils are round and equally reacting to light. EOMI. No scleral icterus. No conjunctival pallor. Normocephalic, atraumatic. No pharyngeal erythema. No thyromegaly. CARDIOVASCULAR: S1 and S2 present. No murmurs, rubs, or gallops. PULMONARY: Chest is clear to auscultation, no wheezing or crackles. ABDOMEN: Soft, nontender, nondistended, normoactive bowel sounds. No palpable organomegaly. MUSCULOSKELETAL: No joint swelling or deformity. EXTREMITIES: No cyanosis, clubbing, or pedal edema. NEUROLOGICAL: Gross neurological examination did not reveal any focal deficits. SKIN: No rashes. Assessment and plan -Hyponatremia mostly psychogenic polydipsia, fluid restriction repeat the sodium tomorrow cutting down the dose of sertraline. -Altered mental status probably related to psychosis at the Patient dementia. Patient will benefit from outpatient any cognitive testing once is a stabilizer. Patient was evaluated by neurology and there is no evidence of toxic encephalopathy possibly of metabolic encephalopathy is low as well. There is no evidence of infection at this time. EEG is being recommended by neurology -History of CML with elevated white blood cell count, follow-up with hematology and oncology as an outpatient patient is on imatinib which will be continued -COPD with mild acute exacerbation patient was started on doxycycline inhalational steroids and inhalational treatments patient received oral steroids in ER. -History of and multiple hospitalizations secondary to acute psychosis psychiatry evaluated the patient cutting down the dose of sertraline as per their recommendation patient will continue with the once and 30 days Haldol injections. -DVT prophylaxis with Lovenox - -DVT prophylaxis: Past Medical History Past Medical History: Cancer, COPD, Rheumatoid Arthritis (RA) Additional Past Medical History / Comment(s): CML-takes oral chemo, skin cancer with removals, benign colon polyps, closed head injury History of Any Multi-Drug Resistant Organisms: None Reported Past Surgical History: Orthopedic Surgery Additional Past Surgical History / Comment(s): Colonoscopy/benign polypectomy, skin cancer removals, L upper leg with kira, Bone marrow bx. Past Anesthesia/Blood Transfusion Reactions: Motion Sickness Past Psychological History: Depression, Schizophrenia Additional Psychological History / Comment(s): Pt resides alone. He has a nebulizer. He uses no assistive devices. He drives. He is medically disabled. Smoking Status: Current every day smoker, Heavy tobacco smoker Past Alcohol Use History: None Reported Additional Past Alcohol Use History / Comment(s): Pt started smoking in 1976. Smokes 1 ppd. Past Drug Use History: Marijuana Additional Drug Use History / Comment(s): - MARIJUANA - A TEEN - Past Family History Father Family Medical History: Cancer Additional Family Medical History / Comment(s): LEUKEMIA Brother(s) Family Medical History: Deep Vein Thrombosis (DVT) Mother Family Medical History: No Reported History Additional Family Medical History / Comment(s): Mother was healthy. Medications and Allergies Home Medications Medication Instructions Recorded Confirmed Type Imatinib Mesylate [Gleevec] 400 mg PO DAILY 02/04/20 05/22/21 History Albuterol Sulfate [Ventolin HFA] 2 puff INHALATION RT-Q4H PRN 09/06/20 05/22/21 History Haloperidol Decanoate [Haldol D] 50 mg IM Q28D 09/06/20 05/22/21 History Budesonide-Formot 160-4.5 Mcg 2 puff INHALATION BID #1 inhaler 05/23/21 Rx [Symbicort 160-4.5 Mcg Inhaler] Doxycycline [Vibramycin] 100 mg PO BID #7 cap 05/23/21 Rx Allergies Allergy/AdvReac Type Severity Reaction Status Date / Time Penicillins Allergy Anaphylaxis Verified 09/15/20 16:37 Physical Exam Vitals: Vital Signs Temp Pulse Resp BP Pulse Ox 05/23/21 14:00 97.7 F 62 18 145/77 99 05/23/21 09:03 95 05/23/21 07:52 97.8 F 65 18 128/68 95 05/23/21 02:25 97.7 F 68 20 134/47 90 L 05/22/21 19:07 97.9 F 71 16 129/74 94 L 05/22/21 19:05 73 16 Intake and Output 05/23/21 05/23/21 05/23/21 06:59 14:59 22:59 Intake Total 1600 Balance 1600 Intake: Intake, IV Titration 1200 Amount Sodium Chloride 0.9% 1, 1200 000 ml @ 125 mls/hr IV . Q8H [facility] Rx#:[id number] Oral 400 Other: # Voids 4 Results CBC & Chem 7: 05/21/21 21:37 05/23/21 06:59 Labs: Abnormal Lab Results - Last 24 Hours (Table) 05/22/21 05/23/21 05/23/21 Range/Units 20:40 06:59 07:27 Sodium 131 L (135-145) mmol/L Potassium 3.0 L (3.5-5.5) mmol/L Chloride 91 L (96-109) mmol/L BUN 5.0 L (9.0-27.0) mg/dL Creatinine 0.5 L (0.6-1.5) mg/dL BUN/Creatinine Ratio 10.00 L (12.00-20.00) Ratio POC Glucose (mg/dL) 125 H 186 H (75-99) mg/dL Calcium 8.2 L (8.7-10.3) mg/dL 06/30/21 Range/Units 11:26 Sodium (135-145) mmol/L Potassium (3.5-5.5) mmol/L Chloride (96-109) mmol/L BUN (9.0-27.0) mg/dL Creatinine (0.6-1.5) mg/dL BUN/Creatinine Ratio (12.00-20.00) Ratio POC Glucose (mg/dL) 106 H (75-99) mg/dL Calcium (8.7-10.3) mg/dL Thrombosis Risk Factor Assmnt - Choose All That Apply Each Risk Factor Represents 2 Points: Age 61-74 years Thrombosis Risk Factor Assessment Total Risk Factor Score: 2 Thrombosis Risk Factor Assessment Level: Low Risk
--- NOTE | 2021-05-23 15:48 | P.DS ---
Providers Date of admission: 05/22/21 00:30 Attending physician: Lea Alonso Consults: 05/22/21 03:54 Consult Physician Routine Consulting Provider: Vicente Cabrera Consult Reason/Comments: Altered mental status Do you want consulting provider notified?: Yes 05/22/21 03:55 Consult Physician Routine Consulting Provider: Wilian Ruffin Consult Reason/Comments: altered mental status Do you want consulting provider notified?: Yes Primary care physician: Stated None Hospital Course: Patient is 61-year-old male with a history of myelogenous leukemia and bipolar disorder and history of hyponatremia came in with the altered mental status confused. Patient confused and significant improved by the time I evaluated the patient. Patient apparently gets up angry violent. Patient was evaluated by neurology as well as psychiatry.. Patient is also found to have sodium of 128 as opposed to extremely low sodium during his previous hospitalization. At that time patient was diagnosed with psychogenic polydipsia and a flu is a restriction was recommended at that time. Patient was started on fluid restriction as well as IV normal saline as as well with them. 05/23/2021 Patient's confusion improved patient may have dementia but the patient need outpatient mini cognitive testing and patient was referred to neurology. Patient's hyponatremia did improve patient will need to continue fluid restricti on as an outpatient follow-up with nephrology as an outpatient repeat basic metabolic profile is being obtained cutting down the dose of the sertraline as recommended by psychiatry. Patient had an EEG which was within normal limits. PHYSICAL EXAMINATION: GENERAL: The patient is alert and oriented x3, not in any acute distress. Well developed, well nourished. HEENT: Pupils are round and equally reacting to light. EOMI. No scleral icterus. No conjunctival pallor. Normocephalic, atraumatic. No pharyngeal erythema. No thyromegaly. CARDIOVASCULAR: S1 and S2 present. No murmurs, rubs, or gallops. PULMONARY: Chest is clear to auscultation, no wheezing or crackles. ABDOMEN: Soft, nontender, nondistended, normoactive bowel sounds. No palpable organomegaly. MUSCULOSKELETAL: No joint swelling or deformity. EXTREMITIES: No cyanosis, clubbing, or pedal edema. NEUROLOGICAL: Gross neurological examination did not reveal any focal deficits. SKIN: No rashes. Assessment and plan -Hyponatremia mostly psychogenic polydipsia, fluid restriction repeat the sodium tomorrow cutting down the dose of sertraline. -Altered mental status probably related to psychosis , patient may have underlying dementia. Patient will benefit from outpatient any cognitive testing once he is stabilized. EEG essentially within normal limits -History of CML with elevated white blood cell count, follow-up with hematology and oncology as an outpatient patient is on imatinib which will be continued -COPD with mild acute exacerbation patient was started on doxycycline inhalational steroids and inhalational treatments patient received oral steroids in ER. -History of and multiple hospitalizations secondary to acute psychosis psychiatry evaluated the patient cutting down the dose of sertraline as per their recommendation patient will continue with the once and 30 days Haldol injections. Plan - Discharge Summary Discharge Rx Participant: Yes New Discharge Prescriptions: New Doxycycline [Vibramycin] 100 mg PO BID #7 cap Budesonide-Formot 160-4.5 Mcg [Symbicort 160-4.5 Mcg Inhaler] 2 puff INHALATION BID #1 inhaler Continue Imatinib Mesylate [Gleevec] 400 mg PO DAILY Haloperidol Decanoate [Haldol D] 50 mg IM Q28D Albuterol Sulfate [Ventolin HFA] 2 puff INHALATION RT-Q4H PRN PRN Reason: Shortness Of Breath Discontinued Sertraline HCl [Zoloft] 100 mg PO HS Discharge Medication List Imatinib Mesylate [Gleevec] 400 mg PO DAILY 02/04/20 [History] Albuterol Sulfate [Ventolin HFA] 2 puff INHALATION RT-Q4H PRN 09/06/20 [History] Haloperidol Decanoate [Haldol D] 50 mg IM Q28D 09/06/20 [History] Budesonide-Formot 160-4.5 Mcg [Symbicort 160-4.5 Mcg Inhaler] 2 puff INHALATION BID #1 inhaler 05/23/21 [Rx] Doxycycline [Vibramycin] 100 mg PO BID #7 cap 05/23/21 [Rx] Follow up Appointment(s)/Referral(s): Christie Frank MD [REFERRING] - 3 Days Suzi Arguello MD [REFERRING] - 1 Week [facility], [NON-STAFF] - Ubaldo Olivera DO [STAFF PHYSICIAN] - 1 Week Ambulatory/Diagnostic Orders: Basic Metabolic Panel [LAB.AMB] Time Frame: 3 Days, Location: None Selected Activity/Diet/Wound Care/Special Instructions: Fluid restriction to 1500 mL per day
--- NOTE | 2021-05-23 16:26 | EEG ---
ELECTROENCEPHALOGRAM REPORT DATE OF SERVICE: 05/23/2021 PREAMBLE: This is a 61-year-old male with episodes of altered mental status. This study is performed to rule out any epileptiform activity. EEG FINDINGS: This is a 21 channel routine EEG recording patient utilizing 10/20 international system with referential and bipolar montages. Background consists of well developed, well regulated, moderate voltage activity 9 hertz alpha. Background is posterior dominant and reactive to eye opening and closing. Photic driving response was not seen. Mild drowsiness was seen with appearance of bilaterally symmetric theta frequency rhythm. Deeper stages of sleep were not seen. No focal or generalized epileptiform activity was seen. EKG channel showed no arrhythmia. IMPRESSION: This is a normal awake and drowsy EEG. No focal, lateralized, or epileptiform activity was seen. MMODL / IJN: [id number] /
== END 2021-05-23 18:05 | disposition home health service (06) ==
LOC: EC 20:32 → 4SSUR 05-22 00:30 → INTOOBSV 05-22 00:30 → 4SSUR 05-22 02:00 → UNDODISIN 05-23 18:05
PROVIDERS: ADMIT Hospitalist; ATTEND Hospitalist
DX: R41.82 Altered mental status, unspecified (principal); Z20.822 Contact with and (suspected) exposure to COVID-19; C95.91 Leukemia, unspecified, in remission; E87.1 Hypo-osmolality and hyponatremia; F03.90 Unspecified dementia, unspecified severity, without behavioral disturbance, psychotic disturbance, mood disturbance, and anxiety; F12.10 Cannabis abuse, uncomplicated; F17.210 Nicotine dependence, cigarettes, uncomplicated; F20.9 Schizophrenia, unspecified; F31.9 Bipolar disorder, unspecified; J44.9 Chronic obstructive pulmonary disease, unspecified; M06.9 Rheumatoid arthritis, unspecified; R63.1 Polydipsia; Z79.51 Long term (current) use of inhaled steroids; Z80.6 Family history of leukemia; Z85.828 Personal history of other malignant neoplasm of skin; Z87.19 Personal history of other diseases of the digestive system
CPT/HCPCS: 99285; 82075; 36415; 94640; 94760 ×2; 95819; 80053; 80048; 82607; 82746; 82803; 85025; 81003; 86780; 80306; 87635; 71046; 70450; G0378 ×2; J1650; J7512

== ENCOUNTER → 2021-06-29 | Outpatient (CLI) | payer MEDICARE, OTHER ==
--- NOTE | 2021-06-29 20:14 | CTL ---
EXAMINATION TYPE: CT Low Dose Lung DATE OF EXAM ORDERED: 06/29/2021 HISTORY: 61-year-old male Personal history of tobacco use. Lung cancer screening CT DLP: 2.[address] CTDI: 1.9 mGy Automated exposure control for dose reduction was used. SCREENING VISIT: Baseline screening COMPARISON: 10/28/2019 TECHNIQUE: Low dose computed tomography scan was performed through the chest with coronal and sagitta l reconstructions. CT DIAGNOSTIC QUALITY: Satisfactory FINDINGS: Heart normal size without pericardial effusion. LAD and RCA coronary artery calcifications are presen t. Aorta normal caliber with conventional arch was a branching anatomy. A few nonenlarged mediastinal lymph nodes measuring up to 8 mm in the AP window. No thoracic adenopat hy by CT size criteria. Mild to moderate centrilobular emphysema. [id number] diffuse bronchial wall thickening. A few s cattered tiny calcified granulomas. Layering secretions/debris within the blank and right mainstem bronchus. Minimal within the left georgina nstem bronchus. There is a new 7 mm pulmonary nodule subpleural anterior right midlung, axial image 152 A few additional tiny 2 to 3 mm pulmonary nodules on the left remain unchanged. No consolidation or pleural effusion. There is circumferential wall thickening lower third esophagus, for example, axial image 32 with a sm all hiatal hernia noted. Mild diffuse low-density thickening of the bilateral adrenal glands is unchanged. Bones: Possible subacute to chronic fracture deformities left posterior 10th and 11th and ribs just a djacent to the costovertebral joint. Mild degenerative change right sternoclavicular joint. IMPRESSION: 1. Lung RADS Category 4A ( Probably suspicious, 5-15% chance of malignancy). A new 7 mm subpleural pu lmonary nodule anterior right midlung. Other scattered tiny 2 to 3 mm pulmonary nodules are stable. T hree-month follow-up low-dose CT chest recommended to reassess. 2. COPD with mild to moderate emphysema. Prominent secretions/debris within the blank and right main stem bronchus, minimal in the left mainstem bronchus. 3. Small hiatal hernia and some circumferential wall thickening of the lower third of the esophagus. Correlate for gastroesophageal reflux and esophagitis. CT LUNG RAD AND CT CHEST RECOMMENDATION: Lung-Rad 4A Suspicious: Follow-up 3 month LDCT or PET/CT may be used when there is a > 8 mm solid component.
== END | disposition home or self-care (01) ==
LOC: RADCTMAIN 11:21
PROVIDERS: ATTEND Internal Medicine Hematology & Oncology
DX: R91.1 Solitary pulmonary nodule (principal); K44.9 Diaphragmatic hernia without obstruction or gangrene; J43.9 Emphysema, unspecified; Z87.891 Personal history of nicotine dependence
CPT/HCPCS: 71271

== ENCOUNTER → 2021-10-10 | Outpatient (CLI) | payer MEDICARE, OTHER ==
[2021-10-10 14:14] LABS: African American GFR (CKD) >90 (>60 ml/min/1.73 sqM); Blood Urea Nitrogen 5 mg/dL (9-20); Non-African American GFR(CKD) >90 (>60 ml/min/1.73 sqM)
--- NOTE | 2021-10-10 15:27 | CT ---
EXAMINATION TYPE: CT chest w con DATE OF EXAM: 10/10/2021 COMPARISON: Chest CT December 29, 2018 and older CTs. Low-dose lung screening CT June 29, 2021 HISTORY: h/o lung nodule CT DLP: 245.7 mGycm. Automated Exposure Control for Dose Reduction was Utilized. TECHNIQUE: CT scan of the thorax is performed following with IV Contrast, patient injected with 100 mL of Isovue 300. FINDINGS: LUNGS: Background mild to moderate underlying emphysematous change greatest in the upper lungs is red emonstrated. At the site of prior focal scarring there is redemonstration of 6 x 5 mm nodularity axia l image 32 unchanged from most recent low-dose lung screening CT. No new or enlarging greater than 5 mm pulmonary nodules. Occasional scattered micronodule is stable. MEDIASTINUM: There are no new greater than 1 cm hilar or mediastinal lymph nodes. No cardiomegaly o r pericardial effusion is seen. Coronary artery calcification redemonstrated. Persistent severe susp icious wall thickening in the mid to distal esophagus past subcarinal level beginning axial image 28 most prominent axial image 35 extending to axial image 52 up to the small hiatal hernia. OTHER: Small sized hiatal hernia. Subareolar gynecomastia redemonstrated IMPRESSION: 1. Stable small anterior 6 mm nodule at site of mild scarring more remote studies favors postinflamma tory etiology. Advise repeat CT or low-dose lung screening CT in 9-12 months time to reassess. 2. Moderate to severe wall thickening in the distal esophagus over a moderate length segment. I would advise direct visualization to rule out underlying neoplasm. Follow-up advised.
== END ==
LOC: RADCTMAIN 13:14
PROVIDERS: ATTEND Internal Medicine Hematology & Oncology
DX: R91.1 Solitary pulmonary nodule (principal); C92.11 Chronic myeloid leukemia, BCR/ABL-positive, in remission
CPT/HCPCS: 82565; 84520; 71260; 36415; Q9967

== ENCOUNTER → 2022-05-01 | Outpatient (CLI) | payer MEDICARE, OTHER ==
--- NOTE | 2022-05-03 13:47 | CT ---
EXAMINATION TYPE: CT chest wo con DATE OF EXAM: 05/01/2022 COMPARISON: 10/10/2021 HISTORY: f/u lung nodule CT DLP: 363.80 mGycm. Automated Exposure Control for Dose Reduction was Utilized. TECHNIQUE: CT scan of the thorax is performed without IV contrast. FINDINGS: Subpleural parenchymal nodule in the right upper lobe anteriorly is stable. There are a few scattered sub-6 mm nodules which are also stable. No new or suspicious lung mass or nodule seen. There is moderate emphysematous change. There is no airspace filling density or interstitial density. There is no pleural effusion, pleural thickening or pneumothorax. The great vessels chest are normal and there is no mediastinal, hilar or axillary adenopathy. The osseous structures are intact. Limited scanning through the upper abdomen reveals no gross abnormality. IMPRESSION: 1. Stable subpleural parenchymal nodule in the anterior right upper lobe. 2. No new or suspicious lung mass or nodule. 3. No acute cardiopulmonary disease. 4. Moderate emphysema.
== END | disposition home or self-care (01) ==
LOC: RADCTMAIN 16:41
PROVIDERS: ATTEND Internal Medicine Hematology & Oncology
DX: R91.1 Solitary pulmonary nodule (principal); J43.9 Emphysema, unspecified
CPT/HCPCS: 71250

== ENCOUNTER 2022-05-21 09:54 | Emergency (ER) | payer MEDICARE, OTHER ==
[2022-05-21 09:59] VITALS: BP 143/82; TEMP 98.2
[2022-05-21] MEDS ORDERED: DEXAMETHASONE SOD PHOSPHATE 10 MG/ML 1 ML VIAL IVP STA (10:11)
[2022-05-21] MEDS ORDERED: IPRATROPIUM-ALBUTEROL 3 ML NEB INHALATION STA (10:11)
--- NOTE | 2022-05-21 10:13 | ED ---
SOB HPI - General Chief Complaint: Shortness of Breath Stated Complaint: low oxygen Time Seen by Provider: 05/21/22 10:02 Source: patient, RN notes reviewed Mode of arrival: wheelchair Limitations: no limitations - History of Present Illness Initial Comments: This is a 63-year-old male who presents to the emergency department for low oxygen saturation and shortness of breath. Patient was sent over from the [facility], where he is being treated for leukemia. Due to lack of air movement on auscultation of his lungs and shortness of breath, the [facility] wanted him to be evaluated in the emergency department. Patient has known emphysema and has been out of his Ventolin inhaler for 3 days, which he believes is contributing to his symptoms. His providers at the [facility] wanted to ensure he was not developing a pneumonia. Denies any fevers, chills, sore throat, cough, chest pain, palpitations, abdominal pain, nausea, vomiting, diarrhea, back pain, or headaches. MD Complaint: shortness of breath Onset/Timin -: days(s) Known History Of: COPD - Related Data Home Medications Medication Instructions Recorded Confirmed Albuterol Sulfate [Ventolin HFA] 2 puff INHALATION RT-Q4H PRN 09/06/20 05/21/22 Haloperidol Decanoate [Haldol D] 100 mg IM Q30D 09/06/20 05/21/22 Previous Rx's Medication Instructions Recorded Albuterol Inhaler [Ventolin Hfa 2 puff INHALATION RT-QID #8 gm 05/21/22 Inhaler] Levofloxacin [Levaquin] 750 mg PO DAILY 5 Days #5 tab 05/21/22 predniSONE 50 mg PO DAILY #5 tab 05/21/22 Allergies Allergy/AdvReac Type Severity Reaction Status Date / Time Penicillins Allergy Anaphylaxis Verified 05/21/22 11:04 Review of Systems ROS Statement: Those systems with pertinent positive or pertinent negative responses have been documented in the HPI. ROS Other: All systems not noted in ROS Statement are negative. Past Medical History Past Medical History: Cancer, COPD, Rheumatoid Arthritis (RA) Additional Past Medical History / Comment(s): CML-takes oral chemo, skin cancer with removals, benign colon polyps, closed head injury History of Any Multi-Drug Resistant Organisms: None Reported Past Surgical History: Orthopedic Surgery Additional Past Surgical History / Comment(s): Colonoscopy/benign polypectomy, skin cancer removals, L upper leg with kira, Bone marrow bx. Past Anesthesia/Blood Transfusion Reactions: Motion Sickness Past Psychological History: Depression, Schizophrenia Smoking Status: Current every day smoker, Heavy tobacco smoker Past Alcohol Use History: None Reported Past Drug Use History: Marijuana - Past Family History Father Family Medical History: Cancer Additional Family Medical History / Comment(s): LEUKEMIA Brother(s) Family Medical History: Deep Vein Thrombosis (DVT) Mother Family Medical History: No Reported History Additional Family Medical History / Comment(s): Mother was healthy. General Exam Limitations: no limitations General appearance: alert, in no apparent distress Head exam: Present: atraumatic, normocephalic, normal inspection Neck exam: Present: normal inspection. Absent: tenderness, meningismus, lymphadenopathy Respiratory exam: Present: wheezes (in all lung thomas), decreased breath sounds, prolonged expiratory. Absent: accessory muscle use Cardiovascular Exam: Present: regular rate, normal rhythm, normal heart sounds. Absent: systolic murmur, diastolic murmur, rubs, gallop, clicks Neurological exam: Present: alert, oriented X3, CN II-XII intact Psychiatric exam: Present: normal affect, normal mood Skin exam: Present: warm, dry, intact, normal color. Absent: rash Course Vital Signs 05/21/22 05/21/22 05/21/22 09:56 10:04 11:45 Temperature 98.2 F Pulse Rate 102 H 102 H Respiratory 22 20 22 Rate Blood Pressure 143/82 O2 Sat by Pulse 88 L 95 Oximetry 05/21/22 05/21/22 12:04 12:10 Temperature Pulse Rate 101 H 103 H Respiratory Rate Blood Pressure O2 Sat by Pulse Oximetry Medical Decision Making - Medical Decision Making This is a 62-year-old male who presents to the emergency department for shortness of breath and low oxygen saturation. Patient noted to have a markedly elevated white blood cell count and carbon dioxide. Chest x-ray did not reveal any signs of a pneumonia, but did suggest an acute on chronic bronchitis. Patient was given a DuoNeb treatment, however he continued to have oxygen satu rations around 88% and had visibly labored breathing. Discussed with the patient the risks for progressive pulmonary deterioration, and advised he remain here for admission and further management. Diagnosis of COPD and leukemia further increase this risk. Patient declined admission despite my strongest recommendations and states that he "has things to do". Patient expresses understanding when warned of the risks including significant morbidity and possibly . Given the patient's very concerning clinical presentation, I did require he signed an AMA form prior to leaving. Patient did so accordingly and left against medical advice. I did send rx for Ventolin inhaler, prednisone, and Levofloxacin. Patient declined 40 mEq of potassium for hypokalemia in the emergency department. - Lab Data Result diagrams: 05/21/22 11:01 05/21/22 11:01 Lab Results 05/21/22 05/21/22 05/21/22 Range/Units 11:01 11:01 11:01 WBC 18.9 H (3.8-10.6) k/uL RBC 4.65 (4.30-5.90) m/uL Hgb 15.0 (13.0-17.5) gm/dL Hct 44.7 (39.0-53.0) % MCV 96.0 (80.0-100.0) fL MCH 32.2 (25.0-35.0) pg MCHC 33.5 (31.0-37.0) g/dL RDW 13.8 (11.5-15.5) % Plt Count 197 (150-450) k/uL MPV 7.2 Neutrophils % 93 % Lymphocytes % 3 % Monocytes % 3 % Eosinophils % 1 % Basophils % 0 % Neutrophils # 17.6 H (1.3-7.7) k/uL Lymphocytes # 0.5 L (1.0-4.8) k/uL Monocytes # 0.6 (0-1.0) k/uL Eosinophils # 0.1 (0-0.7) k/uL Basophils # 0.1 (0-0.2) k/uL Sodium 126 L (137-145) mmol/L Potassium 2.9 L (3.5-5.1) mmol/L Chloride 78 L (98-107) mmol/L Carbon Dioxide 38 H (22-30) mmol/L Anion Gap 10 mmol/L BUN 2 L (9-20) mg/dL Creatinine 0.52 L (0.66-1.25) mg/dL Est GFR (CKD-EPI)AfAm >90 (>60 ml/min/1.73 sqM) Est GFR (CKD-EPI)NonAf >90 (>60 ml/min/1.73 sqM) Glucose 128 H (74-99) mg/dL Calcium 8.4 (8.4-10.2) mg/dL Total Bilirubin 0.9 (0.2-1.3) mg/dL AST 33 (17-59) U/L ALT 21 (4-49) U/L Alkaline Phosphatase 69 (38-126) U/L Troponin I (0.000-0.034) ng/mL NT-Pro-B Natriuret Pep pg/mL Total Protein 6.6 (6.3-8.2) g/dL Albumin 4.3 (3.5-5.0) g/dL Coronavirus (PCR) (Not Detectd) Influenza Type A RNA Not Detected (Not Detectd) Influenza Type B (PCR) Not Detected (Not Detectd) 05/21/22 05/21/22 05/21/22 Range/Units 11:01 11:01 11:01 WBC (3.8-10.6) k/uL RBC (4.30-5.90) m/uL Hgb (13.0-17.5) gm/dL Hct (39.0-53.0) % MCV (80.0-100.0) fL MCH (25.0-35.0) pg MCHC (31.0-37.0) g/dL RDW (11.5-15.5) % Plt Count (150-450) k/uL MPV Neutrophils % % Lymphocytes % % Monocytes % % Eosinophils % % Basophils % % Neutrophils # (1.3-7.7) k/uL Lymphocytes # (1.0-4.8) k/uL Monocytes # (0-1.0) k/uL Eosinophils # (0-0.7) k/uL Basophils # (0-0.2) k/uL Sodium (137-145) mmol/L Potassium (3.5-5.1) mmol/L Chloride (98-107) mmol/L Carbon Dioxide (22-30) mmol/L Anion Gap mmol/L BUN (9-20) mg/dL Creatinine (0.66-1.25) mg/dL Est GFR (CKD-EPI)AfAm (>60 ml/min/1.73 sqM) Est GFR (CKD-EPI)NonAf (>60 ml/min/1.73 sqM) Glucose (74-99) mg/dL Calcium (8.4-10.2) mg/dL Total Bilirubin (0.2-1.3) mg/dL AST (17-59) U/L ALT (4-49) U/L Alkaline Phosphatase (38-126) U/L Troponin I 0.021 (0.000-0.034) ng/mL NT-Pro-B Natriuret Pep 117 pg/mL Total Protein (6.3-8.2) g/dL Albumin (3.5-5.0) g/dL Coronavirus (PCR) Not Detected (Not Detectd) Influenza Type A RNA (Not Detectd) Influenza Type B (PCR) (Not Detectd) - EKG Data EKG Comments: Normal sinus rhythm. Possible right and left atrial enlargement. Pattern consistent with pulmonary disease. Left anterior fascicular block. Ventricular rate 98 bpm, IL interval 179 ms, QRS duration 105 ms, QTC 417 ms. - Radiology Data Radiology results: report reviewed, image reviewed Disposition Clinical Impression: Acute exacerbation of chronic bronchitis Disposition: Left Against Medical Advice Prescriptions: Levofloxacin [Levaquin] 750 mg PO DAILY 5 Days #5 tab predniSONE 50 mg PO DAILY #5 tab Albuterol Inhaler [Ventolin Hfa Inhaler] 2 puff INHALATION RT-QID #8 gm Referrals: None,Stated [Primary Care Provider] - 1-2 days
--- NOTE | 2022-05-21 10:53 | XR ---
EXAMINATION TYPE: XR chest 2V DATE OF EXAM: 05/21/2022 COMPARISON: 05/22/2021 and 04/02/2019 HISTORY: 62-year-old male low oxygen saturation, shortness of breath TECHNIQUE: PA and lateral views FINDINGS: Heart normal size. Aorta and pulmonary vasculature within normal limits. Mild central and perihilar i nterstitial prominence more so on the right. Hyperinflation. Bilateral nipple shadows. No tadeo conso lidation or pleural effusion. IMPRESSION: 1. COPD and chronic changes. Central interstitial prominence could reflect a prominent component of c hronic bronchitis versus superimposed acute bronchitis. Otherwise, no acute process seen. 2. Recommend ongoing annual lung cancer screening CT. This can be used for surveillance of the patien t's 7 mm right upper lobe pulmonary nodule.
[2022-05-21 11:18] LABS: Basophils # (A) 0.1 k/uL (0-0.2); Basophils % (A) 0 %; Eosinophils # (A) 0.1 k/uL (0-0.7); Eosinophils % (A) 1 %; HCT 44.7 % (39.0-53.0); Lymphocytes # (A) 0.5 k/uL (1.0-4.8); Lymphocytes % (A) 3 %; MCH 32.2 pg (25.0-35.0); MCHC 33.5 g/dL (31.0-37.0); Mean Platelet Volume 7.2; Monocytes # (A) 0.6 k/uL (0-1.0); Monocytes % (A) 3 %; Neutrophils # (A) 17.6 k/uL (1.3-7.7); Neutrophils % (A) 93 %; Platelet Count 197 k/uL (150-450); RBC 4.65 m/uL (4.30-5.90); RDW 13.8 % (11.5-15.5); WBC 18.9 k/uL (3.8-10.6)
[2022-05-21 11:34] LABS: ALT 21 U/L (4-49); AST 33 U/L (17-59); African American GFR (CKD) >90 (>60 ml/min/1.73 sqM); Albumin 4.3 g/dL (3.5-5.0); Alkaline Phosphatase 69 U/L (38-126); Blood Urea Nitrogen 2 mg/dL (9-20); Calcium 8.4 mg/dL (8.4-10.2); Chloride 78 mmol/L (98-107); Glucose 128 mg/dL (74-99); Non-African American GFR(CKD) >90 (>60 ml/min/1.73 sqM); Potassium 2.9 mmol/L (3.5-5.1); Sodium 126 mmol/L (137-145); Total Bilirubin 0.9 mg/dL (0.2-1.3); Total Protein 6.6 g/dL (6.3-8.2)
[2022-05-21 11:40] LABS: Anion Gap 10 mmol/L
[2022-05-21 11:45] VITALS: RESP 22
[2022-05-21 11:49] LABS: Carbon Dioxide 38 mmol/L (22-30)
[2022-05-21] MEDS ORDERED: POTASSIUM CHLORIDE ER 20 MEQ TAB.ER PO STA (11:57)
[2022-05-21 12:11] VITALS: PULSE 103
== END 2022-05-21 12:43 | disposition left against medical advice (07) ==
LOC: EC 09:54
DX: J42 Unspecified chronic bronchitis (principal); F17.200 Nicotine dependence, unspecified, uncomplicated; Z20.822 Contact with and (suspected) exposure to COVID-19; Z88.0 Allergy status to penicillin
CPT/HCPCS: 36415; 94640; 93005; 83880; 80053; 84484; 85025; 87502; 87635; 71046; 99285; 96374; J1100